=== PATIENT | male | born 1940 | race Caucasian/White ===

== ENCOUNTER 2019-02-02 09:10 | Emergency (ER) | payer MEDICARE, SELFPAY ==
[2019-02-02 09:20] VITALS: PULSE 87; RESP 16; TEMP 36.9; O2SAT 98
--- NOTE | 2019-02-02 09:45 | ED.GENADUL_ITS ---
Discharge Plan Disposition Patient Disposition: HOME Condition: Serious Discharge Details Chief Complaint: Abd Prob Clinical Impression: Abdominal mass, RUQ (right upper quadrant), Urinary retention, Elevated liver enzymes Primary Care Provider: None,None ED Provider: Sidra Taylor Home Meds and New Rx's Prescriptions: Continued omeprazole 20 mg Capsule,Delayed Release(Dr/Ec) 20 mg PO DAILY RF: 0 tamsulosin 0.4 mg Capsule 0.8 mg PO QID RF: 0 Discharge Instructions Instructions: Urinary Retention in Men (ED), Urinary Leg Bag (GEN) Additional Instructions: Encourage hydration. Please follow up with urology for your urinary retention. Catheter care as instructed by nursing. technical training coordinator will call with appointment, number listed below if you do not hear from them Tuesday. In regard to your mass, I am unclear as to your exact diagnosis but it is highly suspicious for cancer. Have placed a request for palliative care consultation. technical training coordinator will contact you regarding primary care follow up. If you develop pain, fevers, change in bowel habits or other new/worsening symptoms please seek care urgently once again. Discharge Data Discharge Date/Time-TO BE ENTERED AT DEPARTURE: 02/02/19 16:29 Medical Decision Making Patient presents today with fairly vague complaints. He is initially concerned about his urination and feels that he has had more urinary hesitancy and frequency recently. No dysuria, no scrotal pain. Denies any flank pain. Has known history of BPH and reports that he has been evaluated by urologist historically was advised Dukes catheter placement for which the patient has not followed through as of yet. Denies any fevers or chills. Patient also reports she fell 2 days ago when he lost his balance while furniture walking. Patient had polio as a child in his chronic weakness associated with this. Reports that he typically walks with 2 more markers but at home walks with one and furniture walks the other arm. Reports that he lost his balance and went forward striking his head against the wall. No loss of consciousness but states that he was dazed 20 minutes. Denies any headache at this time. On exam, he is resting comfortably. No outward evidence of trauma on exam. No abdominal pain with palpation. In the patient's age and mechanism of injury, I feel that imaging is appropriate. This is had some urinary symptoms, will obtain a postvoid residual, urinalysis and assess patient's kidney function with baseline labs. Patient had >600cc in his bladder on bladder scan, did not need to urinate. Will place dukes. Patient tolerated insertion well. CT was reviewed by radiologist: Images obtained through the lung apices are unremarkable. Tracheolaryngeal structures appear intact. No cervical mass or adenopathy seen. There is upper cervical kyphosis. There are degenerative changes of the facet joints and vertebral endplates. There is marked narrowing of intervertebral disc spaces, particularly at C4-5 and C5-6. No evidence of acute fracture or facet dislocation. There is moderate generalized cerebral atrophy. There is no evidence of acute intracranial hemorrhage, mass effect or midline shift. No calvarial fracture identified. The orbital and temporal bone structures appear intact. Paranasal sinuses and mastoid air cells are well aerated. IMPRESSION: No evidence of acute cervical fracture or dislocation. No evidence of acute intracranial injury. Labs significant for mild anemia with Hgb of 13.3. Potassium slightly low at 3.4. His AST is elevated at 187, ALT is elevated 288, alk phos elevated 331. Albumin is low at 2.7. Urine significant for moderate amount of blood, this may be associated with the catheter insertion. Negative nitrate, negative leukocyte esterase. Contacted the patient's primary care and patient has not had elevated liver enzymes historically. I am concerned that this may be associated with his recent GI upset for which he says primary care week ago. Plan for ultrasound. I discussed the findings with the patient and his family. Patient is now reporting that he has had increased fatigue over the past year. Is endorsing more right upper quadrant pain. Has had unexplained weight loss, at least 10 pounds in the past month. Does report that his appetite has been slightly diminished. Is now endorsing difficulty sleeping. Endorses night sweats. Daughter is reporting that she has been concerned regarding his color change and increased fatigue over the past 6 months. Patient has never had a colonoscopy and endoscopy. His brother did pass away from gastric cancer. Will change ultrasound order to CT abdomen and pelvis. FINDINGS: Images obtained through the lung bases are unremarkable. Spleen contains multiple small calcified granulomas. The gallbladder is distended with a markedly thickened and heterogeneous irregular contour wall. There is loss of the fat plane between the gallbladder and hepatic flexure of the colon. There is increased attenuation of pericholecystic fat at multiple sites. There is loss of the fat plane between the gallbladder and hepatic parenchyma with abnormal attenuation in the adjacent hepatic parenchyma. No biliary dilatation seen. There is portal adenopathy with enlarged portal nodes measuring up to about 3 cm in diameter. Slight prominence of mesenteric lymph nodes is noted but is nonspecific. No other focal bowel abnormality seen. No evidence of obstruction. Pancreas appears normal. Abdominal aorta is of normal diameter with some calcified thrombus of the wall but no aneurysm and no significant abnormality of major branch vessels. Kidneys and adrenals are unremarkable in appearance except for a couple of incidental left renal cysts. Prostate is enlarged. Urinary bladder is collapsed with a Dukes catheter in position and the urinary bladder wall is probably thickened. 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 Portal adenopathy noted. Discussed these. Findings with the patient and his family at length. We did discuss that this is very suspicious for cancerous etiology. Patient is very excited about the news. He reports that I have been praying for this for many years. It seems to be linked to the fact that his significant other has been deteriorating health. At this time, he does not wish to pursue any treatment. Does not want referral to oncology. We did discuss palliative versus hospice care and a referral will be sent. Patient is new to the area and I have asked her career manager help establish prompt follow-up with primary care. I did offer the patient any assistance I could offer to help with symptomatic management but at this point, he denies any pain, vomiting. Feels like he is managing well. He was given return precautions and is able to return with any new or worsening symptoms. All his questions and concerns were addressed and he is in agreement with this plan. technical training coordinator came to evaluate the patient and is inabolved in follow up plan. HPI General Mode of arrival: wheelchair . Date/Time Provider Initiated Documentation: 02/02/19 09:25 . Limitations to Documentation: no limitations . Information obtained by: patient, family and RN notes reviewed . HPI Narrative: Patient is an 78-year-old male with history of polio and BPH, presenting today with multiple chief complaints. Patient initially reports that he fell 2 days ago and struck his head. He does typically walk with 2 arm crutches. When he is at home, uses 1 and furniture walks with the other hand. Reports he was at home and began losing his balance and fell forward striking his head against the wall. Denies any loss of consciousness but states that he was kind of out of it for approximately 20 minutes. then had noted that the patient was belligerent. He denies any headache at this time. Has had chronic visual changes but no acute change in sitting his head. Denies any other injury the time of the incident. States that he does not fall infrequently. Patient is also endorsing some abdominal fullness particularly over the lower aspect. Patient does have history of prostrate hypertrophy. He has been evaluated by urologist who recommended Dukes insertion but patient reports that they had declined at that time. He denies any dysuria. States that in recent days he is only been able to dribble and that his prostate has become more symptomatic for him. He denies any fevers or chills. Denies any back pain. Patient does have chronic pain in his neck but no change with this. He denies any chest pain. Shortness of breath. Is not noted any rash. Related Data Home Medications Medication Instructions Recorded Confirmed omeprazole 20 mg PO DAILY 02/02/19 02/02/19 tamsulosin 0.8 mg PO QID 02/02/19 02/02/19 General Stated Complaint: Abd Prob ALEN: 3 Review of Systems Constitutional Constitutional: Reports as per HPI, Denies chills, Reports fatigue, Denies fever(s), Denies headache(s), Reports night sweats, Denies weakness and Reports weight loss Eyes Eyes: Reports as per HPI, Denies blurry vision, Denies change in vision and Denies loss of vision ENT Ears, Nose, Mouth, and Throat: Denies abnormal hearing and Denies headache(s) Cardiovascular Cardiovascular: Reports as per HPI, Denies chest pain and Denies dyspnea Respiratory Respiratory: Reports as per HPI, Denies cough, Denies pain on inspiration, Denies pain with cough and Denies dyspnea Gastrointestinal Gastrointestinal: Reports as per HPI, Denies abdominal pain, Denies change in bowel habits, Denies nausea, Denies vomiting and Reports other ( Indigestion) Genitourinary Genitourinary: Reports as per HPI, Denies dysuria, Denies flank pain, Denies scrotal swelling, Denies testicular mass, Denies testicular pain, Reports urinary frequency, Reports urinary hesitancy, Denies urinary incontinence and Denies urinary urgency Musculoskeletal Musculoskeletal: Reports as per HPI Integumentary/Breasts Skin/Breast: Reports as per HPI and Denies rash Neurologic Neurologic: Reports as per HPI, Denies abnormal hearing, Denies abnormal movements, Denies abnormal speech, Denies headache(s), Denies lack of co ordination, Denies focal weakness, Denies loss of vision, Denies seizure-like activity, Denies paresthesias and Denies weakness Endocrine Endocrine: Reports fatigue [facility] Social History Smoking/Tobacco Use Status: Never Alcohol Intake: former Substance use type: does not use Current gender identity: male Do you feel safe at home: Yes Do you feel safe in your relationship?: Yes Exam Const General: cooperative, healthy appearing, comfortable, no acute distress, well developed and well groomed Nutritional Appearance: average body habitus and well nourished Orientation: alert, awake and oriented x3 HENMT Head: normal to inspection, no palpable skull fracture, normocephalic and atraumatic Ears: hearing grossly normal bilaterally, external ears normal and TM's normal bilaterally General nose exam: external nose normal Mouth: oral mucosae normal, lip normal and tongue normal Throat: posterior oropharynx normal Eyes General: appearance normal, both eyes and all related structures Visual White: normal visual white by confrontation Alignment and Position: alignment normal Periorbital: periorbital findings normal Eyelids: eyelids normal Conjunctivae: conjunctivae normal Pupils: PERRL EOM: EOM intact bilaterally Neck Neck: normal visual inspection, full ROM, no lymphadenopathy, no meningeal signs, trachea midline and supple Chest Chest: normal inspection of the chest, normal palpation of entire chest wall, no crepitus and no localized rib tenderness Resp Effort & Inspection: normal respiratory effort, able to speak in complete sentences and no respiratory distress Auscultation: clear to auscultation bilaterally, no rales, no rhonchi and no wheezes Cardio Rate: regular rate Rhythm: regular rhythm Heart Sounds: S1 normal and S2 normal GI Inspection: normal to inspection, no abdominal wall ecchymosis, no edema and non-distended Palpation: soft, not firm, no guarding, hepatomegaly, no pulsatile masses, not rigid, no splenomegaly and nontender Percussion: normal to percussion Auscultation: normal bowel sounds Back/Spine/Pelvis Back: no CVA tenderness Cervical Spine: normal cervical lordosis and cervical ROM normal Thoracic/Lumbar Spine: thoracic and lumbar spine normal to inspection, thoraco- lumbar ROM normal, No thoraco-lumbar ROM limited, No thoraco-lumbar spasm and No thoracic spinal tenderness Pelvis: no pain with anterior-posterior compression and no pain with lateral compression Skin General skin exam: no rashes or lesions noted Lesions: no lesions Rashes: no rashes Trauma: no lacerations or abrasions Wounds: no wounds Neuro General: alert, awake, oriented x3, gait normal, tone normal and moves all extremities Cranial Nerves: CN's II-XI intact bilaterally Cognition: normal cognition Speech: speech normal Gait: normal gait Motor: muscle tone normal throughout and strength 5/5 throughout Sensory Exam: no sensory deficits noted (no saddle paresthesias) Extrem General: normal to inspection, normal capillary refill, no pedal edema and no calf tenderness Psych Appearance: grossly normal and well kempt Mental Status: mental status grossly normal Speech and Movement: speech and movement normal Course Vital Signs Vital signs: Vital Signs Temperature 36.9 C 02/02/19 09:20 Pulse 87 02/02/19 09:20 Respiratory Rate 16 02/02/19 09:20 Pulse Oximetry 98 02/02/19 09:20 Temperature 36.9 C 02/02/19 09:20 Pulse 87 02/02/19 09:20 Respiratory Rate 16 02/02/19 09:20 Blood Pressure Position Supine 02/02/19 09:20 Pulse Oximetry 98 02/02/19 09:20 Oxygen Delivery Method Room Air 02/02/19 09:20 Oxygen Flow Rate 0 02/02/19 09:20 Pain Level 5 02/02/19 09:20
[2019-02-02 10:21] LABS: Abs Immature Grans 0.05 k/cumm (0.0-0.09); Absolute Basophil Count 0.03 k/cumm (0.0-0.2); Absolute Eosinophil Count 0.08 k/cumm (0.0-0.7); Absolute Lymphocyte Count 1.61 k/cumm (1.2-3.4); Absolute Monocyte Count 1.08 k/cumm (0.11-0.7); Absolute Neutrophil Count 6.37 k/cumm (1.2-6.7); Basophils % 0.3; Eosinophils % 0.9; HGB 13.3 g/dL (13.5-17.5); Immature Grans % 0.5; Lymphocytes % 17.5; Mean Corp. HGB Concentration 34.1 g/dL (32.0-36.0); Mean Corpuscular Hemoglobin 29.6 pg (27.0-33.0); Mean Corpuscular Volume 86.9 fL (80-95); Mean Platelet Volume 10.6 fL (8.0-11.0); Monocytes % 11.7; Neutrophils % 69.1; Platelet Count 307 x1000/uL (130-400); RBC 4.49 m/cumm (4.50-6.00); RBC Distribution Width 12.3 % (11.8-14.1); White Blood Cell Count 9.22 k/cumm (4.4-10.8)
[2019-02-02 10:45] LABS: Bilirubin Negative (Negative); Blood Moderate (Negative); Clarity Clear (Clear); Glucose Negative (Negative); Ketones Negative (Negative); Leukocyte Esterase Negative (Negative); Nitrite Negative (Negative); Specific Gravity 1.015 (1.005-1.025); pH 6.5 (5-8)
[2019-02-02] MEDS: Lactated Ringers 1,000 ML 125 ML IV (10:45)
[2019-02-02 10:51] LABS: ALT 288 U/L (16-63); AST 187 U/L (15-37); Albumin 2.7 g/dL (3.4-5.0); Alkaline Phosphatase 331 U/L (46-116); Anion Gap 10.4 mmol/L (3-11); BUN 16 mg/dL (7-18); Bilirubin, Total 0.6 mg/dL (0.2-1.0); CO2 26.6 mmol/L (21.0-32.0); CREATININE 0.95 mg/dL (0.70-1.30); Calcium 8.7 mg/dL (8.5-10.1); Chloride 102 mmol/L (98-107); Glucose 122 mg/dL (70-100); Potassium 3.4 mmol/L (3.5-5.1); Sodium 139 mmol/L (136-145); Total Protein 7.1 g/dL (6.4-8.2)
[2019-02-02 10:54] LABS: Bacteria Few HPF (Negative); C & S Indicated? No; Casts Negative LPF (Negative); Crystals Negative HPF (Negative); Epithelial Cells Negative HPF (Negative); Mucus Moderate (Negative); RBC >50 (0-2); WBC 0-2 HPF (0-5)
--- NOTE | 2019-02-02 10:55 | DI.CT_ITS ---
EXAM: CT HEAD CERVICAL SPINE WO CLINICAL HISTORY: fall. TECHNIQUE: CT examination of the cervical spine was performed utilizing multi slice acquisition and multiplanar reconstruction. Noncontrast cranial CT was performed. COMPARISON: No exams were available for comparison FINDINGS: Images obtained through the lung apices are unremarkable. Tracheolaryngeal structures appear intact. No cervical mass or adenopathy seen. There is upper cervical kyphosis. There are degenerative changes of the facet joints and vertebral e ndplates. There is marked narrowing of intervertebral disc spaces, particularly at C4-5 and C5-6. No evidence of acute fracture or facet dislocation. There is moderate generalized cerebral atrophy. There is no evidence of acute intracranial hemorrhag e, mass effect or midline shift. No calvarial fracture identified. The orbital and temporal bone stru ctures appear intact. Paranasal sinuses and mastoid air cells are well aerated. IMPRESSION: No evidence of acute cervical fracture or dislocation. No evidence of acute intracranial injury.
--- NOTE | 2019-02-02 12:00 | DI.CT_ITS ---
EXAM: CT ABDOMEN PELVIS W CLINICAL HISTORY: elevated liver enzymes, RUQ pain, diffuse discomfort. TECHNIQUE: CT examination of the abdomen and pelvis was performed utilizing biphasic hepatic imaging with intravenous infusion of 100 cc of Omnipaque 350. COMPARISON: No exams were available for comparison FINDINGS: Images obtained through the lung bases are unremarkable. Spleen contains multiple small calcified gra nulomas. The gallbladder is distended with a markedly thickened and heterogeneous irregular contour wall. Ther e is loss of the fat plane between the gallbladder and hepatic flexure of the colon. There is increas ed attenuation of pericholecystic fat at multiple sites. There is loss of the fat plane between the g allbladder and hepatic parenchyma with abnormal attenuation in the adjacent hepatic parenchyma. No bi liary dilatation seen. There is portal adenopathy with enlarged portal nodes measuring up to about 3 cm in diameter. Slight prominence of mesenteric lymph nodes is noted but is nonspecific. No other foc al bowel abnormality seen. No evidence of obstruction. Pancreas appears normal. Abdominal aorta is of normal diameter with some calcified thrombus of the wall but no aneurysm and no significant abnormality of major branch vessels. Kidneys and adrenals are unremarkable in appearance except for a couple of incidental left renal cysts. Prostate is enlarged. Urinary bladder is collaps ed with a Hutchinson catheter in position and the urinary bladder wall is probably thickened. IMPRESSION: Findings suspicious for gallbladder carcinoma with suspected invasion of surrounding structures inclu ding mesentery, hepatic flexure of the colon and liver. Portal adenopathy noted.
--- NOTE | 2019-02-02 12:11 | NUR.NOTE ---
at bedside reviewing results with pt Nursing Note:
[2019-02-02 12:30] VITALS: BP 129/70; PULSE 69; RESP 16; O2SAT 96
[2019-02-02 15:00] VITALS: BP 125/73; PULSE 70; RESP 16; O2SAT 95
--- NOTE | 2019-02-02 16:18 | NUR.NOTE ---
pt changed over to leg bag instructed on proper use Nursing Note:
[2019-02-02 16:33] VITALS: BP 132/87; PULSE 72; RESP 16; O2SAT 96
[2019-02-05 13:35] LABS: Hepatitis A Antibody IgM Negative (NEGAT); Hepatitis B Core Antibody Negative (NEGAT); Hepatitis B surface Ag Negative (NEGAT); Hepatitis C Ab w Rflx HCV PCR Negative (NEGAT)
--- NOTE | 2019-02-12 14:59 | CMPROGNOTE_ITS ---
- If Service Date Differs Date of service: 02/12/19 Time of Service: 14:59 Care Management Progress Note S/O: MEMO spoke Adams's daughter Susan Blandon her contact number is she was able to bring her Dad to his Urology appointment. She has not heard from Palliative care or new pcp referral. CM contacted [facility] and provided daughters number, as well as palliative both will follow up with her to schedule the appointments. MEMO also sent a referral to [facility] with Susan's contact information to review options counseling. CM provided contact information for questions or concerns.
== END 2019-02-02 16:29 | disposition home or self-care (01) ==
PROVIDERS: Emergency Provider Physician Assistant
DX: R19.07 Generalized intra-abdominal and pelvic swelling, mass and lump (principal); S09.90XA Unspecified injury of head, initial encounter; N40.1 Benign prostatic hyperplasia with lower urinary tract symptoms; R33.9 Retention of urine, unspecified; R94.5 Abnormal results of liver function studies; W18.49XA Other slipping, tripping and stumbling without falling, initial encounter
CPT/HCPCS: 36415; 51702; 80053; 86704; 86709; 86803; 87340; 96360; 99285; 70450; 72125; 74177; 81003; 81015; 85025; 99284

== ENCOUNTER → 2019-02-09 11:51 | Outpatient (BNVA) | payer MEDICARE, SELFPAY | PROVIDERS: Visit Provider Urology | DX: R33.9 Retention of urine, unspecified (principal) | CPT/HCPCS: 99203; 99214 ==

== ENCOUNTER → 2019-03-06 15:58 | Outpatient (BNVA) | payer MEDICARE, SELFPAY | PROVIDERS: PCP Nurse Practitioner Family; Referring Provider Nurse Practitioner Family; Visit Provider Urology | DX: Z46.6 Encounter for fitting and adjustment of urinary device (principal); R33.9 Retention of urine, unspecified; Z96.0 Presence of urogenital implants | CPT/HCPCS: 51705; 99212; 99213 ==

== ENCOUNTER → 2019-04-11 15:07 | Outpatient (BNVA) | payer MEDICARE, SELFPAY | PROVIDERS: PCP Nurse Practitioner Family; Referring Provider Nurse Practitioner Family; Visit Provider Nurse Practitioner Gerontology | DX: R33.9 Retention of urine, unspecified (principal); Z46.6 Encounter for fitting and adjustment of urinary device; I10 Essential (primary) hypertension | CPT/HCPCS: 51702; 99213 ==

== ENCOUNTER → 2019-05-14 13:55 | Outpatient (BNVA) | payer MEDICARE, SELFPAY | PROVIDERS: PCP Nurse Practitioner Family; Referring Provider Nurse Practitioner Family; Visit Provider Urology | DX: R33.9 Retention of urine, unspecified (principal) | CPT/HCPCS: 51702; 99213 ==

== ENCOUNTER 2019-05-22 22:10 | Outpatient (REF) | payer MEDICARE, SELFPAY ==
[2019-05-22 20:35] LABS: ALT 129 U/L (16-63); AST 43 U/L (15-37); Albumin 3.3 g/dL (3.4-5.0); Alkaline Phosphatase 103 U/L (46-116); Anion Gap 8.2 mmol/L (3-11); BUN 16 mg/dL (7-18); Bilirubin, Total 0.3 mg/dL (0.2-1.0); CO2 27.8 mmol/L (21.0-32.0); CREATININE 0.82 mg/dL (0.70-1.30); Calcium 9.1 mg/dL (8.5-10.1); Chloride 109 mmol/L (98-107); Glucose 84 mg/dL (74-106); Sodium 145 mmol/L (136-145); Total Protein 6.2 g/dL (6.4-8.2)
== END 2019-05-22 22:30 ==
LOC: LBN 22:10
PROVIDERS: PCP Nurse Practitioner Family; Visit Provider Family Medicine
DX: D37.6 Neoplasm of uncertain behavior of liver, gallbladder and bile ducts (principal)
CPT/HCPCS: 80053

== ENCOUNTER → 2019-06-12 12:53 | Outpatient (BNVA) | payer MEDICARE, SELFPAY | PROVIDERS: PCP Nurse Practitioner Family; Referring Provider Nurse Practitioner Family; Visit Provider Nurse Practitioner Gerontology | DX: R33.9 Retention of urine, unspecified (principal) | CPT/HCPCS: 51702; 99213 ==

== ENCOUNTER → 2019-07-11 13:52 | Outpatient (BNVA) | payer MEDICARE, SELFPAY | PROVIDERS: PCP Nurse Practitioner Family; Referring Provider Nurse Practitioner Family; Visit Provider Nurse Practitioner Gerontology | DX: R33.9 Retention of urine, unspecified (principal); Z46.6 Encounter for fitting and adjustment of urinary device; I10 Essential (primary) hypertension | CPT/HCPCS: 51702; 99213 ==

== ENCOUNTER → 2019-08-10 13:50 | Outpatient (BNVA) | payer MEDICARE, SELFPAY | PROVIDERS: PCP Nurse Practitioner Family; Referring Provider Nurse Practitioner Family; Visit Provider Urology | DX: R33.8 Other retention of urine (principal); Z46.6 Encounter for fitting and adjustment of urinary device; I10 Essential (primary) hypertension | CPT/HCPCS: 51702; 99212 ==

== ENCOUNTER 2019-08-31 12:08 | Outpatient (REF) | payer MEDICARE, SELFPAY ==
[2019-08-31 20:32] LABS: Clarity CLOUDY; Nucleated Cells 142 /MM3 (0-0); Source R KNEE
[2019-08-31 20:41] LABS: Polynuclear Cells 28 % (0-0)
[2019-08-31 20:42] LABS: Mononuclear Cells 72 % (0-0); Other Cells 0 0 (0-0)
== END 2019-08-31 12:28 ==
LOC: NCHCN 12:08
PROVIDERS: PCP Nurse Practitioner Family; Visit Provider Internal Medicine
DX: M25.461 Effusion, right knee (principal)
CPT/HCPCS: 87070; 87205; 89051; 89060

== ENCOUNTER 2019-09-13 11:13 | Outpatient (CLI) | payer MEDICARE, SELFPAY ==
--- NOTE | 2019-09-13 11:00 | DI.RAD_ITS ---
EXAM: XR STANDING ALIGNMENT CLINICAL HISTORY: right knee pain TECHNIQUE: COMPARISON: No exams were available for comparison FINDINGS: Standing alignment views were obtained. There are mild degenerative changes of both hips. There are moderate degenerative changes involving the joints of both knees. IMPRESSION:
--- NOTE | 2019-09-13 11:00 | DI.RAD_ITS ---
EXAM: XR KNEE RT 2V AP,LAT CLINICAL HISTORY: right knee pain TECHNIQUE: COMPARISON: No exams were available for comparison FINDINGS: Two views of the knee were obtained. There is marked narrowing of the medial tibiofemoral cartilagin ous joint space with subchondral sclerosis medial tibial plateau. Mild marginal osteophyte formation noted involving the joints of the knee. IMPRESSION: Moderate to severe degenerative change predominantly involving medial tibiofemoral joint
== END 2019-09-13 11:33 ==
PROVIDERS: PCP Nurse Practitioner Family; Referring Provider Nurse Practitioner Family; Visit Provider Student in an Organized Health Care Education/Training Program
DX: M25.561 Pain in right knee (principal); M16.0 Bilateral primary osteoarthritis of hip; M17.0 Bilateral primary osteoarthritis of knee; M25.761 Osteophyte, right knee; M17.11 Unilateral primary osteoarthritis, right knee; M17.12 Unilateral primary osteoarthritis, left knee; G14 Postpolio syndrome; I10 Essential (primary) hypertension; R33.8 Other retention of urine; Z46.6 Encounter for fitting and adjustment of urinary device
CPT/HCPCS: 51702; 99203; 99213; 99214; 73560; 77073

== ENCOUNTER 2019-10-04 02:47 | Outpatient (CLI) | payer MEDICARE, SELFPAY ==
[2019-10-04] MEDS: Breeza Beverage 473 ML BTL PO ×2 (10:16→10:17)
[2019-10-04] MEDS: Omnipaque 350 MG/ML 50 ML BTL PO (10:17)
[2019-10-04 10:55] LABS: CREATININE 0.91 mg/dL (0.70-1.30)
[2019-10-04] MEDS: Normal Saline - Diluent 50 ML VIAL IV (11:15)
[2019-10-04] MEDS: Omnipaque 350 MG/ML 100 ML BTL IJ (11:15)
--- NOTE | 2019-10-04 11:45 | DI.CT_ITS ---
EXAM: CT ABDOMEN PELVIS W CLINICAL HISTORY: METASTATIC CARCINOMA, C80.1 TECHNIQUE: CT examination of the abdomen and pelvis was performed with intravenous infusion of 100 c c of Omnipaque 350 and ingestion of dilute barium. COMPARISON: CT CT ABDOMEN PELVIS W from 02/02/2019 FINDINGS: Biphasic hepatic imaging was obtained. Examination is compared with prior study 02/02/2019. Patient reportedly has history of metastatic carcinoma. Images obtained through the lung bases are unremarkable. Gallbladder is markedly decreased in size since the prior study and there is markedly decreased gallb ladder wall thickness in comparison with the prior study. No biliary dilatation seen. Portal adenop athy again noted, mild, unchanged. Largest portal node measures roughly 24 x 9 millimeters in diamet er on transaxial imaging. No new adenopathy seen in the abdomen or pelvis. Pancreas appears normal. Spleen appears normal. Adrenals and kidneys appear normal except for an incidental lower pole left renal cyst, unchanged. N o focal bowel pathology identified, appendix is normal, no evidence of obstruction. Abdominal aorta is of normal diameter and no major vascular abnormality is seen. No significant abdominal wall hernia. No abdominal or pelvic adenopathy. There is a Hutchinson catheter in the urinary bladder which has a mildly thickened wall, nonspecific, susp ect bladder outlet obstruction. Nonspecific sclerotic focus in left pubic bone, unchanged from prior study. Bone scan may be obtaine d for further evaluation if clinically indicated. IMPRESSION: Interval decrease in size and wall thickness of gallbladder in a patient with reported history of car cinoma, presumably gallbladder carcinoma. Portal jose enlargement again noted unchanged from prior s tudy of January 2019. No evidence of remote metastatic disease.
== END 2019-10-04 03:07 ==
PROVIDERS: PCP Nurse Practitioner Family; Visit Provider Nurse Practitioner Family
DX: I10 Essential (primary) hypertension (principal); Z01.812 Encounter for preprocedural laboratory examination; D37.6 Neoplasm of uncertain behavior of liver, gallbladder and bile ducts; C80.1 Malignant (primary) neoplasm, unspecified; N32.89 Other specified disorders of bladder; N28.1 Cyst of kidney, acquired
CPT/HCPCS: 74177; 82565; J3490; Q9967

== ENCOUNTER → 2019-10-17 10:56 | Outpatient (BNVA) | payer MEDICARE, SELFPAY | PROVIDERS: PCP Nurse Practitioner Family; Referring Provider Nurse Practitioner Family; Visit Provider Nurse Practitioner Gerontology | DX: R33.8 Other retention of urine (principal); Z46.6 Encounter for fitting and adjustment of urinary device | CPT/HCPCS: 51702; 99213 ==

== ENCOUNTER → 2019-11-23 13:59 | Outpatient (BNVA) | payer MEDICARE, SELFPAY | PROVIDERS: PCP Nurse Practitioner Family; Referring Provider Nurse Practitioner Family; Visit Provider Urology | DX: R33.8 Other retention of urine (principal); I10 Essential (primary) hypertension | CPT/HCPCS: 51702; 99212 ==

== ENCOUNTER → 2020-01-03 09:09 | Outpatient (BNVA) | payer MEDICARE, SELFPAY | PROVIDERS: PCP Nurse Practitioner Family; Referring Provider Nurse Practitioner Family; Visit Provider Nurse Practitioner Gerontology | DX: R33.8 Other retention of urine (principal); I10 Essential (primary) hypertension | CPT/HCPCS: 51702; 99213 ==

== ENCOUNTER → 2020-01-24 10:16 | Outpatient (BNVA) | payer MEDICARE, SELFPAY | PROVIDERS: PCP Nurse Practitioner Family; Referring Provider Nurse Practitioner Family; Visit Provider Nurse Practitioner Gerontology | DX: R33.8 Other retention of urine (principal); Z46.6 Encounter for fitting and adjustment of urinary device; I10 Essential (primary) hypertension | CPT/HCPCS: 51702; 99213 ==

== ENCOUNTER → 2020-02-28 14:35 | Outpatient (BNVA) | payer MEDICARE, SELFPAY | PROVIDERS: PCP Nurse Practitioner Family; Referring Provider Nurse Practitioner Family; Visit Provider Urology | DX: R33.8 Other retention of urine (principal); Z46.6 Encounter for fitting and adjustment of urinary device; I10 Essential (primary) hypertension | CPT/HCPCS: 51702; 99212 ==

== ENCOUNTER → 2020-04-04 12:39 | Outpatient (BNVA) | payer MEDICARE, SELFPAY | PROVIDERS: PCP Nurse Practitioner Family; Referring Provider Nurse Practitioner Family; Visit Provider Urology | DX: R33.8 Other retention of urine (principal); Z46.6 Encounter for fitting and adjustment of urinary device | CPT/HCPCS: 51702; 99212 ==

== ENCOUNTER 2020-04-17 22:37 | Outpatient (REF) | payer MEDICARE, SELFPAY ==
[2020-04-17 21:27] LABS: Anion Gap 9.8 mmol/L (3-11); BUN 18 mg/dL (7-18); CO2 24.2 mmol/L (21.0-32.0); CREATININE 0.91 mg/dL (0.70-1.30); Calcium 9.2 mg/dL (8.5-10.1); Chloride 107 mmol/L (98-107); Glucose 97 mg/dL (74-106); Potassium 4.2 mmol/L (3.5-5.1); Sodium 141 mmol/L (136-145)
== END 2020-04-17 22:57 ==
LOC: NCHCN 22:37
PROVIDERS: PCP Nurse Practitioner Family; Visit Provider Nurse Practitioner Family
DX: I10 Essential (primary) hypertension (principal); E78.00 Pure hypercholesterolemia, unspecified; G62.9 Polyneuropathy, unspecified; G14 Postpolio syndrome; I73.9 Peripheral vascular disease, unspecified
CPT/HCPCS: 80048

== ENCOUNTER → 2020-05-05 09:52 | Outpatient (BNVA) | payer MEDICARE, SELFPAY | PROVIDERS: PCP Nurse Practitioner Family; Referring Provider Nurse Practitioner Family; Visit Provider Nurse Practitioner Gerontology | DX: R33.8 Other retention of urine (principal); Z46.6 Encounter for fitting and adjustment of urinary device | CPT/HCPCS: 51702; 99212 ==

== ENCOUNTER → 2020-06-10 14:26 | Outpatient (BNVA) | payer MEDICARE, SELFPAY | PROVIDERS: PCP Nurse Practitioner Family; Referring Provider Nurse Practitioner Family; Visit Provider Nurse Practitioner Gerontology | DX: R33.8 Other retention of urine (principal) | CPT/HCPCS: 51702; 99214 ==

== ENCOUNTER 2020-08-08 15:15 | Outpatient (REF) | payer MEDICARE, SELFPAY ==
[2020-08-08 20:38] LABS: Abs Immature Grans 0.03 10^3/uL (0.0-0.06); Absolute Basophil Count 0.07 10^3/uL (0.0-0.2); Absolute Eosinophil Count 0.17 10^3/uL (0.0-0.7); Absolute Lymphocyte Count 2.64 10^3/uL (1.2-3.4); Absolute Monocyte Count 0.89 10^3/uL (0.1-0.8); Absolute Neutrophil Count 4.94 10^3/uL (1.2-6.7); Basophils % 0.8; Eosinophils % 1.9; HCT 45.7 % (40.0-50.0); HGB 15.6 g/dL (13.5-17.5); Immature Grans % 0.3; Lymphocytes % 30.2; MCH 29.5 pg (27.0-33.0); MCHC 34.1 % (32.0-36.0); MCV 86.6 fL (80-95); MPV 11.2 fL (8.0-11.0); Monocytes % 10.2; Neutrophils % 56.6; Nucleated RBC 0 %; Platelet Count 191 10^3/uL (130-400); RBC 5.28 10^6/uL (4.36-5.78); RDW 13.2 % (11.8-14.1); WBC 8.74 10^3/uL (4.4-10.8)
[2020-08-08 21:05] LABS: ALT 44 U/L (16-63); AST 28 U/L (15-37); Albumin 3.8 g/dL (3.4-5.0); Alkaline Phosphatase 82 U/L (46-116); Anion Gap 9.9 mmol/L (3-11); BUN 25 mg/dL (7-18); Bilirubin, Total 0.5 mg/dL (0.2-1.0); CO2 24.1 mmol/L (21.0-32.0); CREATININE 1.1 mg/dL (0.70-1.30); Calcium 9.7 mg/dL (8.5-10.1); Chloride 106 mmol/L (98-107); Glucose 134 mg/dL (74-106); Potassium 4.3 mmol/L (3.5-5.1); Sodium 140 mmol/L (136-145); Total Protein 7.3 g/dL (6.4-8.2)
== END 2020-08-08 15:16 | disposition home or self-care (01) ==
LOC: NCHCN 15:15
PROVIDERS: PCP Nurse Practitioner Family; Visit Provider Family Medicine
DX: R10.9 Unspecified abdominal pain (principal)
CPT/HCPCS: 80053; 85025

== ENCOUNTER → 2021-07-15 08:40 | Outpatient (BNVA) | payer MEDICARE, SELFPAY | PROVIDERS: PCP Nurse Practitioner Family; Referring Provider Nurse Practitioner Family; Visit Provider Nurse Practitioner Gerontology | DX: R33.8 Other retention of urine (principal) | CPT/HCPCS: 99441; 99442 ==

== ENCOUNTER → 2022-01-15 14:42 | Outpatient (BNVA) | payer MEDICARE, SELFPAY | PROVIDERS: PCP Nurse Practitioner Family; Referring Provider Nurse Practitioner Family; Visit Provider Urology | DX: R31.0 Gross hematuria (principal) | CPT/HCPCS: 51702 ==

== ENCOUNTER → 2022-01-18 09:05 | Outpatient (BNVA) | payer MEDICARE, SELFPAY | PROVIDERS: PCP Nurse Practitioner Family; Referring Provider Nurse Practitioner Family; Visit Provider Nurse Practitioner Gerontology | DX: R33.8 Other retention of urine (principal); R31.0 Gross hematuria | CPT/HCPCS: 51702 ==

== ENCOUNTER 2022-01-21 16:15 | Outpatient (REF) | payer MEDICARE, SELFPAY ==
--- NOTE | 2022-01-21 14:37 | PAPNONF_PTH ---
PATIENT: Adams Mcdonald LOC: [facility]#:[id number] AGE/SX: 81/M ROOM: RE01/21/[address]: Siobhan Shetty : 1940 BED: DIS: 01/21/2022 SPEC #: [id number] RECD: 01/21/22 18:46 STATUS: ATTILA REQ #: [id number] GEMMA: 01/21/22 14:[address]: Siobhan Shetty DEPT: [facility] Cytology RECD BY: Melvi El Tissues: 1 - BODY FLUID CYTO(SPUTUM/URINE)UV Procedures: BODY FLUID CYTO(URINE/SPUTUM) Comments: [id number] (TOTAL VOLUME = 20 ml) (20 ml URINE & 20 ml CYTOLYT ADDED)
[2022-01-21 19:27] LABS: Abs Immature Grans 0.02 10^3/uL (0.0-0.06); Absolute Basophil Count 0.05 10^3/uL (0.0-0.2); Absolute Eosinophil Count 0.13 10^3/uL (0.0-0.7); Absolute Monocyte Count 0.95 10^3/uL (0.1-0.8); Absolute Neutrophil Count 4.24 10^3/uL (1.2-6.7); Basophils % 0.6; Eosinophils % 1.7; HCT 43.6 % (40.0-50.0); HGB 15.3 g/dL (13.5-17.5); Immature Grans % 0.3; Lymphocytes % 30.8; MCH 30.1 pg (27.0-33.0); MCHC 35.1 % (32.0-36.0); MCV 86 fL (80-95); MPV 11.5 fL (8.0-11.0); Monocytes % 12.2; Neutrophils % 54.4; Platelet Count 158 10^3/uL (130-400); RBC 5.09 10^6/uL (4.36-5.78); RDW 12.4 % (11.8-14.1); RDW-SD 38.9 fL; WBC 7.79 10^3/uL (4.4-10.8)
[2022-01-21 19:59] LABS: ALT 38 U/L (16-63); AST 32 U/L (15-37); Albumin 3.8 g/dL (3.4-5.0); Alkaline Phosphatase 85 U/L (46-116); Anion Gap 9.8 mmol/L (3-11); BUN 19 mg/dL (7-18); Bilirubin, Total 0.7 mg/dL (0.2-1.0); CO2 26.2 mmol/L (21.0-32.0); Calcium 9.4 mg/dL (8.5-10.1); Chloride 104 mmol/L (98-107); Estimated GFR 74.68 (mL/min/1.73m2); Glucose 85 mg/dL (74-106); Potassium 4.1 mmol/L (3.5-5.1); Sodium 140 mmol/L (136-145); Total Protein 7.2 g/dL (6.4-8.2)
[2022-01-22 19:39] LABS: PSA, Diagnostic 7.3 ng/mL (<=6.5)
== END 2022-01-21 16:16 | disposition home or self-care (01) ==
LOC: NCHCN 16:15
PROVIDERS: PCP Nurse Practitioner Family; Visit Provider Nurse Practitioner Family
DX: L98.9 Disorder of the skin and subcutaneous tissue, unspecified (principal); R31.0 Gross hematuria; F32.9 Major depressive disorder, single episode, unspecified
CPT/HCPCS: 80053; 84153; 85025; 88104

== ENCOUNTER → 2022-02-02 01:18 | Outpatient (CLI) | payer MEDICARE, SELFPAY ==
--- NOTE | 2022-02-02 11:00 | DI.CT_ITS ---
Exam(s) CT ABDOMEN PELVIS WO/W EXAM: CT ABDOMEN PELVIS WO/W CLINICAL HISTORY: ALIRIO HEMATURIA, R31.0; BPH, N40.0. TECHNIQUE: Imaging Protocol: Axial computed tomography images with coronal and sagittal reformatted images were created and reviewed CONTRAST MATERIAL: Intravenous: Omnipaque 100cc Oral: None COMPARISON: CT CT ABDOMEN PELVIS W from 10/04/2019 FINDINGS: VISUALIZED LUNG BASES: No nodules nor pleural effusions evident. Scarring in the left lung base is u nchanged. ABDOMEN: There is no ascites. LIVER: There are no focal hepatic lesions evident . GALLBLADDER/BILIARY: Gallbladder is contracted. No obvious calcified gallstones noted within its dim inished lumen. CBD is not dilated. Measures 6 millimeters. PANCREAS: No evidence of pancreatic mass nor dilatation of the pancreatic duct. SPLEEN: Spleen size upper normal. Multiple tiny splenic calcified granulomas are noted. Splenic and portal veins are patent. ADRENALS: There are no significant adrenal masses. KIDNEYS:Right kidney unremarkable. There is an exophytic nodule off the posterolateral aspect of the left kidney noted which measures 1.3 by 1.0 cm, unchanged. This is possibly a hemorrhagic cyst give n that Hounsfield units are above simple fluid and internal density is uniform, plus the fact that it has not increased in size Celso exophytic. There is also a parapelvic cyst in the left kidney which m easures 1 x 1.1 cm.. ABDOMINAL AORTA: Atherosclerotic. Maximum external diameter 2 cm. Mild arterial megaly of both comm on iliac arteries but no gross aneurysm dilatation of the vessels. LYMPH NODES:There is no retroperitoneal nor paraaortic adenopathy. ABDOMINAL WALL: No evidence of significant anterior abdominal wall nor inguinal hernia. GI: There is no evidence of bowel obstruction, free air, nor abscess. PELVIS: GI: No evidence of appendicitis.No evidence of sigmoid diverticulitis. LYMPH NODES: There is no intrapelvic nor inguinal adenopathy. REPRODUCTIVE: Enlarged and partially calcified prostate gland. Urinary bladder measures 6 cm wide by 6 cm craniocaudal by 4.5 cm AP. URINARY BLADDER: There is a Hutchinson catheter in the urinary bladder. The bladder is collapsed. OSSEOUS: No significant osseous lesions. IMPRESSION: 1. There is Hutchinson catheter in the urinary bladder, in the bladder is collapsed around this Hutchinson cath eter. The prostate gland is enlarged, measuring 6 x 6 x 4.5 cm. 2. Solitary nondilated ureter on each side. Right kidney unremarkable. There is an exophytic nodule off lateral cortex towards the lower pole the left kidney which measures 13 x 10 millimeters, simila r to October 2019. Internal density is uniform but somewhat higher than typical fluid. Recommend follo w-up ultrasound examination to ensure that this is a hemorrhagic cyst (as a close to a solid nodule). 3. No obvious masses in the renal pelves and ureters in this patient with hematuria. 4. Other findings as above. RADIATION DOSE DELIVERED: 2,637.23mGy.cm Total DLP DATA REPOSITORY: All CT scans at this facility are submitted to the National Radiology Data Registry (NRDR) Dose Index Registry (DIR) with the [employer] (ACR). RADIATION OPTIMIZATION: All CT scans at this facility use at least one of these dose optimization te chniques: automated exposure control; mA and/or kV adjustment per patient size (includes targeted exa ms where dose is matched to clinical indication); or iterative reconstruction.
[2022-02-02] MEDS: Normal Saline Flush 10 ML SYR IVP (11:37)
[2022-02-02] MEDS: Omnipaque 350 MG/ML 500 ML BTL-Imaging package IJ (11:38)
== END ==
PROVIDERS: PCP Nurse Practitioner Family; Visit Provider Nurse Practitioner Family
DX: R31.0 Gross hematuria (principal); N40.0 Benign prostatic hyperplasia without lower urinary tract symptoms
CPT/HCPCS: 74178

== ENCOUNTER 2022-02-11 11:35 | Outpatient (REF) | payer MEDICARE, SELFPAY ==
--- NOTE | 2022-02-11 11:10 | SKI_PTH ---
PATIENT: Adams Mcdonald LOC: [facility]#:[id number] AGE/SX: 81/M ROOM: RE02/11/[address]: Siobhan Shetty : 1940 BED: DIS: 02/11/2022 SPEC #: [id number] RECD: 02/11/22 17:11 STATUS: ATTILA REQ #: [id number] GEMMA: 02/11/22 11:[address]: Siobhan Shetty DEPT: Surgical Specimen RECD BY: Melvi El Tissues: 1 - SKIN BIOPSY(SHAVE/PUNCH) 2 - SKIN BIOPSY(SHAVE/PUNCH) Procedures: SKIN LEVEL 4 Comments: [id number]
== END 2022-02-11 11:36 | disposition home or self-care (01) ==
LOC: NCHCN 11:35
PROVIDERS: PCP Nurse Practitioner Family; Visit Provider Nurse Practitioner Family
DX: D22.5 Melanocytic nevi of trunk (principal)
CPT/HCPCS: 88305

== ENCOUNTER → 2022-02-15 09:54 | Outpatient (BNVA) | payer MEDICARE, SELFPAY | PROVIDERS: PCP Nurse Practitioner Family; Referring Provider Nurse Practitioner Family; Visit Provider Nurse Practitioner Gerontology | DX: R31.0 Gross hematuria (principal); R33.8 Other retention of urine | CPT/HCPCS: 99213 ==

== ENCOUNTER 2022-03-11 12:08 | Emergency (ER) | payer MEDICARE, SELFPAY ==
[2022-03-11 12:29] VITALS: BP 123/62; PULSE 63; RESP 14; TEMP 36.5; O2SAT 98
--- NOTE | 2022-03-11 12:45 | RT.EKG_ITS ---
APPROVED REPORT Exam: Resting ECG Reason for Exam: dizzy Patient Location: E HR:55 bpm ECG Measurements Heart Rate 55 AXIS OR 156 P 23 QRSd 103 QRS -7 QT 414 T -5 QTc 398 Conclusion Sinus bradycardia...rate< 60. Sinus. No STEMI. I have reviewed and interpreted ECG and agree with software generated interpretation.
--- NOTE | 2022-03-11 13:00 | DI.RAD_ITS ---
Exam(s) XR CHEST 2V PA LATERAL EXAM: XR CHEST 2V PA LATERAL CLINICAL HISTORY: cough, weakness, r/o acute disease TECHNIQUE: 2D digital imaging was performed of the chest. Two images were obtained. PA and lateral views were obtained. COMPARISON: No exams were available for comparison FINDINGS: MEDIASTINUM: Normal. HEART: Normal. PULMONARY VASCULATURE: Normal. LUNGS: Clear. PLEURAL SPACE: No pleural effusion or pneumothorax. BONE:Within normal limits for the patient's age. OTHER FINDINGS:Normal. IMPRESSION: No acute pulmonary findings. DATA REPOSITORY: RADIATION DOSE DELIVERED:
--- NOTE | 2022-03-11 13:00 | DI.CT_ITS ---
Exam(s) CT HEAD WO EXAM: CT HEAD WO CLINICAL HISTORY: worsening left leg weakness, r/o cva. TECHNIQUE: Imaging Protocol: Axial computed tomography images with coronal and sagittal reformatted images were created and reviewed COMPARISON: CT CT HEAD CERVICAL SPINE WO from 02/02/2019 CR XR CHEST 2V PA LATERAL from 03/11/2022 FINDINGS: Ventricles and Extra axial spaces: Normal in size and morphology for the patient's age. Hemorrhage: None. Cerebral parenchyma: No evidence of an acute territorial infarct are present. Areas of decreased att enuation are seen in the white matter consistent with small vessel ischemic disease. 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 Midline shift: None. Brainstem/Cerebellum: Normal. Calvarium: Normal. Visualized Paranasal sinuses/Mastoids: Clear. Soft Tissues: Unremarkable. IMPRESSION: 1. No acute intracranial process. 2. Findings were discussed with Dr. Miranda at 2:30 p.m. on 03/11/2022. RADIATION DOSE DELIVERED: 792.17mGy.cm Total DLP DATA REPOSITORY: All CT scans at this facility are submitted to the National Radiology Data Registry (NRDR) Dose Index Registry (DIR) with the [employer] (ACR). RADIATION OPTIMIZATION: All CT scans at this facility use at least one of these dose optimization te chniques: automated exposure control; mA and/or kV adjustment per patient size (includes targeted exa ms where dose is matched to clinical indication); or iterative reconstruction.
[2022-03-11 13:24] LABS: Source Nasal/Nares
--- NOTE | 2022-03-11 13:24 | ED.GENADUL_ITS ---
Discharge Plan Disposition Patient Disposition: HOME Condition: Improving Discharge Details Clinical Impression: UTI (urinary tract infection), Intermittent self-catheterization of bladder Primary Care Provider: Siobhan Shetty ED Provider: Radha Miranda Home Meds and New Rx's Prescriptions: New levofloxacin 750 mg tablet 750 mg PO DAILY 4 Days Qty: 4 0RF Continued garlic 500 mg capsule 500 mg PO DAILY finasteride 5 mg tablet 5 mg PO DAILY Qty: 90 3RF lisinopril 10 mg Tablet 10 mg PO DAILY Discharge Instructions Instructions: Urinary Tract Infection in Men (ED) Additional Instructions: Your lab test today revealed that you have a urinary tract infection. You were given 1 dose of antibiotics here and a prescription for antibiotics was sent electronically to your pharmacy. Start taking this prescription tomorrow until finished. The remainder of your blood tests, EKG and imaging today are reassuring and show no evidence of acute concerning or significant findings. Drink plenty of fluids and get plenty of rest. Follow-up with your primary care doctor in 1 week. Return to the emergency department with any worsening or new concerning symptoms. Discharge Data Discharge Physician: Radha Miranda Medical Decision Making 81-year-old male with a history of hypertension, hyperlipidemia, BPH and history of polio as a child with chronic lower extremity weakness presents with dizziness and fatigue for the past few days with increasing bilateral leg weakness, worse in the left leg since last night. Vitals within normal limits. Patient oriented but responses are slow and with slight slurred speech but no facial droop. Nontoxic-appearing. Normal bilateral upper extremity strength. Difficulty lifting both legs off bed but with normal plantar and dorsiflexion strength. Differential diagnosis includes dehydration, UTI, pneumonia, COVID, electrolyte abnormality, CVA. History and presentation does not appear consistent with meningitis. Will obtain screening labs, urinalysis, COVID, CT head, chest x-ray and give fluids and reassess. Labs and imaging reviewed. Normal white blood cell count. Normal electrolytes. COVID-negative. Troponin negative. Urinalysis notes findings consistent with UTI. CT head and chest x-ray negative. Patient reassessed and he feels much better and would like to go home. Patient was able to ambulate with PT and is ambulating at his baseline. Son-in-law feels comfortable with patient going home. A dose of Levaquin was given here and a prescription sent electronically to his pharmacy. Patient was placed on urology follow-up list for UTI in the setting of self-catheterization. Advised to follow up with the primary care doctor for re-evaluation. Usual and customary return precautions given prior to discharge. Medical Records Medical records reviewed: Yes I reviewed the patient's medical records. Imaging Data Radiologic Study: Radiologist's impression: CT HEAD WO CLINICAL HISTORY: ? worsening left leg weakness, r/o cva. ? TECHNIQUE:? Imaging Protocol: Axial computed tomography images with coronal and sagittal reformatted images were created and reviewed COMPARISON:? CT CT HEAD ? CERVICAL SPINE WO from 02/02/2019 CR XR CHEST 2V PA ? LATERAL from 03/11/2022 FINDINGS: Ventricles and Extra axial spaces: Normal in size and morphology for the patient's age. Hemorrhage: None. Cerebral parenchyma: No evidence of an acute territorial infarct are present.? Areas of decreased attenuation are seen in the white matter consistent with small vessel ischemic disease.? 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 Midline shift: None. Brainstem/Cerebellum: Normal. Calvarium: Normal. Visualized Paranasal sinuses/Mastoids: Clear. Soft Tissues: Unremarkable. IMPRESSION: 1. No acute intracranial process. XR CHEST 2V PA ? LATERAL CLINICAL HISTORY:? cough, weakness, r/o acute disease TECHNIQUE:? 2D digital imaging was performed of the chest.? Two images were obtained.? PA and lateral views were obtained. COMPARISON:? No exams were available for comparison FINDINGS: MEDIASTINUM: Normal.? HEART: Normal. PULMONARY VASCULATURE: Normal. LUNGS: Clear. ? PLEURAL SPACE: No pleural effusion or pneumothorax. BONE:Within normal limits for the patient's age.? OTHER FINDINGS:Normal.? IMPRESSION: No acute pulmonary findings. Lab Data Lab results reviewed: Yes I reviewed the patient's lab results. Labs: 03/11/22 14:44 Urine - Reflex from Ua Urine Culture - Pending Laboratory Tests Range/Units 03/11/22 03/11/22 03/11/22 13:10 13:15 13:15 WBC (4.4-10.8) 10^3/uL 6.21 RBC (4.36-5.78) 10^6/uL 4.87 Hgb (13.5-17.5) g/dL 14.6 Hct (40.0-50.0) % 42.6 MCV (80-95) fL 88 MCH (27.0-33.0) pg 30.0 MCHC (32.0-36.0) % 34.3 RDW (11.8-14.1) % 12.7 Plt Count (130-400) 10^3/uL 150 MPV (8.0-11.0) fL 11.3 H Immature Gran % 0.3 Neutrophils % 57.5 Lymphocytes % 30.1 Monocytes % 9.7 Eosinophils % 1.6 Basophils % 0.8 Nucleated RBC % (0.0-0.3) % 0.0 Absolute Neutrophils (1.2-6.7) 10^3/uL 3.57 Absolute Lymphocytes (1.2-3.4) 10^3/uL 1.87 Absolute Monocytes (0.1-0.8) 10^3/uL 0.60 Absolute Eosinophils (0.0-0.7) 10^3/uL 0.10 Absolute Basophils (0.0-0.2) 10^3/uL 0.05 Sodium (136-145) mmol/L 140 Potassium (3.5-5.1) mmol/L 3.9 Chloride (98-107) mmol/L 106 Carbon Dioxide (21.0-32.0) mmol/L 28.6 Anion Gap (3-11) mmol/L 5.4 BUN (7-18) mg/dL 17 Creatinine (0.70-1.30) mg/dL 0.9 Est GFR (CKD-EPI 2020) (mL/min/1.73m2) 84.74 Glucose (74-106) mg/dL 111 H Calcium (8.5-10.1) mg/dL 9.4 Magnesium (1.8-2.4) mg/dL 1.8 Total Bilirubin (0.2-1.0) mg/dL 0.6 AST (15-37) U/L 29 ALT (16-63) U/L 33 Alkaline Phosphatase (46-116) U/L 83 Troponin I (<or=60) ng/L < 50 Total Protein (6.4-8.2) g/dL 6.9 Albumin (3.4-5.0) g/dL 3.4 Urine Color (Yellow) Urine Clarity (Clear) Urine pH (5-8) Ur Specific [place] (1.005-1.025) Urine Protein (Negative) mg/dL Urine Ketones (Negative) mg/dL Urine Blood (Negative) Urine Nitrite (Negative) Urine Bilirubin (Negative) Urine Urobilinogen (Up TO 0.2) EU/dL Ur Leukocyte Esterase (Negative) Urine RBC (0-2) HPF Urine WBC (0-5) HPF Ur Epithelial Cells (Negative) HPF Urine Crystals (Negative) HPF Urine Bacteria (Negative) HPF Urine Casts (Negative) LPF Urine Mucus (Negative) Ur Culture Indicated? Urine Glucose (Negative) mg/dL COVID-19 Source Nasal/Nares SARS-CoV-2 (PCR) (Negative) Negative Range/Units 03/11/22 14:44 WBC (4.4-10.8) 10^3/uL RBC (4.36-5.78) 10^6/uL Hgb (13.5-17.5) g/dL Hct (40.0-50.0) % MCV (80-95) fL MCH (27.0-33.0) pg MCHC (32.0-36.0) % RDW (11.8-14.1) % Plt Count (130-400) 10^3/uL MPV (8.0-11.0) fL Immature Gran % Neutrophils % Lymphocytes % Monocytes % Eosinophils % Basophils % Nucleated RBC % (0.0-0.3) % Absolute Neutrophils (1.2-6.7) 10^3/uL Absolute Lymphocytes (1.2-3.4) 10^3/uL Absolute Monocytes (0.1-0.8) 10^3/uL Absolute Eosinophils (0.0-0.7) 10^3/uL Absolute Basophils (0.0-0.2) 10^3/uL Sodium (136-145) mmol/L Potassium (3.5-5.1) mmol/L Chloride (98-107) mmol/L Carbon Dioxide (21.0-32.0) mmol/L Anion Gap (3-11) mmol/L BUN (7-18) mg/dL Creatinine (0.70-1.30) mg/dL Est GFR (CKD-EPI 2020) (mL/min/1.73m2) Glucose (74-106) mg/dL Calcium (8.5-10.1) mg/dL Magnesium (1.8-2.4) mg/dL Total Bilirubin (0.2-1.0) mg/dL AST (15-37) U/L ALT (16-63) U/L Alkaline Phosphatase (46-116) U/L Troponin I (<or=60) ng/L Total Protein (6.4-8.2) g/dL Albumin (3.4-5.0) g/dL Urine Color (Yellow) Yellow Urine Clarity (Clear) Sl Cloudy Urine pH (5-8) 6.0 Ur Specific [place] (1.005-1.025) >= 1.030 H Urine Protein (Negative) mg/dL Negative Urine Ketones (Negative) mg/dL Negative Urine Blood (Negative) Moderate H Urine Nitrite (Negative) Positive H Urine Bilirubin (Negative) Negative Urine Urobilinogen (Up TO 0.2) EU/dL 0.2 Ur Leukocyte Esterase (Negative) Small H Urine RBC (0-2) HPF 5-10 H Urine WBC (0-5) HPF 5-10 Ur Epithelial Cells (Negative) HPF Negative Urine Crystals (Negative) HPF Negative Urine Bacteria (Negative) HPF Many Urine Casts (Negative) LPF Negative Urine Mucus (Negative) Moderate Ur Culture Indicated? Yes Urine Glucose (Negative) mg/dL Negative COVID-19 Source SARS-CoV-2 (PCR) (Negative) ECG Data Attestation: I personally reviewed and interpreted this ECG (s) as follows: Interpretation: rate of 55, sinus, normal axis, no stemi. HPI General Mode of arrival: ambulatory . Date/Time Provider Initiated Documentation: 03/11/22 12:13 . Limitations to Documentation: no limitations . Information obtained by: patient . HPI Narrative: Patient is an 81-year-old male who is DNR/DNI with a history of hypertension, hyperlipidemia, BPH, polio as a child with chronic lower extremity weakness at baseline for which he uses a wheelchair and a walker presents with worsening of bilateral leg weakness, most specifically in his left leg since last night. Patient also states he has felt more Yaya and dizzy in the last few days. He describes dizziness as a lightheadedness sensation. He also complains of blurry vision occurring intermittently over the last 6 months. He also admits to a chronic productive cough over the few weeks but states he is unsure of the color of the sputum. 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 Patient's son-in-law states that patient has been unable to care for his or transfer and lift her due to his weakness. Son-in-law states that patient's daughter checked on him yesterday and noted that he had not taken his blood pressure medication lisinopril for the past days. His blood pressure was 160s/90s so she gave him a dose yesterday. Patient states he did take a dose of the lisinopril today. He also states he took a sleeping pill mirtazapine this morning at 9:30 AM so that may be contributing to his lightheadedness and fatigue. He states he is unsure why he took the sleeping pill this morning. Son-in-law states that patient is usually quite sharp in his speech and states he appears to, fatigued with slurred speech since yesterday. Patient denies any fever, sore throat, chest pain, difficulty breathing, abdominal pain or urinary symptoms. He does self catheterize his urine. Patient also states he did not eat or drink much throughout the day. He states he often does not have water throughout the day. Related Data Home Medications Medication Instructions Recorded Confirmed garlic 500 mg capsule 500 mg PO DAILY 01/15/22 03/11/22 finasteride 5 mg tablet 5 mg PO DAILY #90 tabs 01/18/22 03/11/22 levofloxacin 750 mg tablet 750 mg PO DAILY 4 days #4 tabs 03/11/22 lisinopril 10 mg tablet 10 mg PO DAILY 03/11/22 03/11/22 Previous Rx's Medication Instructions Recorded finasteride 5 mg tablet 5 mg PO DAILY #90 tabs 01/18/22 levofloxacin 750 mg tablet 750 mg PO DAILY 4 days #4 tabs 03/11/22 Allergies Allergy/AdvReac Type Severity Reaction Status Date / Time Penicillins Allergy Skin Rash Unverified 03/11/22 12:25 General Stated Complaint: CVA/TIA ALEN: 3 Review of Systems All systems reviewed & are unremarkable except as noted in HPI and below Constitutional Constitutional: Reports as per HPI, Denies chills and Denies fever(s) Eyes Eyes: Denies blurry vision ENT Ears, Nose, Mouth, and Throat: Reports dizziness, Denies sore throat and Denies throat swelling Cardiovascular Cardiovascular: Denies chest pain and Denies dyspnea Respiratory Respiratory: Denies cough and Denies dyspnea Gastrointestinal Gastrointestinal: Denies abdominal pain, Denies diarrhea and Denies vomiting Genitourinary Genitourinary: Denies hematuria and Denies dysuria Musculoskeletal Musculoskeletal: Denies back pain and Denies numbness Integumentary/Breasts Skin/Breast: Denies lesions and Denies rash Neurologic Neurologic: Reports dizziness, Reports localized weakness and Denies numbness Allergic/Immunologic Allergic/Immunologic: Denies throat swelling PFSH All Active Problems (Updated 03/11/22 @ 16:23 by Radha Miranda DO) UTI (urinary tract infection) (Acute) Intermittent self-catheterization of bladder (Acute) Gross hematuria (Acute) Frequent falls (Acute) Crutches as ambulation aid (Acute) Unilateral primary osteoarthritis, left knee (Acute) Localized osteoarthritis of right knee (Acute) 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 (Chronic) monthly change with urology POLST (Physician Orders for Life-Sustaining Treatment) (Acute) Medical History (Updated 03/11/22 @ 16:23 by Radha Miranda DO) BPH (benign prostatic hyperplasia) Depression DNI (do not intubate) DNR (do not resuscitate) High cholesterol Hypertension Left inguinal hernia Palliative care patient Post-polio syndrome Self-catheterizes urinary bladder Urinary retention Family History Mother , age 83 from Alz Dis Dementia Alzheimer's dementia Father , age 83 from aspiration pneumonia following hip fx, SNF placement Heart disease Aspiration pneumonia Hip fracture Brother , age 58 Stomach cancer Daughter No problems noted. Daughter No problems noted. 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 Pets and animals: No Current gender identity: male What is your relationship status?: How often do you talk on the phone with friends or family?: three or more times per week How often do you get together with friends or relatives?: three or more times per week How often do you attend episcopal or confucianism services?: 4 or more times per year Panel score (0-1 are the most socially isolated patients): 3 What type of physical activity do you participate in: assisted ambulation Duration: 15-30 minutes/day Frequency: daily Lilia/L[employer] Day: [employer]ism Special lilia needs: No Agree to transfusion: No Seatbelt use: always Water heater temp set <120 deg: Yes Working smoke detector in home: Yes Fire extinguisher in home: Yes Firearms in home: No Do you feel safe at home: Yes Do you feel safe in your relationship?: Yes Additional Social history: Lives with his Claire. [place]. Moved to [place] [id number] from [place] where he raised his family and lived x 50 years. Daughter Susan lives near-by. Visits every day. He has lived a good life. Previously on hospice when imaging showed gallbladder mass. Repeat imaging showed resolution. Now working on walking more, wants to use only one crutch. Falls regularly. Advised caution. Exam Const General: cooperative, no acute distress and other (drowsy) Orientation: alert, awake and oriented x3 HENMT Head: normal to inspection Face and sinus: normal facial exam Eyes General: appearance normal, both eyes and all related structures Pupils: PERRL EOM: EOM intact bilaterally Neck Neck: normal visual inspection and No submandibular swelling Lymphatic: no lymphadenopathy noted Chest Chest: normal inspection of the chest and no tenderness Resp Effort & Inspection: normal respiratory effort and able to speak in complete sentences Auscultation: clear to auscultation bilaterally Cardio Rate: regular rate Rhythm: regular rhythm GI Inspection: normal to inspection Palpation: soft, not firm, not rigid and nontender Auscultation: hypoactive bowel sounds Male General Exam: Yes normal external exam Back/Spine/Pelvis Thoracic/Lumbar Spine: thoracic and lumbar spine normal to inspection Pelvis: no pain with anterior-posterior compression Skin General skin exam: no rashes or lesions noted Neuro General: patient alert, patient awake, patient oriented x3 and no meningeal signs Cranial Nerves: CN's II-XI intact bilaterally Cognition: normal cognition Speech: abnormal speech (slowed, minimally slurred, no facial droop) Motor: other (MS 5/5 b/l UE. Normal plantar/dorsiflexion but difficulty lifting b/l legs) Sensory Exam: no sensory deficits noted Extrem General: normal to inspection, full ROM, capillary refill normal, no calf tenderness bilaterally and no edema Psych Appearance: grossly normal Mental Status: mental status grossly normal Speech and Movement: speech and movement normal Affect: normal affect Course Vital Signs Vital signs: Vital Signs Temperature 97.7 F 03/11/22 12:29 Pulse 63 03/11/22 12:29 Respiratory Rate 14 03/11/22 12:29 Blood Pressure 123/62 03/11/22 12:29 Pulse Oximetry 98 03/11/22 12:29 Temperature 97.7 F 03/11/22 12:29 Temperature Source Temporal Artery Scan 03/11/22 12:29 Pulse 63 03/11/22 12:29 Respiratory Rate 14 03/11/22 12:29 Blood Pressure 123/62 03/11/22 12:29 Blood Pressure Position Sitting 03/11/22 12:29 Pulse Oximetry 98 03/11/22 12:29 Oxygen Delivery Method Room Air 03/11/22 12:29 Oxygen Flow Rate 0 03/11/22 12:29 Pain Level 0 03/11/22 12:29 Lab/Test Results Lab/Test Results: Laboratory Tests Range/Units 03/11/22 13:10 COVID-19 Source Nasal/Nares
[2022-03-11 13:27] LABS: Abs Immature Grans 0.02 10^3/uL (0.0-0.06); Absolute Basophil Count 0.05 10^3/uL (0.0-0.2); Absolute Lymphocyte Count 1.87 10^3/uL (1.2-3.4); Absolute Neutrophil Count 3.57 10^3/uL (1.2-6.7); Basophils % 0.8; Eosinophils % 1.6; HCT 42.6 % (40.0-50.0); HGB 14.6 g/dL (13.5-17.5); Immature Grans % 0.3; Lymphocytes % 30.1; MCHC 34.3 % (32.0-36.0); MCV 88 fL (80-95); MPV 11.3 fL (8.0-11.0); Monocytes % 9.7; Neutrophils % 57.5; Platelet Count 150 10^3/uL (130-400); RBC 4.87 10^6/uL (4.36-5.78); RDW 12.7 % (11.8-14.1); WBC 6.21 10^3/uL (4.4-10.8)
[2022-03-11] MEDS: Normal Saline 250 ML 500 ML IV (13:29)
[2022-03-11 13:32] VITALS: BP 126/60; PULSE 51; PULSE 59; RESP 18; O2SAT 94
[2022-03-11 13:33] VITALS: PULSE 52; RESP 16; O2SAT 98
[2022-03-11 13:40] VITALS: PULSE 51; RESP 16; O2SAT 98
[2022-03-11 13:49] LABS: ALT 33 U/L (16-63); AST 29 U/L (15-37); Albumin 3.4 g/dL (3.4-5.0); Alkaline Phosphatase 83 U/L (46-116); Anion Gap 5.4 mmol/L (3-11); BUN 17 mg/dL (7-18); Bilirubin, Total 0.6 mg/dL (0.2-1.0); CO2 28.6 mmol/L (21.0-32.0); CREATININE 0.9 mg/dL (0.70-1.30); Calcium 9.4 mg/dL (8.5-10.1); Chloride 106 mmol/L (98-107); Estimated GFR 84.74 (mL/min/1.73m2); Glucose 111 mg/dL (74-106); Magnesium 1.8 mg/dL (1.8-2.4); Potassium 3.9 mmol/L (3.5-5.1); Sodium 140 mmol/L (136-145); Total Protein 6.9 g/dL (6.4-8.2); Troponin I < 50 ng/L (<or=60)
[2022-03-11 14:17] LABS: COVID-19 PCR Negative (Negative)
[2022-03-11 14:52] LABS: Bilirubin Negative (Negative); Blood Moderate (Negative); Clarity Sl Cloudy (Clear); Glucose Negative (Negative); Ketones Negative (Negative); Leukocyte Esterase Small (Negative); Nitrite Positive (Negative); Specific Gravity >= 1.030 (1.005-1.025); Urobilinogen 0.2 EU/dL (Up TO 0.2)
[2022-03-11 15:01] LABS: Bacteria Many HPF (Negative); C & S Indicated? Yes; Casts Negative LPF (Negative); Crystals Negative HPF (Negative); Epithelial Cells Negative HPF (Negative); Mucus Moderate (Negative)
--- NOTE | 2022-03-11 15:36 | PT.INIE ---
Date of service: 03/11/22 Time of Service: 15:36 PT Notes Physical Therapy Inpatient Initial Evaluation Date: 03/11/2022 Referring Doctor: Radha Miranda MD PT Orders: PT CONSULT: Safety Consult for D/C. H/o chronic leg weakness S/P polio as a child, now increased weakness L leg Precautions: Fall. Standard. Activity as tolerated. Patient Profile/Admitting Diagnosis: Patient is an 81-year-old male patient with history of poliomyelitis during childhood who presented to the ED today with complaints of slurrring of speech and worsening B LE weakness with L more affected than the R. Patient had childhood poliomyelitis that affected his L lower extremity. Per chart review, patient has had intermittent dizziness and lightheadedness with blurriness of vision for the past 6 months. He is the main caregiver for his at home. CT of the head and neck are both unremarkable. PMHX: All Active Problems?(Updated 03/11/22 @ 16:23 by Radha Miranda DO) UTI (urinary tract infection) (Acute) Intermittent self-catheterization of bladder (Acute) Gross hematuria (Acute) Frequent falls (Acute) Crutches as ambulation aid (Acute) Unilateral primary osteoarthritis, left knee (Acute) Localized osteoarthritis of right knee (Acute) 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 (Chronic) monthly change with urology POLST (Physician Orders for Life-Sustaining Treatment) (Acute) Medical History?(Updated 03/11/22 @ 16:23 by Radha Miranda DO) BPH (benign prostatic hyperplasia) Depression DNI (do not intubate) DNR (do not resuscitate) High cholesterol Hypertension Left inguinal hernia Palliative care patient Post-polio syndrome Self-catheterizes urinary bladder Urinary retention Social History/Home Situation: Patient lives with in a private home with a ramp to enter. He is the main caregiver of who has been chronically ill and has been mobility compromised. does receive assistance from PT and nursing regularly. Patient is modified independent with the front-wheeled walker. Equipment Owned/DME: Has all equipment needed at home. Subjective: Patient and caregiver stats that patient now feels much better and is confident that he can manage okay at home. Patient verbalizes that he is at baseline mobility level at this time. There is still some residual dizziness from the sleeping pill he took unintentionally this morning but overall he feels that he will do better once the infection that he was told he has is treated with antibiotics. He very much wants to go home to his right after this evaluation and is agreeable to referral to home health PT if he feels that he needs it. Objective: General Observation: Patient is supine in stretcher. Distraught and anxious about going home to his . Friend present and is advocating for patient. Mental Status: Alert and oriented as to person, place, time, and purpose. Able to pay attention, focus, and respond appropriately. Pain: Denies Vital Signs: WNL as closely monitored by nursing staff ROM: Right Upper Extremity: Shoulder Flexion allows up to 90 degrees. Shoulder abduction 90 degrees. Elbow flexion WFL. Wrist flexion WFL. Functional opening and closing of hand WFL. Left Upper Extremity: Shoulder Flexion allows up to 90 degrees. Shoulder abduction 90 degrees. Elbow flexion WFL. Wrist flexion WFL. Functional opening and closing of hand WFL. Right Lower Extremity: Hip flexion WFL. Hip abduction WFL. Knee flexion 30 degrees to 100 degrees. Knee extension -30 degrees. Ankle dorsiflexion WFL. Ankle plantarflexion WFL. Left Lower Extremity: Hip flexion WFL. Hip abduction WFL. Knee flexion 40 degrees to 100 degrees. Knee extension -40 degrees. Ankle dorsiflexion WFL. Ankle plantarflexion WFL. Strength: Right Upper Extremity: Shoulder flexors 3-/5. Shoulder abductors 3-/5. Elbow flexors 5/5. Elbow extensors 5/5. Form Setter Steel Pan Forms strong. Left Upper Extremity: Shoulder flexors 3-/5. Shoulder abductors 3-/5. Elbow flexors 5/5. Elbow extensors 5/5. Form Setter Steel Pan Forms strong. Right Lower Extremity: Hip flexors 4-/5. Hip abductors 4-/5. Knee flexors 3-/5. Knee extensors 3-/5. Ankle dorsiflexors 4-/5. Ankle plantarflexors 4-/5. Left Lower Extremity: Hip flexors 4-/5. Hip abductors 4-/5. Knee flexors 3-/5. Knee extensors 3-/5. Ankle dorsiflexors 4-/5. Ankle plantarflexors 4-/5. Bed Mobility/Transfers: Supine to sit independent Sit to supine independent Sit to stand independent with FWW Stand to sit independent with FWW Gait: Instructed patient with level surface ambulation of 80 feet requiring supervision. Gait scissoring where L foot is dragged from extended position instead of accelerating limb forward with risk of getting tangled onto the R foot. There is no heel strike on the L, no midtance, and very minimal hip flexion occurring resulting in toe dragging. However, both patient and caregiver/neighbor present during evaluation state that this is patient's baseline walking level for the past 20 years. Balance: Static Sitting: Normal Dynamic Sitting: Good Static Standing: Fair Dynamic Standing: Fair Special Tests: Mobility Limitations Standardized Measure [facility] AM-PAC 6 clicks Basic Mobility Inpatient Short Form: Raw Score: 23 CMS Score: 11% deficit Informed Consent/Education: Patient was instructed in purpose of PT consult. He understands the risk of any persistent dizziness and the effect of infection on his overall mobility level. he verbalizes that he can manage at home with the mobility process that he does and method of assistance he has been giving his for the past several years. Assessment: Gait scissoring and appears unsteady but this has been patient's baseline for the past 20 years. He has caregivers for his who can also look after him in case things get worse. He has agreed to working with PT should he feel that his safety level will become compromised. Patient presents with clinical signs and symptoms consistent with current/admitting diagnoses that have resulted to mobility limitations, gait instability, generalized weakness, and overall ADL decline as demonstrated by the following impairment level findings: 1. Decreased strength to B UE/LE major muscle groups with LL more affected than the R 2. Impaired standing balance 3. Impaired activity tolerance 4. Limitation of joint range of motion in L LE joints 5. Shortness of breath 6. Swelling Impairments are contributing to the following functional limitations: 1. Decline in bed mobility skills 2. Decline in transfer skills 3. Difficulty with ambulation without assistive device and physical assistance 4. Increased completion time for mobility ADL performance 5. Increased risk for falls 6. Difficulty with managing steps alone safely Patient is assessed as a 94123 moderate complexity based on the following: History: 81-year-old female with past medical history as indicated above Examination: Demonstrable impairment in strength, balance, and mobility level with underlying impairments and functional limitations as exhibited above as well as deficit score of 11% utilizing the [facility] Mobility Inpatient Short Form Presentation: Evolving Decision Makin moderate complexity Goals: N/A. PT evalaution only. Plan of Care/Treatment Plan: N/A. PT evalaution only. DISCHARGE RECOMMENDATIONS: [] Home with no services [] [X] Home with services. Patient will benefit from home health PT services in order to progress mobility level using least restrictive assistive ambulatory device, assess home safety, identify additional equipment needs, and establish a functional maintenance program that will increase ability of patient to remain at home. [] Home with outpatient PT [] [] SNF for continued rehabilitation [] [] [facility] [] [] SNF versus LTC based on ability to participate and progress [] TREATMENT CODE/TIME: 43300 x 32 minutes beginning at 15:36 PM. Thank you for the opportunity to participate in the care of this patient. Tarsha Patricio PT, DPT, CLT [facility] [place], [place]
[2022-03-11 16:25] VITALS: RESP 18
[2022-03-11] MEDS: levoFLOXacin 500 MG, levoFLOXacin 250 MG 750 MG PO (17:02)
--- NOTE | 2022-03-11 18:41 | NUR.NOTE ---
Nursing Note: referral to [facility] for urology
--- NOTE | 2022-03-14 10:04 | NUR.NOTE ---
Nursing Note:Accessed chart to look up whether or not on antibiotic.
== END 2022-03-11 17:15 | disposition home or self-care (01) ==
PROVIDERS: Emergency Provider Physician Assistant; PCP Nurse Practitioner Family
DX: N39.0 Urinary tract infection, site not specified (principal); R47.81 Slurred speech; I10 Essential (primary) hypertension; Z20.822 Contact with and (suspected) exposure to COVID-19
CPT/HCPCS: 36415; 80053; 87077; 87635; 93005; 97162; 99284; 99285; 70450; 71046; 81003; 81015; 83735; 84484; 85025; 87086; 87186; 93010

== ENCOUNTER → 2022-04-13 09:25 | Outpatient (BNVA) | payer MEDICARE, SELFPAY | PROVIDERS: PCP Nurse Practitioner Family; Referring Provider Nurse Practitioner Family; Visit Provider Nurse Practitioner Gerontology | DX: Z96.0 Presence of urogenital implants (principal); Z87.440 Personal history of urinary (tract) infections; R33.9 Retention of urine, unspecified | CPT/HCPCS: 99442 ==

== ENCOUNTER 2022-08-27 14:41 | Outpatient (REF) | payer MEDICARE, SELFPAY | END 2022-08-27 14:42 | disposition home or self-care (01) | LOC: NCHCN 14:41 | PROVIDERS: PCP Nurse Practitioner Family; Visit Provider Nurse Practitioner Family | DX: R35.0 Frequency of micturition (principal); N31.9 Neuromuscular dysfunction of bladder, unspecified; R33.9 Retention of urine, unspecified | CPT/HCPCS: 87077; 87086; 87186 ==

== ENCOUNTER 2022-09-11 12:00 | Outpatient (REF) | payer MEDICARE, SELFPAY ==
[2022-09-11 10:11] LABS: Bilirubin Negative (Negative); Blood Trace-intact (Negative); Clarity Sl Cloudy (Clear); Glucose Negative (Negative); Ketones Negative (Negative); Leukocyte Esterase Moderate (Negative); Nitrite Positive (Negative); Urobilinogen 0.2 mg/dL (Up to 0.2)
[2022-09-11 10:27] LABS: Bacteria Many HPF (Negative); C & S Indicated? C&S Done As Ordered; Casts Negative LPF (Negative); Crystals Moderate Amorphous HPF (Negative); Epithelial Cells Rare HPF (Negative); Mucus Negative (Negative); WBC >50 HPF (0-5)
== END 2022-09-11 12:01 | disposition home or self-care (01) ==
LOC: LBN 12:00
PROVIDERS: PCP Nurse Practitioner Family; Visit Provider Urology
DX: R33.9 Retention of urine, unspecified (principal); R31.9 Hematuria, unspecified
CPT/HCPCS: 81003; 81015; 87086

== ENCOUNTER 2022-09-13 18:39 | Outpatient (REF) | payer MEDICARE, SELFPAY | END 2022-09-13 18:40 | disposition home or self-care (01) | LOC: NCHCN 18:39 | PROVIDERS: PCP Nurse Practitioner Family; Visit Provider Nurse Practitioner Family | DX: R35.0 Frequency of micturition (principal) | CPT/HCPCS: 87086 ==

== ENCOUNTER → 2022-10-06 10:32 | Outpatient (BNVA) | payer MEDICARE, SELFPAY | PROVIDERS: PCP Nurse Practitioner Family; Referring Provider Nurse Practitioner Family; Visit Provider Nurse Practitioner Gerontology | DX: R33.9 Retention of urine, unspecified (principal); Z78.9 Other specified health status | CPT/HCPCS: 99442 ==

== ENCOUNTER 2023-02-14 15:29 | Outpatient (CLI) | payer MEDICARE, SELFPAY ==
--- NOTE | 2023-02-14 13:15 | DI.RAD_ITS ---
Exam(s) XR KNEE LT 3V AP,LAT,CHAR[place]TE EXAM: XR KNEE LT 3V AP,LAT,[place]TE CLINICAL HISTORY: eval L knee pain/OA. TECHNIQUE: 2D digital imaging was performed of the left knee. Four images were obtained. AP, later al and PA tunnel views were obtained. COMPARISON: CR XR STANDING ALIGNMENT from 09/13/2019 FINDINGS: BONES: No acute fracture is present. No bony destructive lesion is seen. JOINTS: There is marked narrowing of the medial femoral tibial joint space. Small osteophytes are se en at the posterior patella. No joint effusion is seen. No loose body. SOFT TISSUE: There is a well corticated osseous density lateral to the lateral femoral condyle which is unchanged. Atherosclerosis is present. IMPRESSION: Moderately severe osteoarthritis of the knee. DATA REPOSITORY: RADIATION DOSE DELIVERED:
== END 2023-02-14 15:30 | disposition home or self-care (01) ==
LOC: DIORS 15:29
PROVIDERS: PCP Nurse Practitioner Family; Referring Provider Nurse Practitioner Family; Visit Provider Student in an Organized Health Care Education/Training Program
DX: M17.12 Unilateral primary osteoarthritis, left knee (principal); M21.162 Varus deformity, not elsewhere classified, left knee
CPT/HCPCS: 73562; 99215

== ENCOUNTER 2023-10-27 18:02 | Emergency (ER) | payer MEDICARE, SELFPAY ==
[2023-10-27] VITALS (22 sets, daily range): BP systolic 159–196; BP diastolic 65–169; PULSE 70–103; RESP 12–24; TEMP 37–37.9; O2SAT 94–99
--- NOTE | 2023-10-27 18:00 | RT.EKG_ITS ---
APPROVED REPORT Exam: Resting ECG Reason for Exam: weakness Patient Location: E HR:102 bpm ECG Measurements Heart Rate 102 AXIS MI 145 P 28 QRSd 102 QRS -13 QT 334 T -2 QTc 437 Conclusion Sinus tachycardia...rate> 99 sinus tachycardia, left axis, non ischemic
--- NOTE | 2023-10-27 18:15 | DI.RAD_ITS ---
Exam(s) XR PELVIS AP EXAM: XR PELVIS AP CLINICAL HISTORY: fall. TECHNIQUE: 2D digital imaging was performed.One images were obtained. COMPARISON: No exams were available for comparison FINDINGS: BONES: No acute fracture is present. No bony destructive lesion is seen. Old fracture deformity invol ving the left pubic bone. JOINTS: No dislocation present. The hips are fairly well maintained. Mild degenerative changes are s een in the lower lumbar spine. The sacroiliac joints are intact. SOFT TISSUE: Vascular calcifications are present. IMPRESSION: No acute fracture or dislocation. DATA REPOSITORY: RADIATION DOSE DELIVERED:
--- NOTE | 2023-10-27 18:15 | DI.CT_ITS ---
Exam(s) CT HEAD WO EXAM: CT HEAD WO CLINICAL HISTORY: fall fatigue. TECHNIQUE: Imaging Protocol: Axial computed tomography images with coronal and sagittal reformatted images were created and reviewed COMPARISON: No exams were available for comparison FINDINGS: Ventricles and Extra axial spaces: Normal in size and morphology for the patient's age. Hemorrhage: None. Cerebral parenchyma: There are areas of decreased attenuation in the white matter consistent with chr onic microvascular ischemic disease. 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 No acute mass effect. Midline shift: None. Brainstem/Cerebellum: Normal. Calvarium: Normal. Visualized Paranasal sinuses/Mastoids: Clear. Soft Tissues: Unremarkable. IMPRESSION: No acute intracranial process. RADIATION DOSE DELIVERED: 798.05mGy.cm Total DLP DATA REPOSITORY: All CT scans at this facility are submitted to the National Radiology Data Registry (NRDR) Dose Index Registry (DIR) with the [employer] (ACR). RADIATION OPTIMIZATION: All CT scans at this facility use at least one of these dose optimization te chniques: automated exposure control; mA and/or kV adjustment per patient size (includes targeted exa ms where dose is matched to clinical indication); or iterative reconstruction.
--- NOTE | 2023-10-27 18:15 | DI.RAD_ITS ---
Exam(s) XR CHEST 2V PA LATERAL EXAM: XR CHEST 2V PA LATERAL CLINICAL HISTORY: fatigue TECHNIQUE: 2D digital imaging was performed of the chest. Two images were obtained. PA and lateral views were obtained. COMPARISON: CR XR CHEST 2V PA LATERAL from 03/11/2022 FINDINGS: MEDIASTINUM: Normal. HEART: Normal. PULMONARY VASCULATURE: Normal. LUNGS: Clear. PLEURAL SPACE: No pleural effusion or pneumothorax. BONE:Within normal limits for the patient's age. Stable mild compression deformity of a midthoracic spine vertebra. OTHER FINDINGS:Normal. IMPRESSION: No acute pulmonary findings. DATA REPOSITORY: RADIATION DOSE DELIVERED:
--- NOTE | 2023-10-27 18:29 | ED.GENADUL_ITS ---
Discharge Plan Disposition Patient Disposition: Home Condition: Improving Discharge Details Chief Complaint: GenMedical Clinical Impression: Dehydration, Hypomagnesemia Primary Care Provider: Siobhan Shetty ED Provider: Piero Pa Home Meds and New Rx's Prescriptions: No Action garlic 1,000 mg capsule 1,000 mg PO DAILY Discharge Instructions Instructions: Dehydration, Adult ED, Hypomagnesemia HPI General Date/Time Provider Initiated Documentation: 10/27/23 18:22 . HPI Narrative: 83-year-old male history of hypertension hyperlipidemia, presents with generalized fatigue fell while transferring to his wheelchair has had worsening fatigue over the last couple of days, decreased p.o. intake, history of dehydration. Denies loss of conscious denies chest pain or shortness of breath denies fevers chills or other systemic signs of illness Related Data Home Medications Medication Instructions Recorded Confirmed garlic 1,000 mg capsule 1,000 mg PO DAILY 10/27/23 10/27/23 Allergies Allergy/AdvReac Type Severity Reaction Status Date / Time Penicillins Allergy Skin Rash Unverified 10/27/23 18:06 General Stated Complaint: GenMedical ALEN: 3 Review of Systems Narrative: Review of Systems Constitutional: Fatigue, fall Eyes: negative ENT: negative Cardiovascular: negative Respiratory: negative Gastrointestinal: negative : negative Musculoskeletal: negative Skin: negative Neurologic: negative Psych: negative Exam Narrative Exam Narrative: Physical Examination General: alert, awake, cooperative, resting comfortably, no acute distress HEENT: normocephalic, atraumatic; PERRL, EOM intact, conjunctiva normal; no nasal discharge; moist mucous membranes, oral and pharyngeal mucosa normal, tolerating secretions Neck: supple, trachea midline; full ROM Chest: normal to inspection Respiratory: normal respiratory effort, speaking in full sentences, clear to auscultation, no wheezing, rales or rhonchi Cardiac: regular rate, regular rhythm, S1S2 intact, no murmurs rubs or gallops GI: abdomen soft, non-tender, non-distended; no palpable mass or hepatosplenomegaly Skin: no lesions, rashes or trauma appreciated Neuro: AAOx3, cranial nerves II through XII intact 5 5 strength upper extremities bilaterally, 4-5 strength bilateral lower extremities, no truncal ataxia, normal speech Extremities: No signs of trauma Psych: Appropriate mood and affect Course Vital Signs Vital signs: Vital Signs Temperature 37.9 C H 06/27/24 18:01 Pulse 99 H 10/27/23 18:01 Respiratory Rate 17 10/27/23 18:01 Blood Pressure 174/82 H 10/27/23 18:01 Pulse Oximetry 95 10/27/23 18:01 Temperature 37.0 C 10/27/23 18:06 Temperature Source Oral 10/27/23 18:06 Pulse 99 H 10/27/23 18:01 Respiratory Rate 22 10/27/23 18:07 Respiratory Effort Normal, Non-Labored 10/27/23 18:07 Respiratory Depth Normal 10/27/23 18:07 Respiratory Pattern Normal 10/27/23 18:07 Blood Pressure 174/82 H 10/27/23 18:01 Blood Pressure Position Sitting 10/27/23 18:01 Pulse Oximetry 95 10/27/23 18:01 Oxygen Delivery Method Room Air 10/27/23 18:01 Oxygen Flow Rate 0 10/27/23 18:01 Pain Level 0 10/27/23 18:01 Medical Decision Making 83-year-old male presents after mechanical fall while transferring to wheelchair, generalized fatigue over the past couple days decreased p.o. intake, hemodynamically stable moderately hypertensive in arrival, initial temperature febrile however repeat temperature afebrile, normoxic speaking full sentences does appear dry with dry oral mucosa and decreased skin turgor, consider component of dehydration versus electrolyte derangement muscles consider infectious process viral versus bacterial infection pneumonia versus UTI, low suspicion for ACS PE aortic pathology low suspicion for CVA but must also consider intracranial hemorrhage given recent fall will obtain CT head chest x- ray x-ray pelvis, basic labs urinalysis troponin TSH will provide fluids and p.o. challenge, disposition pending reassessment and results 20: 43 patient resting comfortably no acute distress. Feeling much better after fluids moving all extremities with full strength. Daughter here to take him home. Offered care management consultation for home resources such as home health PT and OT however patient feels comfortable and confident at home currently. Daughter checks in on him. Counseled to keep up with p.o. intake. Home instructions and return precautions given Quality:SDOH Health Related Social Needs: No Data to Display PFSH All Active Problems (Updated 10/27/23 @ 20:44 by Piero Pa MD) Hypomagnesemia (Acute) Dehydration (Acute) Varus deformity, not elsewhere classified, left knee (Acute) Unintentional weight loss (Acute) Lives alone (Acute) Grief (Chronic) (Acute) Executive function deficit (Acute) Cognitive decline (Chronic) Uses wheelchair (Acute) Weakness of both lower extremities (Chronic) Post-polio syndrome (Chronic) Gross hematuria (Acute) Frequent falls (Chronic) Crutches as ambulation aid (Chronic) using wheelchair more often now Unilateral primary osteoarthritis, left knee (Acute) Localized osteoarthritis of right knee (Acute) 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 (Chronic) monthly change with urology POLST (Physician Orders for Life-Sustaining Treatment) (Acute) Medical History Self-catheterizes urinary bladder DNR (do not resuscitate) DNI (do not intubate) Palliative care patient Gallbladder mass Left inguinal hernia Urinary retention BPH (benign prostatic hyperplasia) Depression High cholesterol Hypertension Family History Mother , age 83 from Alz Dis Dementia Alzheimer's dementia Father , age 83 from aspiration pneumonia following hip fx, SNF placement Heart disease Aspiration pneumonia Hip fracture Brother , age 58 Stomach cancer Daughter No problems noted. Daughter No problems noted. 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 Pets and animals: Yes Pets and animals: cat(s) Sexually active: No Current gender identity: male What is your relationship status?: How often do you talk on the phone with friends or family?: three or more times per week How often do you get together with friends or relatives?: three or more times per week How often do you attend adventism or nondenominational services?: 1-3 times per year Do you belong to any clubs or organized social groups?: no Panel score (0-1 are the most socially isolated patients): 1 What type of physical activity do you participate in: assisted ambulation Duration: < 15 minutes/day Frequency: daily Lilia/Latter Day: Alevism Special lilia needs: No Agree to transfusion: No Seatbelt use: always Water heater temp set <120 deg: Yes Working smoke detector in home: Yes Fire extinguisher in home: Yes Firearms in home: No Do you feel safe at home: Yes Do you feel safe in your relationship?: Yes Additional Social history: Jyoti at their apartment on hospice on 07/13/22. In 2018, they had moved to elderly housing in [place] from [place] where he raised his family and lived x 50 years. Daughter Susan lives near-by. Visits several times per week. He has lived a good life. Falls regularly. Advised caution. Unsafe living situation by himself. Working on looking at Assisted Living. Acutely grieving his .
[2023-10-27 18:32] LABS: Abs Immature Grans 0.02 10^3/uL (0.0-0.06); Absolute Basophil Count 0.04 10^3/uL (0.0-0.2); Absolute Lymphocyte Count 0.43 10^3/uL (1.2-3.4); Absolute Monocyte Count 0.81 10^3/uL (0.1-0.8); Absolute Neutrophil Count 3.98 10^3/uL (1.2-6.7); Basophils % 0.8 %; HCT 46.3 % (40.0-50.0); HGB 15.8 g/dL (13.5-17.5); Immature Grans % 0.4 %; Lymphocytes % 8.1 %; MCHC 34.1 % (32.0-36.0); MCV 88 fL (80-95); Monocytes % 15.3 %; Neutrophils % 75.4 %; Platelet Count 115 10^3/uL (130-400); RBC 5.27 10^6/uL (4.36-5.78); RDW 12.7 % (11.8-14.1); RDW-SD 40.8 fL; WBC 5.28 10^3/uL (4.4-10.8)
[2023-10-27 18:45] LABS: INR 1.2 (0.9-1.1); PTT Activated 31.6 sec (23.6-32.8); Prothrombin Time 11.9 sec (9.1-11.1)
--- NOTE | 2023-10-27 18:49 | DI.VRAD_ITS ---
PROCEDURE INFORMATION: Exam: CT Head Without Contrast Exam date and time: 10/27/2023 6:38 PM Age: 83 years old Clinical indication: Injury or trauma; Blunt trauma (contusions or hematomas); Injury details: Fall fatigue TECHNIQUE: Imaging protocol: Computed tomography of the head without contrast. COMPARISON: CT HEAD WO 03/11/2022 1:53 PM FINDINGS: Brain: Moderate volume loss No hemorrhage.Mild white matter disease. No mass effect. Cerebral ventricles: No ventriculomegaly. Paranasal sinuses: Visualized sinuses are unremarkable. No fluid levels. Mastoid air cells: Visualized mastoid air cells are well aerated. Bones: Unremarkable. No acute fracture. Soft tissues: Unremarkable. IMPRESSION: No acute intracranial hemorrhage Dictated and Authenticated by: Pato Osorio MD. Ordering:DAVID Harry MD
[2023-10-27 18:57] LABS: ALT 45 U/L (16-63); AST 41 U/L (15-37); Albumin 3.4 g/dL (3.4-5.0); Alkaline Phosphatase 87 U/L (46-116); Anion Gap 12.2 mmol/L (3-11); BUN 17 mg/dL (7-18); Bilirubin, Total 0.78 mg/dL (0.2-1.0); CO2 24.8 mmol/L (21.0-32.0); CREATININE 1.2 mg/dL (0.70-1.30); Calcium 8.8 mg/dL (8.5-10.1); Chloride 100 mmol/L (98-107); Creatine Kinase 140 U/L (39-308); Estimated GFR 59.26 (mL/min/1.73m2); Glucose 133 mg/dL (74-106); Magnesium 1.5 mg/dL (1.8-2.4); NT-proBNP 1395 pg/mL (<300); Potassium 3.6 mmol/L (3.5-5.1); Sodium 137 mmol/L (136-145); TSH (W/Ref FT4) 3.12 uIU/mL (0.36-3.74); Total Protein 7.3 g/dL (6.4-8.2); Troponin I < 50 ng/L (< or =60)
--- NOTE | 2023-10-27 18:58 | DI.VRAD_ITS ---
PROCEDURE INFORMATION: Exam: XR Chest Exam date and time: 10/27/2023 6:51 PM Age: 83 years old Clinical indication: Injury or trauma; Fall; Blunt trauma (contusions or hematomas); Additional info: Fall fatigue TECHNIQUE: Imaging protocol: Radiologic exam of the chest. Views: 2 views. COMPARISON: CR XR CHEST 2V PA LATERAL 03/11/2022 2:02 PM FINDINGS: Lungs: Unremarkable. No consolidation. Pleural spaces: Unremarkable. No pleural effusion. No pneumothorax. Heart/Mediastinum: Grossly stable. Bones/joints: Unremarkable. IMPRESSION: No acute findings. Dictated and Authenticated by: Pato Osorio MD. Ordering:DAVID Harry MD
--- NOTE | 2023-10-27 19:06 | DI.VRAD_ITS ---
PROCEDURE INFORMATION: Exam: XR Pelvis Exam date and time: 10/27/2023 6:46 PM Age: 83 years old Clinical indication: Injury or trauma; Fall; Blunt trauma (contusions or hematomas); Does not apply; Pelvic region; Additional info: Fall fatigue TECHNIQUE: Imaging protocol: Radiologic exam of the pelvis. Views: 1 or 2 view. COMPARISON: CT ABDOMEN PELVIS WO/W 02/02/2022 11:40 AM FINDINGS: Mildly limited due to positioning Bones/joints: Degenerative changes in the lower lumbar spine. Deformities of the left pubic rami may be chronic/positional No acute fracture. Soft tissues: Unremarkable. IMPRESSION: Question chronic deformities of the left pubic rami. No definite acute fracture detected Dictated and Authenticated by: Pato Osorio MD. Ordering:DAVID Harry MD
[2023-10-27] MEDS: Normal Saline 1,000 ML 1000 ML IV (19:11)
[2023-10-27] MEDS: MAGNESIUM SULFATE 1 GM/100 ML BAG IVINF (19:11)
[2023-10-27 20:25] LABS: Bilirubin Negative (Negative); Blood Large (Negative); Clarity Cloudy (Clear); Glucose Negative (Negative); Ketones Negative (Negative); Leukocyte Esterase Moderate (Negative); Nitrite Negative (Negative); Specific Gravity 1.025 (1.005-1.025); Urobilinogen 0.2 mg/dL (Up to 0.2)
[2023-10-27 20:32] LABS: Bacteria Many HPF (Negative); C & S Indicated? Yes; Casts Negative LPF (Negative); Crystals Negative HPF (Negative); Epithelial Cells Negative HPF (Negative); Mucus Moderate (Negative); RBC >50 HPF (0-2)
== END 2023-10-27 20:56 | disposition home or self-care (01) ==
PROVIDERS: Emergency Provider Emergency Medicine; PCP Nurse Practitioner Family
DX: E86.0 Dehydration (principal); E83.42 Hypomagnesemia; R53.83 Other fatigue; I10 Essential (primary) hypertension; E78.5 Hyperlipidemia, unspecified; Z66 Do not resuscitate; E78.00 Pure hypercholesterolemia, unspecified
CPT/HCPCS: 80053; 82550; 87077; 93005; 96361; 96365; 99285; 70450; 71046; 72170; 81003; 81015; 83735; 83880; 84443; 84484; 85025; 85610; 85730; 87086; 87186; 93010; 99284; J3475

== ENCOUNTER 2024-01-16 16:25 | Outpatient (REF) | payer MEDICARE, SELFPAY ==
[2024-01-16 19:09] LABS: Bilirubin Small (Negative); Blood Trace-intact (Negative); Clarity Cloudy (Clear); Glucose Negative (Negative); Ketones Trace mg/dL (Negative); Leukocyte Esterase Moderate (Negative); Nitrite Negative (Negative); Specific Gravity 1.025 (1.005-1.025); pH 5.5 (5-8)
[2024-01-16 19:27] LABS: Epithelial Cells Few HPF (Negative); RBC 0-2 HPF (0-2); WBC >50 HPF (0-5)
[2024-01-16 19:28] LABS: Bacteria Many HPF (Negative); C & S Indicated? Yes; Casts Negative LPF (Negative); Crystals Rare Calcium Oxalate HPF (Negative); Mucus Moderate (Negative)
== END 2024-01-16 16:26 | disposition home or self-care (01) ==
LOC: NCHCN 16:25
PROVIDERS: PCP Nurse Practitioner Family; Visit Provider Nurse Practitioner Family
DX: N39.0 Urinary tract infection, site not specified (principal); B96.29 Other Escherichia coli [E. coli] as the cause of diseases classified elsewhere
CPT/HCPCS: 87077; 81003; 81015; 87086; 87186

== ENCOUNTER 2024-03-26 14:57 | Outpatient (REF) | payer MEDICARE, SELFPAY ==
[2024-03-26 15:43] LABS: Abs Immature Grans 0.04 10^3/uL (0.0-0.06); Absolute Basophil Count 0.07 10^3/uL (0.0-0.2); Absolute Eosinophil Count 0.11 10^3/uL (0.0-0.7); Absolute Lymphocyte Count 1.08 10^3/uL (1.2-3.4); Absolute Monocyte Count 0.96 10^3/uL (0.1-0.8); Absolute Neutrophil Count 5.66 10^3/uL (1.2-6.7); Basophils % 0.9 %; Eosinophils % 1.4 %; HCT 51.2 % (40.0-50.0); HGB 16.6 g/dL (13.5-17.5); Immature Grans % 0.5 %; Lymphocytes % 13.6 %; MCH 28.7 pg (27.0-33.0); MCHC 32.4 % (32.0-36.0); MCV 88 fL (80-95); MPV 11.9 fL (8.0-11.0); Monocytes % 12.1 %; Neutrophils % 71.5 %; Platelet Count 253 10^3/uL (130-400); RBC 5.79 10^6/uL (4.36-5.78); RDW 13.8 % (11.8-14.1); RDW-SD 44.5 fL; WBC 7.92 10^3/uL (4.4-10.8)
== END 2024-03-26 14:58 | disposition home or self-care (01) ==
LOC: NCHCN 14:57
PROVIDERS: PCP Nurse Practitioner Family; Visit Provider Nurse Practitioner Family
DX: D69.6 Thrombocytopenia, unspecified (principal)
CPT/HCPCS: 83735; 85025

== ENCOUNTER 2024-04-16 11:45 | Outpatient (REF) | payer MEDICARE, SELFPAY ==
[2024-04-16 11:11] LABS: Bilirubin Negative (Negative); Blood Trace-intact (Negative); Clarity Cloudy (Clear); Glucose Negative (Negative); Ketones Negative (Negative); Leukocyte Esterase Moderate (Negative); Nitrite Negative (Negative); Specific Gravity >= 1.030 (1.005-1.025); Urobilinogen 0.2 mg/dL (Up to 0.2)
[2024-04-16 11:27] LABS: Bacteria Packed HPF (Negative); C & S Indicated? C&S Done As Ordered; Casts 3-5 Fine Granular LPF (Negative); Crystals Few Calcium Oxalate HPF (Negative); Epithelial Cells Few HPF (Negative); WBC >50 HPF (0-5)
== END 2024-04-16 11:46 | disposition home or self-care (01) ==
LOC: NCHCN 11:45
PROVIDERS: PCP Nurse Practitioner Family; Visit Provider Nurse Practitioner Family
DX: N39.0 Urinary tract infection, site not specified (principal)
CPT/HCPCS: 87077; 81003; 81015; 87086; 87186

== ENCOUNTER 2024-05-04 17:32 | Outpatient (REF) | payer MEDICARE, SELFPAY | END 2024-05-04 17:33 | disposition home or self-care (01) | LOC: NCHCN 17:32 | PROVIDERS: PCP Nurse Practitioner Family; Visit Provider Nurse Practitioner Family | DX: N39.0 Urinary tract infection, site not specified (principal); R82.89 Other abnormal findings on cytological and histological examination of urine; B96.29 Other Escherichia coli [E. coli] as the cause of diseases classified elsewhere | CPT/HCPCS: 87077; 87086; 87186 ==

== ENCOUNTER 2024-05-13 21:07 | Inpatient (IN) | payer MEDICARE, SELFPAY ==
[2024-05-13] VITALS (25 sets, daily range): BP systolic 143–162; BP diastolic 83–95; PULSE 83–97; RESP 15–23; TEMP 36.6; O2SAT 88–97
--- NOTE | 2024-05-13 21:15 | DI.CT_ITS ---
Exam(s) CT HEAD CERVICAL SPINE WO EXAM: CT HEAD CERVICAL SPINE WO CLINICAL HISTORY: Fall, head strike. TECHNIQUE: Imaging Protocol: Axial computed tomography images with coronal and sagittal reformatted images were created and reviewed COMPARISON: CT CT HEAD WO from 10/27/2023 FINDINGS: Head CT Ventricles and Extra axial spaces: Normal in size and morphology for the patient's age. Hemorrhage: None. Cerebral parenchyma: No evidence of mass or acute infarct. Old left basal ganglia lacunar infarct. Mild atrophy. Mild white matter changes of small vessel disease. Midline shift: None. Brainstem/Cerebellum: Normal. Calvarium: Normal. Visualized Paranasal sinuses/Mastoids: Clear. Soft tissues: Unremarkable. Cervical Spine CT BONES: Vertebral body heights are maintained. Alignment is normal. There is no evidence of acute frac ture. Degenerative disc changes and facet degenerative changes are seen . SOFT TISSUES: No paraspinal hematoma. The airway appears intact. IMPRESSION: Head CT: No acute abnormality. C-spine CT: Degenerative changes, no acute abnormality. RADIATION DOSE DELIVERED: 1,234.93mGy.cm Total DLP DATA REPOSITORY: All CT scans at this facility are submitted to the National Radiology Data Registry (NRDR) Dose Index Registry (DIR) with the [employer] (ACR). RADIATION OPTIMIZATION: All CT scans at this facility use at least one of these dose optimization te chniques: automated exposure control; mA and/or kV adjustment per patient size (includes targeted exa ms where dose is matched to clinical indication); or iterative reconstruction.
--- NOTE | 2024-05-13 21:25 | DI.CT_ITS ---
Exam(s) CT THORACIC LUMBAR SPINE WO CT CHEST/ABD/PEL W EXAM: CT CHEST/ABD/PEL W CLINICAL HISTORY: Large R. pueral fluid collection, hx gall bladder. TECHNIQUE: Imaging Protocol: Axial computed tomography images with coronal and sagittal reformatted images were created and reviewed. Computer aided detection (CAD) was utilized. CONTRAST MATERIAL: Intravenous: Omnipaque 350 Contrast volume:100 ml Oral: yes / no COMPARISON: CT CT ABDOMEN PELVIS WO/W from 02/02/2022 CR,XR XR CHEST 2V PA LATERAL from 10/27/[address] THORACIC LUMBAR SPINE WO from 05/13/2024 FINDINGS: CHEST: Tracheobronchial tree: Patent. Pulmonary parenchyma: Severe atelectasis of right lower and middle lobes. Right mild right upper lob e atelectasis. Thickening of the interlobular septa which could indicate lymphangitis spread of tumor . The left lung is clear. Pleura: No pneumothorax. Large loculated right pleural effusion. Abnormal not nodular thickening a long entire right pleura consistent with metastases. Mediastinum: Within normal limits. Aorta: Thoracic portion non-dilated. Pulmonary arteries: No visible emboli. Heart: Normal size. Coronary artery calcifications. No pericardial effusion. Bones: Multiple lucencies in the right ribs suspicious for metastatic disease. Sclerotic focus in T12 vertebral body. Other sclerotic foci in left lamina of T4 and left pedicle T7. Sclerotic lesion in l eft posterior 10th rib. Old bilateral rib fractures. Chronic appearing compression fractures noted i n the midthoracic spine. Soft tissues: Unremarkable. ABDOMEN and PELVIS: Liver: Normal density. No measurable mass. Gallbladder and biliary tract: Post cholecystectomy. No biliary dilatation. Pancreas: Somewhat atrophic. Normal density, no abnormal calcifications or inflammatory process. Spleen: Normal size. Calcified granulomas. Kidneys: Normal size, contour and axis. No radiodense stones. No obstructive uropathy. Bilateral si mple cysts. No suspicious masses seen. Adrenal glands: No masses seen. Aorta: Abdominal portion non-dilated. Atherosclerotic changes. Lymph nodes: Within normal limits. Soft tissues: Unremarkable. Bladder: Unremarkable 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. Mild wall thickening. High-density material in right posterior bladder could represent stones. Bowel: No obstruction or bowel wall thickening. Peritoneal cavity: No ascites. No focal collection. No mesenteric inflammatory response. No free ai r. Bones: Bones appear osteopenic. No compression fractures. Degenerative changes of the facet joints. Disc spaces are maintained. Stable appearance smoothly marginated lesion left sacrum. Scattered nons pecific sclerotic foci. Reproductive organs: Enlarged prostate with calcifications. IMPRESSION: Large loculated right pleural effusion causing significant atelectasis of the right lung. Marked nod ular pleural thickening consistent with metastatic disease. Lucencies in multiple right ribs, also c onsistent with metastases. Enlarged prostate. Hutchinson catheter within bladder. Mild bladder wall thickening. High-density mater ial consistent with stones. No evidence of acute fractures. RADIATION DOSE DELIVERED: 328.25mGy.cm Total DLP DATA REPOSITORY: All CT scans at this facility are submitted to the National Radiology Data Registry (NRDR) Dose Index Registry (DIR) with the [employer] (ACR). RADIATION OPTIMIZATION: All CT scans at this facility use at least one of these dose optimization te chniques: automated exposure control; mA and/or kV adjustment per patient size (includes targeted exa ms where dose is matched to clinical indication); or iterative reconstruction.
[2024-05-13 21:29] LABS: HCT 45.8 % (40.0-50.0); HGB 15.4 g/dL (13.5-17.5); MCH 29.1 pg (27.0-33.0); MCHC 33.6 % (32.0-36.0); MCV 87 fL (80-95); MPV 9.5 fL (8.0-11.0); Platelet Count 346 10^3/uL (130-400); RBC 5.29 10^6/uL (4.36-5.78); RDW 14.1 % (11.8-14.1); RDW-SD 44.9 fL; WBC 17.95 10^3/uL (4.4-10.8)
[2024-05-13 21:40] LABS: INR 1.2 (0.9-1.1)
[2024-05-13 21:44] LABS: Absolute Lymphocyte Count 0.54 10^3/uL (1.2-3.4); Absolute Monocyte Count 1.26 10^3/uL (0.1-0.8); Absolute Neutrophil Count 16.16 10^3/uL (1.2-6.7); Atypical Lymphocytes % 1 %; Diff Comment Manual Differential; RBC Morphology Normal
[2024-05-13 21:47] LABS: ALT 42 U/L (16-63); AST 40 U/L (15-37); Albumin 2.2 g/dL (3.4-5.0); Alkaline Phosphatase 300 U/L (46-116); Anion Gap 8.2 mmol/L (3-11); BUN 28 mg/dL (7-18); Bilirubin, Total 0.62 mg/dL (0.2-1.0); CO2 28.8 mmol/L (21.0-32.0); Calcium 9.5 mg/dL (8.5-10.1); Chloride 100 mmol/L (98-107); Glucose 148 mg/dL (74-106); Magnesium 1.9 mg/dL (1.8-2.4); Potassium 4.2 mmol/L (3.5-5.1); Sodium 137 mmol/L (136-145); Total Protein 7.3 g/dL (6.4-8.2)
[2024-05-13 21:59] LABS: Creatine Kinase 94 U/L (39-308)
--- NOTE | 2024-05-13 22:02 | ED.GENADUL_ITS ---
Discharge Plan Disposition Patient Disposition: Admit to [facility] Condition: Stable Discharge Details Clinical Impression: Acute UTI, POLST (Physician Orders for Life-Sustaining Treatment), 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, Unintentional weight loss, Post-polio syndrome, Fall, Pleural effusion on right, Pleural thickening Admit Date/Time: 05/13/24 23:19 Admit Provider: Alec Donald Attending Provider: Alec Donald Primary Care Provider: Siobhan Shetty ED Provider: Helena Villatoro General Mode of arrival: EMS . Date/Time Provider Initiated Documentation: 05/13/24 21:19 . Limitations to Documentation: altered mental status . Information obtained by: patient, family and old records reviewed . HPI Narrative: HPI: This is AN 84-year-old male patient with a past medical history significant for postpolio syndrome, 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 with a current UTI, treated with cefpodoxime, who is presenting for evaluation by EMS after a fall. The patient was on the toilet, and was attempting to get up when he lost his balance and fell. The patient states that he lost his balance because of his weak legs that is baseline due to his polio, states that he does not think he hit his head or lost consciousness. He does not take any blood thinning medications, pulled himself across the floor (which is cement) and was on the floor for about an hour and a half. His family found him on the floor, and history obtained from family is that the patient has not been in his normal state of health for the last several days. He has had a gradual decline since the of his about 18 months ago, with poor p.o. intake and weight loss, and was recently transitioned to palliative care. They state that they were unable to get a hold of the patient by phone, and found him on the floor of his home. He was initially complaining of some back pain due to being on the ground/pulling himself across the ground. They state that he has been taking his antibiotics for the last few days but they have not noted improvement in his mental status with this medication. They state that he has a history of confusion with UTIs in the past. Catheter was just changed on Tuesday. Exam: Gen: Awake and alert, in no apparent distress HEENT: Non-icteric sclera, PERRL, scalp atraumatic Neck: No cervical spine tenderness or step-offs. Lungs: No apparent respiratory distress, normal respiratory effort. Lung sounds clear CV: Appears well perfused, chest wall stable and without deformity, tenderness, or crepitus. Strong and symmetrical distal pulses Abdomen: Non-distended, soft, nontender MSK: Moves 4 extremities without apparent limitation in ROM, generalized weakness appreciated. The patient has no tenderness to palpation of the T- spine, does have palpation of the inferior L-spine, pelvis stable to AP compression. 4 extremities without external evidence of trauma Skin: Visualized skin without rashes, cyanosis. Neuro: No obvious focal deficits or facial asymmetry. Speaks in full, clear sentences. Awake and alert, poor historian Psych: Appropriate for situation. MDM: This is an 84-year-old male patient presenting for evaluation after a fall. My differential includes but is not limited to fracture, dislocation, intracranial hemorrhage, skull fracture, contusion. I see no evidence for open book pelvic fracture, or severe intrathoracic or abdominal injury. Additionally, I considered medical abnormalities including anemia, electrolyte derangement, dehydration, kidney injury, worsening of his infection including pyelonephritis, sepsis. We will obtain imaging to include CT of the head, C/T/L-spine, and will obtain laboratory studies to include CBC, CMP, magnesium, troponin, CK, and urinalysis. The patient is due for dose of antibiotics and given the concern for worsening I will provide him with a dose of intravenous ceftriaxone. ED Course: I laboratory review reveals a leukocytosis to 17 with no anemia or thrombocytopenia. Chemistry panel without significant electrolyte derangement but he does have a slight elevation in his BUN to 18. No evidence for liver abnormalities other than an elevated alk phos of 300, CK low at 94. UA still appears infectious with large leukocyte esterase and pyuria as well as hematuria, for which the patient was provided with the antibiotics as noted above. Previous cultures show cephalosporin sensitive E. coli. The patient CT head and C-spine was negative for acute injury and his c-collar was removed and his C-spine clinically cleared. His CT T and L-spine did have some concerning finding for subacute and chronic bony changes, concerning for malignant infiltration, and also revealed a large right-sided pleural effusion. For this reason I did proceed with CT chest, abdomen, and pelvis, which showed thickened nodularities of the right pleura, concerning for neoplasm, as well as a large loculated right pleural effusion, with associated compressive atelectasis of the right lung. The patient was graciously accepted to the hospitalist service for admission, and this finding was communicated to the hospitalist as the CT resulted after transfer had occurred. The patient is already on palliative care, and is finding will be discussed with the patient and his family in the morning, all further care per the hospitalist team. Helena Villatoro MD Related Data Home Medications ?Medication ?Instructions ?Recorded ?Confirmed garlic 1,000 mg capsule 1,000 mg PO DAILY 10/27/23 05/14/24 Allergies Allergy/AdvReac Type Severity Reaction Status Date / Time Penicillins Allergy Skin Rash Unverified 05/13/24 21:14 General Stated Complaint: Fall/Non TraumaCriteria ALEN: 2 Course Vital Signs Vital signs: Vital Signs Temperature 36.6 C 05/13/24 21:08 Pulse 97 H 05/13/24 21:08 Respiratory Rate 16 05/13/24 21:08 Blood Pressure 158/93 H 05/13/24 21:08 Pulse Oximetry 96 05/13/24 21:08 Temperature 36.6 C 05/13/24 21:08 Pulse 97 H 05/13/24 21:08 Respiratory Rate 16 05/13/24 21:08 Blood Pressure 158/93 H 05/13/24 21:08 Pulse Oximetry 96 05/13/24 21:08 Pain Level 0 05/13/24 21:08 Lab/Test Results Lab/Test Results: Laboratory Tests Range/Units 05/13/24 21:16 WBC (4.4-10.8) 10^3/uL 17.95 H RBC (4.36-5.78) 10^6/uL 5.29 Hgb (13.5-17.5) g/dL 15.4 Hct (40.0-50.0) % 45.8 MCV (80-95) fL 87 MCH (27.0-33.0) pg 29.1 MCHC (32.0-36.0) % 33.6 RDW (11.8-14.1) % 14.1 Plt Count (130-400) 10^3/uL 346 MPV (8.0-11.0) fL 9.5 Immature Gran % % 0.0 Neutrophils % % 90.0 Lymphocytes % % 2.0 Atypical Lymphs % % 1 Monocytes % % 7.0 Eosinophils % % 0.0 Basophils % % 0.0 Nucleated RBC % (0.0-0.3) % 0.0 Absolute Neutrophils (1.2-6.7) 10^3/uL 16.16 H Absolute Lymphocytes (1.2-3.4) 10^3/uL 0.54 L Absolute Monocytes (0.1-0.8) 10^3/uL 1.26 H Absolute Eosinophils (0.0-0.7) 10^3/uL 0.00 Absolute Basophils (0.0-0.2) 10^3/uL 0.00 RBC Morphology Normal PT (9.1-11.1) sec 12.0 H INR (0.9-1.1) 1.2 H Sodium (136-145) mmol/L 137 Potassium (3.5-5.1) mmol/L 4.2 Chloride (98-107) mmol/L 100 Carbon Dioxide (21.0-32.0) mmol/L 28.8 Anion Gap (3-11) mmol/L 8.2 BUN (7-18) mg/dL 28 H Creatinine (0.70-1.30) mg/dL 1.0 Est GFR (CKD-EPI 2020) (mL/min/1.73m2) 73.30 Glucose (74-106) mg/dL 148 H Calcium (8.5-10.1) mg/dL 9.5 Magnesium (1.8-2.4) mg/dL 1.9 Total Bilirubin (0.2-1.0) mg/dL 0.62 AST (15-37) U/L 40 H ALT (16-63) U/L 42 Alkaline Phosphatase (46-116) U/L 300 H Total Protein (6.4-8.2) g/dL 7.3 Albumin (3.4-5.0) g/dL 2.2 L Medical Decision Making Quality:SDOH Health Related Social Needs: No Data to Display PFSH All Active Problems (Updated 05/14/24 @ 00:55 by Helena Villatoro MD) Pleural thickening (Acute) Pleural effusion on right (Acute) Fall (Acute) Acute UTI (Acute) UTI (urinary tract infection) (Acute) Varus deformity, not elsewhere classified, left knee (Acute) Unintentional weight loss (Acute) Lives alone (Acute) Grief (Chronic) (Acute) Executive function deficit (Acute) Cognitive decline (Chronic) Uses wheelchair (Acute) Weakness of both lower extremities (Chronic) Post-polio syndrome (Chronic) Gross hematuria (Acute) Frequent falls (Chronic) Crutches as ambulation aid (Chronic) using wheelchair more often now Unilateral primary osteoarthritis, left knee (Acute) Localized osteoarthritis of right knee (Acute) 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 (Chronic) monthly change with urology POLST (Physician Orders for Life-Sustaining Treatment) (Acute) Medical History Self-catheterizes urinary bladder DNR (do not resuscitate) DNI (do not intubate) Palliative care patient Gallbladder mass Left inguinal hernia Urinary retention BPH (benign prostatic hyperplasia) Depression High cholesterol Hypertension Family History Mother , age 83 from Alz Dis Dementia Alzheimer's dementia Father , age 83 from aspiration pneumonia following hip fx, SNF placement Heart disease Aspiration pneumonia Hip fracture Brother , age 58 Stomach cancer Daughter No problems noted. Daughter No problems noted. 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 Pets and animals: Yes Pets and animals: cat(s) Sexually active: No Current gender identity: male What is your relationship status?: How often do you talk on the phone with friends or family?: three or more times per week How often do you get together with friends or relatives?: three or more times per week How often do you attend nondenominational or islam services?: 1-3 times per year Do you belong to any clubs or organized social groups?: no Panel score (0-1 are the most socially isolated patients): 1 What type of physical activity do you participate in: assisted ambulation Duration: < 15 minutes/day Frequency: daily Lilia/Mormonism: Mormon Special lilia needs: No Agree to transfusion: No Seatbelt use: always Water heater temp set <120 deg: Yes Working smoke detector in home: Yes Fire extinguisher in home: Yes Firearms in home: No Do you feel safe at home: Yes Do you feel safe in your relationship?: Yes Additional Social history: Jyoti at their apartment on hospice on 07/13/22. In 2018, they had moved to elderly housing in [place] from [place] where he raised his family and lived x 50 years. Daughter Susan lives near-by. Visits several times per week. He has lived a good life. Falls regularly. Advised caution. Unsafe living situation by himself. Working on looking at Assisted Living. Acutely grieving his .
[2024-05-13] MEDS: cefTRIAXone 1 GM/50 ML BAG IVPB (22:28)
--- NOTE | 2024-05-13 22:29 | DI.VRAD_ITS ---
PROCEDURE INFORMATION: Exam: CT Head Without Contrast Exam date and time: 05/13/2024 9:49 PM Age: 84 years old Clinical indication: Injury or trauma; Blunt trauma (contusions or hematomas); Consciousness not specified; Injury date: 05/12/24; Injury details: Fall, head strike TECHNIQUE: Imaging protocol: Computed tomography of the head without contrast. Radiation optimization: All CT scans at this facility use at least one of these dose optimization techniques: automated exposure control; mA and/or kV adjustment per patient size (includes targeted exams where dose is matched to clinical indication); or iterative reconstruction. COMPARISON: CT HEAD WO 10/27/2023 6:38 PM FINDINGS: Brain: Chronic left basal ganglia lacunar infarction. No hemorrhage. Mild white matter disease. No mass effect. Cerebral ventricles: No ventriculomegaly. Paranasal sinuses: Visualized sinuses are unremarkable. No fluid levels. Mastoid air cells: Visualized mastoid air cells are well aerated. Bones: Unremarkable. No acute fracture. Soft tissues: Unremarkable. IMPRESSION: No acute intracranial hemorrhage PROCEDURE INFORMATION: Exam: CT Cervical Spine Without Contrast Exam date and time: 05/13/2024 9:49 PM Age: 84 years old Clinical indication: Injury or trauma; Blunt trauma (contusions or hematomas); Consciousness not specified; Injury date: 05/12/24; Injury details: Fall, head strike TECHNIQUE: Imaging protocol: Computed tomography of the cervical spine without contrast. Radiation optimization: All CT scans at this facility use at least one of these dose optimization techniques: automated exposure control; mA and/or kV adjustment per patient size (includes targeted exams where dose is matched to clinical indication); or iterative reconstruction. COMPARISON: CT HEAD CERVICAL SPINE WO 02/02/2019 10:45 AM FINDINGS: Bones: No acute fracture. Loss of cervical lordosis is presumably on a degenerative basis. Central canal and foraminal stenosis most pronounced at C4-C5 Lungs: Question right pleural thickening versus pleural fluid Soft tissues: Unremarkable. IMPRESSION: No acute cervical fracture Question right pleural fluid versus apical pleural thickening Dictated and Authenticated by: Pato Osorio MD. Ordering:MITRA Rebolledo MD
[2024-05-13 22:36] LABS: Bilirubin Small (Negative); Blood Large (Negative); Clarity Turbid (Clear); Glucose 100 mg/dL (Negative); Ketones Trace mg/dL (Negative); Leukocyte Esterase Large (Negative); Nitrite Negative (Negative); Specific Gravity >= 1.030 (1.005-1.025)
[2024-05-13 22:45] LABS: C & S Indicated? Yes; WBC >50 HPF (0-5)
--- NOTE | 2024-05-13 23:03 | W.PM.HP.N ---
Date of service: 05/13/24 Time of Service: 23:03 Assessment and Plan Assessment and plan (1) UTI (urinary tract infection): Status: Acute Assessment and plan: UTI, manifesting as weakness and confusion. Will try to locate earlier culture results but will continue Rocephin empirically for now, along with gentle hydration. Family has been moving toward possible palliative care and will consult service, along with PT. The lung findings are being further evaluated at present with dedicated chest scan; will work up further thereafter as indicated. This appears to be incidental at present. Patient remains DNR History of Present Illness History of Present Illness Chief Complaint: weakness Narrative: 84 male with h/o post-polio syndrome, depression, intermittent straight cath, frequent UTI, has had slow decline over past year or so, then started on unknown antibiotic last week for UTI. Patient states he went to bathroom today, slipped off toilet (no syncope, just slipped), no head trauma and no LOC. However family note that he has been weaker and more confused over past few days, similar to prior UTI. In ER findings of note for white count 17, urine with >50 WBC/hpf and negative head CT and C-spine (incidental finding of right pleural thickening vs effusion, partially imaged on spine scan). Patient given Rocephin 1 gram. I was asked to evaluate for admission. Patient denies pain, just feels weak. Review of Systems Narrative: per HPI PFSH All Active Problems (Updated 05/13/24 @ 23:15 by Alec Donald MD) UTI (urinary tract infection) (Acute) Varus deformity, not elsewhere classified, left knee (Acute) Unintentional weight loss (Acute) Lives alone (Acute) Grief (Chronic) (Acute) Executive function deficit (Acute) Cognitive decline (Chronic) Uses wheelchair (Acute) Weakness of both lower extremities (Chronic) Post-polio syndrome (Chronic) Gross hematuria (Acute) Frequent falls (Chronic) Crutches as ambulation aid (Chronic) using wheelchair more often now Unilateral primary osteoarthritis, left knee (Acute) Localized osteoarthritis of right knee (Acute) 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 (Chronic) monthly change with urology POLST (Physician Orders for Life-Sustaining Treatment) (Acute) Medical History Self-catheterizes urinary bladder DNR (do not resuscitate) DNI (do not intubate) Palliative care patient Gallbladder mass Left inguinal hernia Urinary retention BPH (benign prostatic hyperplasia) Depression High cholesterol Hypertension Family History Mother , age 83 from Alz Dis Dementia Alzheimer's dementia Father , age 83 from aspiration pneumonia following hip fx, SNF placement Heart disease Aspiration pneumonia Hip fracture Brother , age 58 Stomach cancer Daughter No problems noted. Daughter No problems noted. 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 Pets and animals: Yes Pets and animals: cat(s) Sexually active: No Current gender identity: male What is your relationship status?: How often do you talk on the phone with friends or family?: three or more times per week How often do you get together with friends or relatives?: three or more times per week How often do you attend yarsani or islam services?: 1-3 times per year Do you belong to any clubs or organized social groups?: no Panel score (0-1 are the most socially isolated patients): 1 What type of physical activity do you participate in: assisted ambulation Duration: < 15 minutes/day Frequency: daily Lilia/Muslim: Sabianist Special lilia needs: No Agree to transfusion: No Seatbelt use: always Water heater temp set <120 deg: Yes Working smoke detector in home: Yes Fire extinguisher in home: Yes Firearms in home: No Do you feel safe at home: Yes Do you feel safe in your relationship?: Yes Additional Social history: Jyoti at their apartment on hospice on 07/13/22. In 2018, they had moved to elderly housing in [place] from [place] where he raised his family and lived x 50 years. Daughter Susan lives near-by. Visits several times per week. He has lived a good life. Falls regularly. Advised caution. Unsafe living situation by himself. Working on looking at Assisted Living. Acutely grieving his . Meds Allergies and Home Medications Allergies Allergy/AdvReac Type Severity Reaction Status Date / Time Penicillins Allergy Skin Rash Unverified 05/13/24 21:14 Home Medications ?Medication ?Instructions ?Recorded ?Confirmed ?Type garlic 1,000 mg capsule 1,000 mg PO DAILY 10/27/23 10/27/23 History Exam Narrative Exam Narrative: 152/90, 89, 36.6, 22, 96% RA. HEENT dry oral mucosa; neck supple; lungs clear; heart RRR; abdomen soft and NT; : Hutchinson has been placed; extremities w/o edema; neuro: seems somewhat confused but able to keep thread of simple conversation; moves all 4s, 4/5 LEs Results Labs 05/13/24 21:16 05/13/24 21:16 Labs: Laboratory Results - last 24 hr 05/13/24 05/13/24 21:16 22:30 WBC 17.95 H RBC 5.29 Hgb 15.4 Hct 45.8 MCV 87 MCH 29.1 MCHC 33.6 RDW 14.1 Plt Count 346 MPV 9.5 Immature Gran % 0.0 Neutrophils % 90.0 Lymphocytes % 2.0 Atypical Lymphs % 1 Monocytes % 7.0 Eosinophils % 0.0 Basophils % 0.0 Nucleated RBC % 0.0 Absolute Neutrophils 16.16 H Absolute Lymphocytes 0.54 L Absolute Monocytes 1.26 H Absolute Eosinophils 0.00 Absolute Basophils 0.00 RBC Morphology Normal PT 12.0 H INR 1.2 H Sodium 137 Potassium 4.2 Chloride 100 Carbon Dioxide 28.8 Anion Gap 8.2 BUN 28 H Creatinine 1.0 Est GFR (CKD-EPI 2020) 73.30 Glucose 148 H Calcium 9.5 Magnesium 1.9 Total Bilirubin 0.62 AST 40 H ALT 42 Alkaline Phosphatase 300 H Creatine Kinase 94 Total Protein 7.3 Albumin 2.2 L Urine Color Yellow Urine Clarity Turbid Urine pH 6.0 Ur Specific [place] >= 1.030 H Urine Protein >=300 H Urine Ketones Trace H Urine Blood Large H Urine Nitrite Negative Urine Bilirubin Small H Urine Urobilinogen 1.0 H Ur Leukocyte Esterase Large H Urine RBC Not Applicable Urine WBC >50 H Ur Epithelial Cells Not Applicable Urine Crystals Not Applicable Urine Bacteria Not Applicable Urine Mucus Not Applicable Ur Culture Indicated? Yes Urine Glucose 100 H Last Vital Signs Temp 36.6 C 05/13/24 21:08 Pulse 89 05/13/24 22:30 Resp 22 05/13/24 22:50 BP 152/90 H 05/13/24 22:30 Pulse Ox 96 05/13/24 22:50 Time Spent Time spent with Patient: 55-74 minutes Time was spent: preparing to see the patient(eg.review tests), obtaining and/or reviewing separately otained hiistory, ordering medications,tests, procedures, referring, communicating with other health care team coordinator scheduler and indepentently interpreting results
[2024-05-13] MEDS: Omnipaque 350 MG/ML 100 ML BTL IJ (23:30)
[2024-05-13] MEDS: Normal Saline - Diluent 50 ML VIAL IJ (23:31)
[2024-05-13] MEDS: Normal Saline Flush 10 ML SYR IVP (23:31)
--- NOTE | 2024-05-13 23:44 | DI.VRAD_ITS ---
Addendum created by Miriam Nguyen MD on 05/13/2024 11:57:44 PM EST: THIS REPORT CONTAINS FINDINGS THAT MAY BE CRITICAL TO PATIENT CARE. The findings were verbally communicated via telephone conference with Helena Villatoro at 11:45 PM EST on 05/13/2024. The findings were acknowledged and understood. A CT scan of the chest abdomen and pelvis has been ordered. Correlation with those findings suggested. 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 TECHNIQUE: Imaging protocol: Computed tomography of the thoracic spine without contrast. Radiation optimization: All CT scans at this facility use at least one of these dose optimization techniques: automated exposure control; mA and/or kV adjustment per patient size (includes targeted exams where dose is matched to clinical indication); or iterative reconstruction. COMPARISON: No priors available for comparison. FINDINGS: Bones/joints: No definite acute appearing fracture is identified. There is diffuse loss in vertebral body height of T7 through T11 which may be chronic. However, in the absence of prior imaging for comparison, if there is clinical concern that these could represent acute abnormalities, MRI is recommended. Skeletal degenerative changes and multilevel osteophytosis is seen. There is a healed fracture of the right 11th posterior rib medially. A 6 mm sclerotic focus is noted within the T12 vertebral body, left posterior 10th rib, and left T7 pedicle, and left anterior 1st rib. There is a heterogeneous sclerotic and lucent abnormality in the T4 left lamina. There is cortical destruction involving the right posterior 9th rib. Disease involvement in these regions is not excluded. There is multilevel disc space narrowing. The discs, themselves, are not well assessed. T1-T2: No significant disc bulge or herniation. T2-T3: No significant disc bulge or herniation. T3-T4: No significant disc bulge or herniation. T4-T5: No significant disc bulge or herniation. T5-T6: No significant disc bulge or herniation. T6-T7: No significant disc bulge or herniation. T7-T8: No significant disc bulge or herniation. T8-T9: No significant disc bulge or herniation. T9-T10: No significant disc bulge or herniation. T10-T11: No significant disc bulge or herniation. T11-T12: No significant disc bulge or herniation. T12-L1: No significant disc bulge or herniation. Other: There is abnormal soft tissue density anterior to the spine, worrisome for lymphadenopathy. Blood products in the setting of trauma are not excluded. There is right-sided pleural thickening for which disease involvement is not excluded. A large fluid density structure overlies the right hemithorax, incompletely imaged. This could represent a loculated pleural effusion/empyema or alternatively something arising from the abdomen which severely elevates the right hemidiaphragm. Adjacent atelectasis versus infection is seen. A dedicated CT scan of the chest, abdomen, and pelvis with contrast is recommended for further evaluation. There are vascular calcifications. There are prominent septal lines in the right lung for which lymphangitic spread is not excluded. IMPRESSION: 1. No definite acute appearing fracture is identified. There is diffuse loss in vertebral body height of T7 through T11 which may be chronic. However, in the absence of prior imaging for comparison, if there is clinical concern that these could represent acute abnormalities, MRI is recommended. 2. Bony abnormalities as described above, worrisome for disease involvement. Comparison with prior imaging studies, if available, would be beneficial. If indicated, a bone scan or MRI could be obtained. 3. There is abnormal soft tissue density anterior to the spine, worrisome for lymphadenopathy. Blood products in the setting of trauma are not excluded. There is right-sided pleural thickening for which disease involvement is not excluded. A large fluid density structure overlies the right hemithorax, incompletely imaged. This could represent a loculated pleural effusion/empyema or alternatively something arising from the abdomen which severely elevates the right hemidiaphragm. Adjacent atelectasis versus infection is seen. A dedicated CT scan of the chest, abdomen, and pelvis with contrast is recommended for further evaluation. 4. There are prominent septal lines in the right lung for which lymphangitic spread is not excluded. Other findings/details as above. PROCEDURE INFORMATION: Exam: CT Lumbar Spine Without Contrast Exam date and time: 05/13/2024 10:05 PM Age: 84 years old Clinical indication: Injury or trauma; Blunt trauma (contusions or hematomas); Injury date: 05/12/24; Injury details: Fall, low back pain TECHNIQUE: Imaging protocol: Computed tomography of the lumbar spine without contrast. Radiation optimization: All CT scans at this facility use at least one of these dose optimization techniques: automated exposure control; mA and/or kV adjustment per patient size (includes targeted exams where dose is matched to clinical indication); or iterative reconstruction. COMPARISON: CT ABDOMEN PELVIS WO/W 02/02/2022 11:40 AM FINDINGS: Bones/joints: Skeletal degenerative changes are seen including facet arthrosis and anterior osteophytosis. Osteopenia is seen. Lordosis is maintained. There is no evidence of listhesis. There is no loss in vertebral body height. Gas is noted in the soft tissues at the level of the L4 posterior elements. This may be related to vacuum phenomenon but should be correlated with any concern for infection. A rounded lucency in the left sacrum which has rim sclerosis is grossly similar to prior exam. A small sclerotic focus in the sacrum, series 5, image 30, is also similar to prior exam. Bilateral sclerotic appearance to the L4 and L5 pedicles is again seen. The disc spaces are maintained. The discs, themselves, are not well assessed. L1-L2: No significant disc bulge or herniation. L2-L3: Disc bulge. L3-L4: Disc bulge. L4-L5: Disc bulge. L5-S1: Disc bulge. Soft tissues: There are vascular calcifications. A indeterminate 1.4 cm hyperdense left renal lesion is unchanged from 2021. There is some asymmetric prominence to the left lateral rectus musculature (series 20, image 51) which should be correlated with any concern for trauma or infection. IMPRESSION: 1. No loss in vertebral body height or listhesis is appreciated. 2. Disc bulges at multiple levels. If the patient is symptomatic or if symptoms remain concerning, MRI is recommended. 3. Gas noted in the soft tissues at the level of the L4 posterior elements. This may be related to vacuum phenomenon but should be correlated with any concern for infection. 4. There is some asymmetric prominence to the left lateral rectus musculature (series 20, image 51) which should be correlated with any concern for trauma or infection. 5. No significant change in indeterminate left renal lesion. 6. Other findings/details as above. A CT scan of the chest abdomen and pelvis with contrast is recommended for findings described in the thoracic spine dictation. Dictated and Authenticated by: Miriam Nguyen MD. Ordering:MITRA Rebolledo MD
[2024-05-14] VITALS (8 sets, daily range): BP systolic 123–164; BP diastolic 66–90; PULSE 86–101; RESP 18–20; TEMP 36.1–37.1; O2SAT 95–99
--- NOTE | 2024-05-14 00:32 | W.PC.ACHO ---
Registration Status: Primary Language: Preferred Language: ED Information & Data Chief Complaint Fall/Non TraumaCriteria 05/13/24 22:02 Triage Note pt fell off toilet at home, 05/13/24 21:08 no LOC. low back pain, right knee pain. daughter reported he is :a little off . arrived in c-collar. pt laid on floor for ~ 1 hr. pt reports increased weakness which contributed to the fall and inability to get back up. pt does have hx of polio and reports he is off balance because of this Medical / Surgical History (Last Reviewed 05/13/24 @ 23:11 by Alec Donald MD) Self-catheterizes urinary bladder DNR (do not resuscitate) DNI (do not intubate) Palliative care patient Gallbladder mass Left inguinal hernia Urinary retention BPH (benign prostatic hyperplasia) Depression High cholesterol Hypertension Most Recent Vital Signs Temperature 36.6 C 05/13/24 21:08 Pulse 87 05/14/24 00:00 Pulse 90 05/14/24 00:10 Respiratory Rate 20 05/14/24 00:10 Blood Pressure 164/80 H 05/14/24 00:00 Blood Pressure Mean 110 05/14/24 00:00 Pulse Oximetry 95 05/14/24 00:10 Pain Level 0 05/13/24 21:08 Allergies Penicillins Allergy (Unverified 05/13/24 21:14) Skin Rash Active Medications Generic Name Dose Route Start Last Admin Trade Name Freq PRN Reason Stop Dose Admin Ceftriaxone Sodium 1,000 mg/ 50 mls @ 100 mls/hr 05/13/24 23:30 05/13/24 23:39 Sodium Chloride IVPB Not Given Q24H [place] Iohexol 100 ml 05/13/24 23:30 05/13/24 23:30 Omnipaque 350 Mg/Ml 100 Ml Btl IJ 06/12/24 23:59 75 ml DIRECTED [place] Administration Sodium Chloride 50 ml 05/13/24 23:45 05/13/24 23:31 Normal Saline - Diluent 50 Ml Vial IJ 50 ml .FOR DI USE [place] Administration Sodium Chloride 0 ml 05/13/24 23:31 05/13/24 23:31 Normal Saline Flush 10 Ml Syr IVP 10 ml PRN PRN Administration IV IV Catheter Type [Right Peripheral IV Antecubital] IV Catheter Gauge [Right 18 Antecubital] Diet Orders Category Date Time Status Regular/Normal [DIET] Nutrition 05/14/24 Breakfast Active Diagnostics 05/13/24 05/13/24 Range/Units 22:30 21:16 WBC 17.95 H (4.4-10.8) 10^3/uL RBC 5.29 (4.36-5.78) 10^6/uL Hgb 15.4 (13.5-17.5) g/dL Hct 45.8 (40.0-50.0) % MCV 87 (80-95) fL MCH 29.1 (27.0-33.0) pg MCHC 33.6 (32.0-36.0) % RDW 14.1 (11.8-14.1) % Plt Count 346 (130-400) 10^3/uL MPV 9.5 (8.0-11.0) fL Immature Gran % 0.0 % Neutrophils % 90.0 % Lymphocytes % 2.0 % Atypical Lymphs % 1 % Monocytes % 7.0 % Eosinophils % 0.0 % Basophils % 0.0 % Nucleated RBC % 0.0 (0.0-0.3) % Absolute Neutrophils 16.16 H (1.2-6.7) 10^3/uL Absolute Lymphocytes 0.54 L (1.2-3.4) 10^3/uL Absolute Monocytes 1.26 H (0.1-0.8) 10^3/uL Absolute Eosinophils 0.00 (0.0-0.7) 10^3/uL Absolute Basophils 0.00 (0.0-0.2) 10^3/uL RBC Morphology Normal PT 12.0 H (9.1-11.1) sec INR 1.2 H (0.9-1.1) Sodium 137 (136-145) mmol/L Potassium 4.2 (3.5-5.1) mmol/L Chloride 100 (98-107) mmol/L Carbon Dioxide 28.8 (21.0-32.0) mmol/L Anion Gap 8.2 (3-11) mmol/L BUN 28 H (7-18) mg/dL Creatinine 1.0 (0.70-1.30) mg/dL Est GFR (CKD-EPI 2020) 73.30 (mL/min/1.73m2) Glucose 148 H (74-106) mg/dL Calcium 9.5 (8.5-10.1) mg/dL Magnesium 1.9 (1.8-2.4) mg/dL Total Bilirubin 0.62 (0.2-1.0) mg/dL AST 40 H (15-37) U/L ALT 42 (16-63) U/L Alkaline Phosphatase 300 H (46-116) U/L Creatine Kinase 94 (39-308) U/L Total Protein 7.3 (6.4-8.2) g/dL Albumin 2.2 L (3.4-5.0) g/dL Urine Color Yellow (Yellow) Urine Clarity Turbid (Clear) Urine pH 6.0 (5-8) Ur Specific [place] >= 1.030 H (1.005-1.025) Urine Protein >=300 H (Neg-Trace) mg/dL Urine Ketones Trace H (Negative) mg/dL Urine Blood Large H (Negative) Urine Nitrite Negative (Negative) Urine Bilirubin Small H (Negative) Urine Urobilinogen 1.0 H (Up to 0.2) mg/dL Ur Leukocyte Esterase Large H (Negative) Urine RBC Not Applicable Urine WBC >50 H (0-5) HPF Ur Epithelial Cells Not Applicable Urine Crystals Not Applicable Urine Bacteria Not Applicable Urine Mucus Not Applicable Ur Culture Indicated? Yes Urine Glucose 100 H (Negative) mg/dL 05/13/24 22:30 Urine Culture - Pending Urine - Reflex from Ua Intake and Output - 24 Hour Total 05/13/24 20:59 thru 05/13/24 22:58 Intake Total 50 Balance 50 Weight 67.132 kg Intake: IV 50 Falls Risk Assessment History of Falls Previous History 05/13/24 21:18 Contributing Factors Confusion,Impairments 05/13/24 21:18 Ambulatory Aids Independent 05/13/24 21:18 Tubes/Lines W/no contributing factors 05/13/24 21:18 Gait Evaluation W/any additional score 05/13/24 21:18 Cognition Cognitive impairment 05/13/24 21:18 Fall Total Score 66 05/13/24 21:18 Level of Risk High Risk 05/13/24 21:18 Problems (Last Reviewed 05/13/24 @ 23:11 by Alec Donald MD) UTI (urinary tract infection) (Acute) v v v v v v v v v Sending and/or Receiving Nurses: Please use comment section below to note any information pertinent to the patient hand-off not included above. Information / Comments: Report received from: Alec VINCENT at [id number]
--- NOTE | 2024-05-14 00:51 | DI.VRAD_ITS ---
PROCEDURE INFORMATION: Exam: CT Chest With Contrast; Diagnostic Exam date and time: 05/13/2024 11:31 PM Age: 84 years old Clinical indication: Other: HX gallbladder mass; Other: R plueral fluid collection; Prior surgery; Surgery date: 6+ months; Surgery type: Hernia repair as child; Patient HX: Large R. Pueral fluid collection, HX gall bladder TECHNIQUE: Imaging protocol: Diagnostic computed tomography of the chest with contrast. Radiation optimization: All CT scans at this facility use at least one of these dose optimization techniques: automated exposure control; mA and/or kV adjustment per patient size (includes targeted exams where dose is matched to clinical indication); or iterative reconstruction. Contrast material: OMNIPAQUE 350; Contrast volume: 75 ml; Contrast route: INTRAVENOUS (IV); COMPARISON: CT CHEST W 05/13/2024 11:17 PM FINDINGS: Lungs: Abnormally thickened and nodular appearance of the right pleura, worse in the basilar chest and medial pleural surfaces, characteristic for neoplastic infiltration. Nodular invasion of the anterior and posterior mediastinum as well as anterior right cardiophrenic space present. Near complete atelectasis right lower lobe and large right middle lobe atelectasis adjacent to the loculated pleural effusion and pleural thickening. Similar, milder severity subpleural atelectasis lateral right upper lobe. Spread of neoplasm into the lung parenchyma cannot be definitively excluded. Left lung is clear. Pleural spaces: Large, loculated right pleural effusion. Heart: Heart is normal in size. Coronary arteries: Mild coronary artery calcifications are visualized. Lymph nodes: Unremarkable. No enlarged lymph nodes. Vasculature: Unremarkable. No aortic aneurysm. Bones/joints: Unremarkable. No acute fracture. Soft tissues: Unremarkable. IMPRESSION: 1. Abnormally thickened and nodular appearance of the right pleura, worse in the basilar chest and medial pleural surfaces, characteristic for neoplastic infiltration. Nodular invasion of the anterior and posterior mediastinum as well as anterior right cardiophrenic space present. 2. Large, loculated right pleural effusion. 3. Near complete atelectasis right lower lobe and large right middle lobe atelectasis adjacent to the loculated pleural effusion pleural thickening. Similar, milder severity subpleural atelectasis lateral right upper lobe. Spread of neoplasm into the lung parenchyma cannot be definitively excluded. Superimposed pneumonia less likely. PROCEDURE INFORMATION: Exam: CT Abdomen And Pelvis With Contrast Exam date and time: 05/13/2024 11:31 PM Age: 84 years old Clinical indication: Other: HX gallbladder mass; Other: R plueral fluid collection; Prior surgery; Surgery date: 6+ months; Surgery type: Hernia repair as child; Patient HX: Large R. Pueral fluid collection, HX gall bladder TECHNIQUE: Imaging protocol: Computed tomography of the abdomen and pelvis with contrast. Radiation optimization: All CT scans at this facility use at least one of these dose optimization techniques: automated exposure control; mA and/or kV adjustment per patient size (includes targeted exams where dose is matched to clinical indication); or iterative reconstruction. Contrast material: OMNIPAQUE 350; Contrast volume: 75 ml; Contrast route: INTRAVENOUS (IV); COMPARISON: CT ABDOMEN PELVIS WO/W 02/02/2022 11:40 AM FINDINGS: Liver: The liver is unremarkable. Gallbladder and biliary ducts: Prior cholecystectomy noted. Pancreas: The pancreas is unremarkable. Spleen: Calcified granulomas noted in the spleen. No splenomegaly. Adrenal glands: The adrenal glands are unremarkable. Kidneys and ureters: Normal. No hydronephrosis. Bilateral simple renal cysts, requiring no further evaluation, as large as 11 mm. Stomach and bowel: No bowel dilatation or transition point to suggest obstruction. No mucosal thickening. No pericolonic inflammatory stranding. Appendix: No evidence of appendicitis. Intraperitoneal space: Unremarkable. No free air. No significant fluid collection. Vasculature: Unremarkable. No abdominal aortic aneurysm. Lymph nodes: Unremarkable. No enlarged lymph nodes. Urinary bladder: The bladder is decompressed by a Hutchinson catheter and not well assessed. Nonspecific urinary bladder wall thickening may be related to underdistended bladder. Consider correlation with urinalysis and culture if there is clinical concern for cystitis. Reproductive: Prostate gland is enlarged with mild mass effect on the base of the urinary bladder. Bones/joints: No suspicious lytic or sclerotic osseous lesion is visualized. Generalized osteopenia. Soft tissues: Unremarkable. IMPRESSION: No acute findings in the abdomen or pelvis. Dictated and Authenticated by: Gary Smalls MD. Ordering:MITRA Rebolledo MD
[2024-05-14] MEDS: Normal Saline Flush 10 ML SYR IVP (01:46)
[2024-05-14] MEDS: Lactated Ringers 1,000 ML 75 ML IV ×2 (01:46→14:47)
[2024-05-14] MEDS: FLUoxetine 20 MG CAP PO (08:55)
--- NOTE | 2024-05-14 09:06 | IN_ITS ---
PT Notes Visit Reasons: Weakness, UTI Physical Therapy Inpatient Initial Evaluation Date: 05/14/2024 Referring Doctor: Alec Donald MD PT Orders: PT CONSULT: Exacerbation Chronic Cond Precautions: Fall. Standard. Activity as tolerated. 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 Patient Profile/Admitting Diagnosis: Patient is an 84-year-old male patient with history of poliomyelitis during childhood who presented to the ED on 05/13/2024 with generalized fatigue, decreased p.o. intake and possible dehydration. He fell at home while attempting to stand up from the toilet seat. He is admitted for management of urinary tract infection. Palliative consult has been made as well as daughters have concern about patient being able to continue to manage alone at home. PMHX: All Active Problems (Updated 05/13/24 @ 23:15 by Alec Donald MD) UTI (urinary tract infection) (Acute) Varus deformity, not elsewhere classified, left knee (Acute) Unintentional weight loss (Acute) Lives alone (Acute) Grief (Chronic) (Acute) Executive function deficit (Acute) Cognitive decline (Chronic) Uses wheelchair (Acute) Weakness of both lower extremities (Chronic) Post-polio syndrome (Chronic) Gross hematuria (Acute) Frequent falls (Chronic) Crutches as ambulation aid (Chronic) using wheelchair more often now Unilateral primary osteoarthritis, left knee (Acute) Localized osteoarthritis of right knee (Acute) 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 (Chronic) monthly change with urology POLST (Physician Orders for Life-Sustaining Treatment) (Acute) Medical History Self-catheterizes urinary bladder DNR (do not resuscitate) DNI (do not intubate) Palliative care patient Gallbladder mass Left inguinal hernia Urinary retention BPH (benign prostatic hyperplasia) Depression High cholesterol Hypertension Social History/Home Situation: Patient lives alone in an partment in [place] close to his daughter Susan's residence. Susan is able to make meals for her da which she braings to his home so all he needs to do is reheat them. passed 2 years ago and patient is still grieving. Patient uses his wheelchair mainly for indoor mobility, sometimes uses [place] crutches for support. he does not receive any other help for his ADLs. Equipment Owned/DME: Wheelchair, 's FWW. Lofstrand crutches Subjective: Pleasant and cooperative. Very fatigued with the littlest of movement. Complained about weakness on the L UE after the fall. Verbalized that he knows what he needs to do but has had no motivation nor the initiative to follow through. Agreeable to going [place] [facility] [place] for strengthening while getting the nourishmentas well as the medical management he needs. Wonders if this worsening fatigue has something to do with his post-polio syndrome. Per Nurse Sommer patient may have respiratory issue that may be impacting patient's overall statsu. Objective: General Observation: Patient resting in bed. 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. IV through R UE. Decreased muscle mass on the L leg and thigh. B knee flexion contractures. Mental Status: Alert and oriented as to person, place, time, and purpose. Able to pay attention, focus, and respond appropriately. Pain: chronic B knees pain Vital Signs: WNL as closely monitored by nursing staff ROM: Right Upper Extremity: Shoulder Flexion allows up to 90 degrees actively . Shoulder abduction 90 degrees actively. Elbow flexion WFL. Wrist flexion WFL. Functional opening and closing of hand WFL. Left Upper Extremity: Shoulder Flexion allows up to 70 degrees actively. Shoulder abduction 50 degrees actively. Elbow flexion WFL. Wrist flexion WFL. Functional opening and closing of hand WFL. Right Lower Extremity: Hip flexion up to about 95 degrees only actively. Hip abduction WFL. Knee flexion 30 degrees to 90 degrees. Knee extension -30 degrees. Ankle dorsiflexion to neutral only. Ankle plantarflexion WFL. Left Lower Extremity: Hip flexion up to about 90 degrees only actively. Hip abduction WFL. Knee flexion 45 degrees to 90 degrees. Knee extension -45 degrees. Ankle dorsiflexion to neutral only. Ankle plantarflexion WFL. Strength: Right Upper Extremity: Shoulder flexors 3-/5. Shoulder abductors 3-/5. Elbow flexors 3+/5. Elbow extensors 3+/5. Health Care Liaison strong. Left Upper Extremity: Shoulder flexors 3-/5. Shoulder abductors 3-/5. Elbow flexors 3+/5. Elbow extensors 3+/5. Health Care Liaison strong. Right Lower Extremity: Hip flexors 3-/5. Hip abductors 3-/5. Knee flexors 3-/5. Knee extensors 3-/5. Ankle dorsiflexors 3-/5. Ankle plantarflexors 3+/5. Left Lower Extremity: Hip flexors 3-/5. Hip abductors 3-/5. Knee flexors 3-/5. Knee extensors 3-/5. Ankle dorsiflexors 3-/5. Ankle plantarflexors 3+/5. Bed Mobility/Transfers: Moderate cueing provided for use of B hands as needed for support, movement sequence, AD management, and posture to reduce fall risk and minimize pain report Supine to sit moderate assist Sit to supine moderate assist Sit to stand moderate assist with STEDY lift Stand to sit moderate assist with STEDY lift Gait: Unable to test. Patient now unable to tolerate static standing for more that 1 minute. Balance: Static Sitting: Fair Dynamic Sitting: Poor Static Standing: Unable to test Dynamic Standing: Unable to test Special Tests: Mobility Limitations Standardized Measure [facility] AM-PAC 6 clicks Basic Mobility Inpatient Short Form: Raw Score: 9 CMS Score: 81% deficit Informed Consent/Education: Patient was instructed in purpose of PT consult. He understands the risk of any persistent dizziness and the effect of infection on his overall mobility level. he verbalizes that he can manage at home with the mobility process that he does and method of assistance he has been giving his for the past several years. Assessment: Patient demonstrates significant functional mobility decline since last seen back in 2021. Now unable to transfer without use of STEDY lift and assist of 2. Static standing tolerance only less than a minute even on the STEDY lift. P atient presents with clinical signs and symptoms consistent with current/admitting diagnoses that have resulted to mobility limitations, gait instability, generalized weakness, and overall ADL decline as demonstrated by the following impairment level findings: 1. Decreased strength to B UE/LE major muscle groups with LL more affected than the R 2. Impaired static standing balance/tolerance 3. Impaired activity tolerance 4. Limitation of joint range of motion in B shoulders, hips and knees 5. B flexion contractures Impairments are contributing to the following functional limitations: 1. Decline in bed mobility skills 2. Decline in transfer skills 3. Inability to ambulate safely 4. Increased completion time for mobility ADL performance 5. Increased risk for falls 6. Difficulty with managing steps alone safely 7. Increased risk for skin breakdown and further contractures Patient is assessed as a 41771 moderate complexity based on the following: History: 84-year-old female with past medical history as indicated above Examination: Demonstrable impairment in strength, balance, and mobility level with underlying impairments and functional limitations as exhibited above as well as deficit score of 81% utilizing the [facility] Mobility Inpatient Short Form Presentation: Evolving Decision Makin moderate complexity Goals: Goals X1 week 1. Supine-Sit stand by assist 2. Sit-Supine stand by assist 3. Sit-Stand minimal assist with FWW 4. Stand-Sit minimal assist with FWW 5. Bed-Chair minimal assist with FWW 6. Chair-Bed minimal assist with FWW 7. Minimal assist with gait on level surface with use of least restrictive device for at least 15 feet without report of pain nor dyspnea 8. Fair static and dynamic standing balance/tolerance Plan of Care/Treatment Plan: Patient will highly benefit from skilled physical therapy services including functional mobility training, bed mobility/transfer training, gait and balance training, therapeutic exercises, therapeutic activity, caregiver/staff/family education and training 1x/day, 7 days/week x 1 week. Plan of care has been reviewed with the LASER BEAM COLOR SCANNER OPERATOR providing the service under Physical Therapy direction. Initiate Physical Therapy intervention for strengthening, bed mobility, transfers, gait, balance training, use of assistive device. DISCHARGE RECOMMENDATIONS: [] Home with no services [] [] Home with services [] [] Home with outpatient PT [] [] SNF for continued rehabilitation [] [] Data Acquisition Technician Care [] [] SNF versus LTC based on ability to participate and progress [] [X] Short-term rehab vs LTC. Patient will benefit [place] [facility] for continued skilled physical therapy services in order to progress mobility level, strength, and balance in preparation for a safe discharge to home. TREATMENT CODE/TIME: 77855 x 20 for 1 unit, 68360 x 21 minutes for 1 unit (9:06-9: 47). Thank you for the opportunity to participate in the care of this patient. Tarsha Patricio PT, DPT, CLT [facility] [place], [place]
--- NOTE | 2024-05-14 09:08 | PDOC.CMIN ---
Date of service: 05/14/24 Time of Service: 09:08 Care Management Initial Assmt Initial Assessment Reason for Hospitalization: Uti and pleural effusion Functional Status/Living Situation Patient Presentation: Reggie was sitting up in bed when CM met with him. He was very pleasant and engaged easily with CM. Reggie lives alone in an apartment in [place]. He has 2 daughters who are very supportive. His daughter Susan lives in [place] and is a school nurse there. His other daughter lives in [place], [place]. Reggie also has 5 grandchildren. His about 18 months ago and Reggie has experienced a gradual decline since then. He shared that he has lost 45 pounds since his . Reggie was admitted with a UTI. Initially he thought he might want to transition to comfort measures however he has since decided to pursue treatment and go to rehab to get stronger. This decision was made after meeting with Jade Judd from Palliative Care, a provider well known to Reggie from the time his was ill. Referrals were sent to [facility] at the family's request. Town of Residence: [place] Resides with: Alone Natural Supports: daughters Susan and Janay Employment Status: Retired Instrumental Activities of Daily Living (ADLs): Requires support Activities/Hobbies/SocialSupport: Meals on Wheels twice a week Medications Medication Management: No Issues/Barriers identified Physical Functioning/Mobility Assistive Device: walker Advance Directives Advance Directives: Do you have an Advance Directive: Y 08/27/22 11:07 AD On File at [facility]: N 08/27/22 11:07 Date Asked 05/13/24 05/13/24 21:12 AD Date Reviewed COLST On File at [facility] No 09/13/22 18:44 COLST Date Scanned Code Status Resuscitation Status DNR/DNI Portal Pt does not currently have a portal and education provided: No Insurance Coverage/Financial Issues Insurance: Medicare [facility] Supplement Care Team Visit Care Team Role Provider Type Siobhan Shetty Primary Care Provider ADV PRACTICE REGISTERED NURSE InPatient [facility] Other Providers OTHER Helena Villatoro MD Emergency Provider [facility] STAFF PHYSICIAN Alec Donald MD Admit Provider [facility] STAFF PHYSICIAN Attending Provider Discharge Potential Discharge Needs: PCP F/U Appt Anticipated Barriers to Discharge: None Identified Patient/Family Education Needs: Review discharge instructions, discuss Ask Me Three Transportation: Private vehicle Plan: Anticipate Adams will be transferred to a SNF when a bed offer is received. He will follow up with the facility providers and plan of acre and transport via RCT coordinated by CM. CM will follow and continue to support Adams and his family and his discharge planning needs. Social Determinants of Health Screening Social Determinants of Health last assessed: 05/15/24 Will the Patient Participate in the Screening?: Yes Do you worry about having a steady place to live?: no Problems where you live: no known problems In the past 12 months, have you had to go without electric, gas, oil or water in your home?: no Have you or anyone in your house had to go without enough food to eat?: no Has lack of transportation kept you from medical appointments or from doing things needed for daily living?: no Has anyone in your life made you feel unsafe or unsupported?: no How hard is it for you to pay for the very basics like food, housing, medical care, and heating? Would you say it is:: Not hard at all Do you want help finding or keeping work or a job?: I do not need or want help If for any reason you need help with day-to-day activities such as bathing, preparing meals, shopping, managing finances, etc., do you get the help you need?: I need a lot more help How often do you feel lonely or isolated from those around you?: Sometimes Do you speak a language other than Faroese at home?: No Does the patient want assistance with any of the above?: No Health Related Social Needs Health related social needs: problems with daily activities (Z73.9) and feeling lonely/isolated (Z60.8) [facility] All Active Problems (Updated 05/14/24 @ 17:20 by Jade Judd NP) ACP (advance care planning) (Acute) 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) Pleural thickening (Acute) Pleural effusion on right (Acute) Fall (Acute) Acute UTI (Acute) UTI (urinary tract infection) (Acute) Varus deformity, not elsewhere classified, left knee (Acute) Unintentional weight loss (Acute) Lives alone (Acute) Grief (Chronic) (Acute) Executive function deficit (Acute) Cognitive decline (Chronic) Uses wheelchair (Acute) Weakness of both lower extremities (Chronic) Post-polio syndrome (Chronic) Gross hematuria (Acute) Frequent falls (Chronic) Crutches as ambulation aid (Chronic) using wheelchair more often now Unilateral primary osteoarthritis, left knee (Acute) Localized osteoarthritis of right knee (Acute) 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 (Chronic) monthly change with urology POLST (Physician Orders for Life-Sustaining Treatment) (Acute) Medical History Self-catheterizes urinary bladder DNR (do not resuscitate) DNI (do not intubate) Palliative care patient Gallbladder mass Left inguinal hernia Urinary retention BPH (benign prostatic hyperplasia) Depression High cholesterol Hypertension Family History Mother , age 83 from Alz Dis Dementia Alzheimer's dementia Father , age 83 from aspiration pneumonia following hip fx, SNF placement Heart disease Aspiration pneumonia Hip fracture Brother , age 58 Stomach cancer Daughter No problems noted. Daughter No problems noted. 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 Pets and animals: Yes Pets and animals: cat(s) Sexually active: No Current gender identity: male What is your relationship status?: How often do you talk on the phone with friends or family?: three or more times per week How often do you get together with friends or relatives?: three or more times per week How often do you attend anabaptism or denominational services?: 1-3 times per year Do you belong to any clubs or organized social groups?: no Panel score (0-1 are the most socially isolated patients): 1 What type of physical activity do you participate in: assisted ambulation Duration: < 15 minutes/day Frequency: daily Lilia/Temple: Jehovah'S Witness Special lilia needs: No Agree to transfusion: No Seatbelt use: always Water heater temp set <120 deg: Yes Working smoke detector in home: Yes Fire extinguisher in home: Yes Firearms in home: No Do you feel safe at home: Yes Do you feel safe in your relationship?: Yes Additional Social history: Jyoti at their apartment on hospice on 07/13/22. In 2018, they had moved to elderly housing in [place] from [place] where he raised his family and lived x 50 years. Daughter Susan lives near-by. Visits several times per week. He has lived a good life. Falls regularly. Advised caution. Unsafe living situation by himself. Working on looking at Assisted Living. Acutely grieving his .
--- NOTE | 2024-05-14 12:39 | PHA.REVIEW2 ---
Pharmacy Admission Review Admission Clinical Review Admission Pharmacy Review: UTI (urinary tract infection) (Acute) Penicillins Allergy (Verified 05/14/24 02:49) Skin Rash Resuscitation Status DNR/DNI Height 6 ft Weight 67.132 kg Comments Comments/Follow Ups: Follow up with provider regarding DVT prophylaxis if no orders are put in Pharmacy Admission Review Renal Dosing Renal Dosing: BUN 28 mg/dL (7-18) H 05/13/24 21:16 Creatinine 1.0 mg/dL (0.70-1.30) 05/13/24 21:16 Medications needing adjustments: Reviewed (CrCl 50.35 mL/min) List of meds needing interventions: Current medications are okay Anticoagulation Anticoagulation: Hgb 15.4 g/dL (13.5-17.5) 05/13/24 21:16 Hct 45.8 % (40.0-50.0) 05/13/24 21:16 Plt Count 346 10^3/uL (130-400) 05/13/24 21:16 INR 1.2 (0.9-1.1) H 05/13/24 21:16 Creatinine 1.0 mg/dL (0.70-1.30) 05/13/24 21:16 DVT Prophylaxis: Intervened (None at this time, informed provider and they are looking into it) Relevant Labs Relevant Labs: Sodium 137 mmol/L (136-145) 05/13/24 21:16 Potassium 4.2 mmol/L (3.5-5.1) 05/13/24 21:16 Chloride 100 mmol/L (98-107) 05/13/24 21:16 Magnesium 1.9 mg/dL (1.8-2.4) 05/13/24 21:16 Electrolytes, C-Reactive P, ESR: Reviewed (No new labs for today) Cardiac Review Cardiac Review: Blood Pressure : Heart Rate 123/80 : 96 0834 Blood Pressure : Heart Rate 148/90 : 101 0410 Blood Pressure : Heart Rate 128/90 : 87 0112 BP, HR, EF%: Reviewed QTc Review QTc: Reviewed (437 from 10/27/23 - most recent EKG on file) IV to PO Switch IV Medications: Reviewed (ceftriaxone) Home Meds Home Med List reviewed: Reviewed Relevent Home Meds Not ordered & why?: garlic Current Meds Current Medication Order Review: Intervened Comments: Added IV admission accesss Retimed ceftriaxone - was scheduled to start last night at 2200 but patient had received a now one dose. Retimed for today at 2200. Pharmacy Antibiotic Review Relevant Labs: WBC 17.95 10^3/uL (4.4-10.8) H 05/13/24 21:16 Temperature 36.1 C Temperature 36.4 C Temperature 36.8 C Pharmacy Antibiotic Activity: C/S review and Reviewed, no change Comments: Patient is on ceftriaxone, day 1, for UTI. Urine culture pending. Comments Comments/Follow Ups: Follow up with provider regarding DVT prophylaxis if no orders are put in
--- NOTE | 2024-05-14 14:58 | PT.INTREAT ---
PT Notes Visit Reasons: Weakness, UTI Inpatient Physical Therapy Treatment Note [facility] Date: 05/14/24 SUBJECTIVE: Reggie reports that he is in rough shape. I don't recognize myself anymore when I look into the mirror. Notes that he can not reach his left arm forward or up. OBJECTIVE: []? PAIN:c/o mid back pain. VITALS: ?monitored by nsg. Therapeutic Activities ([id number]): Direct one-on-one instruction in dynamic activities to improve functional performance. ? BED MOBILITY/TRANSFERS? Rolling L/R: min A ? Sit-supine:min A? Sit-stand:mod Ax2 and STEDY? Stand-sit: min A x2 ? Chair-bed: STEDY lift. Provided skilled cues and instruction on performance and technique throughout. ? was able to casino shift manager STEDY lift 2x2 min while receiving kwaku-care and bandage change. It was noted that he had another breakdown spot on thoracic spine.? ASSESSMENT:?tolerated session well. Requires assistance to reach left arm forward to bar but able to lift himself up once he gets there. PLAN: will continue to work on strength and functional mobility as per POC. TREATMENT CODE/TIME: 20 min. [id number] DISCHARGE RECOMMENDATION: SNF vs terminal manager care.
--- NOTE | 2024-05-14 16:57 | W.PALLCONSUL ---
Date of service: 05/14/24 Time of Service: 15:30 History of Present Illness Narrative: Mr. 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 His two years ago, he has been living alone since then. Over the past year he has had a more sig decline. Most recently a decline in appetite, more bedbound. - PCP notes concern for decline: weight loss 50lbs, increased care needs, depended on others/brad for transfers; previously recommended hospice, however they did not have the appropriate caregiver support to remain home w/hospice supports Reggie is WC bound at baseline, brad for transfers. His daughter Susan visits 2x/day and calls 2-3x/day. She is working integrated marketing specialist as school nurse and eamon Gustafson works in [place], [place] for [employer]. They have some adult grandchildren however they are in college and not available as well. Susan had been preparing him meals to eat at home. Over the past few weeks increased bedbound, needing more assistance. Reggie agrees that he is not safe to return home to living alone. He would like to be around his friends as possible, he enjoys socializing and wants to use his time left to spread the word of God and His power. he is from [facility], and Susan feels he would still be well connected at either [facility] or [place]. Reggie has completed a COLST previously, it is on file at [facility], they will bring in a copy tomorrow; the COLST is DNR/I BOREMATIC OPERATOR w/trial abx. reggie would want eamon Davis to be HCA w/daughter Janay as co-agent. He would like to have UTI treated currently, w/goal of curing UTI. He is grateful to God for his cancer diagnosis, and a means to go home sooner, home being [place]. He is looking forward to going home, and does not wish to have his life prolonged, and is consistent w/wanting UTI treatment to feel a bit better right now and give him some more time to socialize w/friends/family Assessment and Plan Assessment and plan (1) Acute UTI: Status: Acute Assessment and plan: continue treatment, ceftriaxone and gentle hydration (2) Pleural effusion on right: Status: Acute (3) Unintentional weight loss: Status: Acute (4) Lives alone: Status: Acute (5) : Status: Acute (6) Uses wheelchair: Status: Acute (7) Post-polio syndrome: Status: Chronic (8) Frequent falls: Status: Chronic (9) 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: Status: Chronic (10) Gallbladder mass: Assessment and plan: presumed primary (11) 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: Status: Acute (12) Encounter for hospice care discussion: Status: Resolved Assessment and plan: Reggie would be eligible for hospice benefit on discharge, however d/t payer source hospice style care, w/comfort directed care, no transfers back to hospital is recommended - consider hospice pending insurance coverage - not safe to return home alone at this time, no caregivers avaible for 22/11 care (13) 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 Once he is medically cleared from UTI, the plan is for discharge to SNF for short term to residential rehab. Reggie does not wish to have further treatment/work up for cancer of unknown, presumably gallbladder, origin, rather is grateful to God for this diagnosis and prefers to honor his time left by socializing w/those around him and dedicating his time to God. - sports management professor consult placed Reviewed and completed HCA, Susan Blandon; reviewed COLST, at home, Susan will bring in tomorrow: DNR/I, comfort directed care, trial abx reviewed current plan as above, reviewed if he changes his mind and opts for stopping abx, he may do that. If he loses capacity prior to discharge, transition to strict comfort directed care w/no LST may be considered and he may remain in hospital for EOL care if appropriate at that time, Susan aware she would be acting HCA in this circumstance. 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) Pleural thickening (Acute) Pleural effusion on right (Acute) Fall (Acute) Acute UTI (Acute) UTI (urinary tract infection) (Acute) Varus deformity, not elsewhere classified, left knee (Acute) Unintentional weight loss (Acute) Lives alone (Acute) Grief (Chronic) (Acute) Executive function deficit (Acute) Cognitive decline (Chronic) Uses wheelchair (Acute) Weakness of both lower extremities (Chronic) Post-polio syndrome (Chronic) Gross hematuria (Acute) Frequent falls (Chronic) Crutches as ambulation aid (Chronic) using wheelchair more often now Unilateral primary osteoarthritis, left knee (Acute) Localized osteoarthritis of right knee (Acute) 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 (Chronic) monthly change with urology POLST (Physician Orders for Life-Sustaining Treatment) (Acute) Medical History Self-catheterizes urinary bladder DNR (do not resuscitate) DNI (do not intubate) Palliative care patient Gallbladder mass Left inguinal hernia Urinary retention BPH (benign prostatic hyperplasia) Depression High cholesterol Hypertension Family History Mother , age 83 from Alz Dis Dementia Alzheimer's dementia Father , age 83 from aspiration pneumonia following hip fx, SNF placement Heart disease Aspiration pneumonia Hip fracture Brother , age 58 Stomach cancer Daughter No problems noted. Daughter No problems noted. 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 Pets and animals: Yes Pets and animals: cat(s) Sexually active: No Current gender identity: male What is your relationship status?: How often do you talk on the phone with friends or family?: three or more times per week How often do you get together with friends or relatives?: three or more times per week How often do you attend episcopal or advent services?: 1-3 times per year Do you belong to any clubs or organized social groups?: no Panel score (0-1 are the most socially isolated patients): 1 What type of physical activity do you participate in: assisted ambulation Duration: < 15 minutes/day Frequency: daily Lilia/Gnosticist: Gnosticist Special lilia needs: No Agree to transfusion: No Seatbelt use: always Water heater temp set <120 deg: Yes Working smoke detector in home: Yes Fire extinguisher in home: Yes Firearms in home: No Do you feel safe at home: Yes Do you feel safe in your relationship?: Yes Additional Social history: Jyoti at their apartment on hospice on 07/13/22. In 2018, they had moved to elderly housing in [place] from [place] where he raised his family and lived x 50 years. Daughter Susan lives near-by. Visits several times per week. He has lived a good life. Falls regularly. Advised caution. Unsafe living situation by himself. Working on looking at Assisted Living. Acutely grieving his . Exam Narrative Exam Narrative: General: older adult male, lying in hospital bed, cooperative, AAOx3 HEENT: temporal wasting ,hearing grossly WNL Resp: normal respiratory effort, speaks full and complete sentences w/no SOB, no cough, no audible wheeze Skin: atrophy Ext: hands cool to touch Psych: pleasant, cooperative, speech clear, mood/affect congruent/normal; insight/judgment fair Results Last Vital Signs Temp 97.3 F L 05/14/24 15:41 Pulse 89 05/14/24 15:41 Resp 18 05/14/24 15:41 BP 124/66 05/14/24 15:41 Pulse Ox 96 05/14/24 15:41 Labs 05/13/24 21:16 05/13/24 21:16 Labs: Laboratory Results - last 24 hr 05/13/24 05/13/24 21:16 22:30 WBC 17.95 H RBC 5.29 Hgb 15.4 Hct 45.8 MCV 87 MCH 29.1 MCHC 33.6 RDW 14.1 Plt Count 346 MPV 9.5 Immature Gran % 0.0 Neutrophils % 90.0 Lymphocytes % 2.0 Atypical Lymphs % 1 Monocytes % 7.0 Eosinophils % 0.0 Basophils % 0.0 Nucleated RBC % 0.0 Absolute Neutrophils 16.16 H Absolute Lymphocytes 0.54 L Absolute Monocytes 1.26 H Absolute Eosinophils 0.00 Absolute Basophils 0.00 RBC Morphology Normal PT 12.0 H INR 1.2 H Sodium 137 Potassium 4.2 Chloride 100 Carbon Dioxide 28.8 Anion Gap 8.2 BUN 28 H Creatinine 1.0 Est GFR (CKD-EPI 2020) 73.30 Glucose 148 H Calcium 9.5 Magnesium 1.9 Total Bilirubin 0.62 AST 40 H ALT 42 Alkaline Phosphatase 300 H Creatine Kinase 94 Total Protein 7.3 Albumin 2.2 L Urine Color Yellow Urine Clarity Turbid Urine pH 6.0 Ur Specific [place] >= 1.030 H Urine Protein >=300 H Urine Ketones Trace H Urine Blood Large H Urine Nitrite Negative Urine Bilirubin Small H Urine Urobilinogen 1.0 H Ur Leukocyte Esterase Large H Urine RBC Not Applicable Urine WBC >50 H Ur Epithelial Cells Not Applicable Urine Crystals Not Applicable Urine Bacteria Not Applicable Urine Mucus Not Applicable Ur Culture Indicated? Yes Urine Glucose 100 H Time Spent Time Spent with Patient Time Spent(min): 120
--- NOTE | 2024-05-14 17:30 | W.PM.PROGNOT ---
Date of Service Date of service: 05/14/24 Time of Service: 18:49 Assessment and Plan Assessment and plan (1) UTI (urinary tract infection): Status: Acute Assessment and plan: Continue Rocephin empirically for now, along with gentle hydration. Consult palliative care - see that note PT eval Patient remains DNR DNI Discussed goals of care with patient and daughter Susan - patient does want to be treated for UTI (2) Pleural effusion on right: Status: Acute (3) Unintentional weight loss: Status: Acute Assessment and plan: Family reports 40 pounds wt loss in 6 months Per chart 10/27/2023 77 kg; today 67 kg. 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 HEENT -Head: NC/AT; -Eyes: PERRL, EOMI. No discharge or redness; -Ears: External ears are normal. -Nose: Normal nares. -Mouth and throat: Dry MM. .Poor dentition NECK: Supple, with no masses. CV: RRR, no m/r/g. LUNGS: Clear bilaterally, no w/r/c. ABD: Soft, NT/ND, NBS, no masses or organomegaly. : N/A SKIN: Warm, hands are cool bilaterally;. No skin rashes or abnormal lesions. MSK: No deformities . EXT: No clubbing, cyanosis, or edema. NEURO: Weak bilateral muscle strength. No focal deficits. ? Objective Last Vital Signs Temp 36.3 C L 05/14/24 15:41 Pulse 89 05/14/24 15:41 Resp 18 05/14/24 15:41 BP 124/66 05/14/24 15:41 Pulse Ox 96 05/14/24 15:41 Laboratory Results - last 24 hr 05/13/24 05/13/24 21:16 22:30 WBC 17.95 H RBC 5.29 Hgb 15.4 Hct 45.8 MCV 87 MCH 29.1 MCHC 33.6 RDW 14.1 Plt Count 346 MPV 9.5 Immature Gran % 0.0 Neutrophils % 90.0 Lymphocytes % 2.0 Atypical Lymphs % 1 Monocytes % 7.0 Eosinophils % 0.0 Basophils % 0.0 Nucleated RBC % 0.0 Absolute Neutrophils 16.16 H Absolute Lymphocytes 0.54 L Absolute Monocytes 1.26 H Absolute Eosinophils 0.00 Absolute Basophils 0.00 RBC Morphology Normal PT 12.0 H INR 1.2 H Sodium 137 Potassium 4.2 Chloride 100 Carbon Dioxide 28.8 Anion Gap 8.2 BUN 28 H Creatinine 1.0 Est GFR (CKD-EPI 2020) 73.30 Glucose 148 H Calcium 9.5 Magnesium 1.9 Total Bilirubin 0.62 AST 40 H ALT 42 Alkaline Phosphatase 300 H Creatine Kinase 94 Total Protein 7.3 Albumin 2.2 L Urine Color Yellow Urine Clarity Turbid Urine pH 6.0 Ur Specific [place] >= 1.030 H Urine Protein >=300 H Urine Ketones Trace H Urine Blood Large H Urine Nitrite Negative Urine Bilirubin Small H Urine Urobilinogen 1.0 H Ur Leukocyte Esterase Large H Urine RBC Not Applicable Urine WBC >50 H Ur Epithelial Cells Not Applicable Urine Crystals Not Applicable Urine Bacteria Not Applicable Urine Mucus Not Applicable Ur Culture Indicated? Yes Urine Glucose 100 H Time Spent with Patient Time Spent with Patient: 25-34 minutes Time was spent: preparing to see the patient(eg.review tests), ordering medications,tests, procedures, referring, communicating with other health home health care worker, indepentently interpreting results, counseling the patient and care coordination
[2024-05-14] MEDS: Enoxaparin 40 MG/0.4 ML SYR SC (18:11)
[2024-05-14] MEDS: cefTRIAXone 1,000 MG in Normal Saline 50 ML 100 MG IVPB (21:51)
[2024-05-14] MEDS: Lidocaine 2% Jelly 11 ML SYR UR (23:07)
[2024-05-15 03:43] VITALS: BP 149/90; PULSE 90; RESP 18; TEMP 36.4; O2SAT 95
[2024-05-15 06:16] LABS: Abs Immature Grans 0.05 10^3/uL (0.0-0.06); Absolute Basophil Count 0.06 10^3/uL (0.0-0.2); Absolute Eosinophil Count 0.06 10^3/uL (0.0-0.7); Absolute Lymphocyte Count 1.23 10^3/uL (1.2-3.4); Absolute Monocyte Count 1.48 10^3/uL (0.1-0.8); Absolute Neutrophil Count 6.98 10^3/uL (1.2-6.7); Basophils % 0.6 %; Eosinophils % 0.6 %; HCT 43.5 % (40.0-50.0); HGB 14.3 g/dL (13.5-17.5); Immature Grans % 0.5 %; Lymphocytes % 12.5 %; MCH 28.9 pg (27.0-33.0); MCHC 32.9 % (32.0-36.0); MCV 88 fL (80-95); MPV 10.2 fL (8.0-11.0); Neutrophils % 70.8 %; Platelet Count 232 10^3/uL (130-400); RBC 4.95 10^6/uL (4.36-5.78); RDW 14.3 % (11.8-14.1); RDW-SD 45.9 fL; WBC 9.86 10^3/uL (4.4-10.8)
[2024-05-15 06:34] LABS: BUN 20 mg/dL (7-18); CREATININE 0.7 mg/dL (0.70-1.30); Calcium 9.1 mg/dL (8.5-10.1); Chloride 104 mmol/L (98-107); Estimated GFR 89.73 (mL/min/1.73m2); Glucose 97 mg/dL (74-106); Magnesium 1.8 mg/dL (1.8-2.4); Potassium 3.6 mmol/L (3.5-5.1); Sodium 138 mmol/L (136-145)
[2024-05-15 07:31] VITALS: BP 133/76; PULSE 89; RESP 17; TEMP 36.7; O2SAT 97
[2024-05-15] MEDS: FLUoxetine 20 MG CAP PO (08:55)
--- NOTE | 2024-05-15 09:25 | W.PM.PROGNOT ---
Date of Service Date of service: 05/15/24 Time of Service: 09:25 Assessment and Plan Assessment and plan (1) UTI (urinary tract infection): Status: Acute Assessment and plan: Stop ceftriaxone Seen by palliative care - see that note PT eval Patient remains DNR DNI Urine cx - gm neg gloria, pseudomonas and gm + and gm - hebert - Start Cefepime 2 gm every 12h (2) Pleural effusion on right: Status: Acute Assessment and plan: Stable - no O2 requirement; SPO2 stable (3) Unintentional weight loss: Status: Acute Assessment and plan: Family reports 40 pounds wt loss in 6 months Per chart 10/27/2023 77 kg; today 67 kg. 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 Objective Last Vital Signs Temp 36.7 C 05/15/24 07:31 Pulse 89 05/15/24 07:31 Resp 17 05/15/24 07:31 BP 133/76 05/15/24 07:31 Pulse Ox 97 05/15/24 07:31 Laboratory Results - last 24 hr 05/15/24 05:53 WBC 9.86 RBC 4.95 Hgb 14.3 Hct 43.5 MCV 88 MCH 28.9 MCHC 32.9 RDW 14.3 H Plt Count 232 MPV 10.2 Immature Gran % 0.5 Neutrophils % 70.8 Lymphocytes % 12.5 Monocytes % 15.0 Eosinophils % 0.6 Basophils % 0.6 Nucleated RBC % 0.0 Absolute Neutrophils 6.98 H Absolute Lymphocytes 1.23 Absolute Monocytes 1.48 H Absolute Eosinophils 0.06 Absolute Basophils 0.06 Sodium 138 Potassium 3.6 Chloride 104 Carbon Dioxide 29.0 Anion Gap 5.0 BUN 20 H Creatinine 0.7 Est GFR (CKD-EPI 2020) 89.73 Glucose 97 Calcium 9.1 Magnesium 1.8 Time Spent with Patient Time Spent with Patient: 25-34 minutes Time was spent: preparing to see the patient(eg.review tests), ordering medications,tests, procedures, referring, communicating with other health intensive care ambulance paramedic, indepentently interpreting results, counseling the patient and care coordination
--- NOTE | 2024-05-15 10:09 | PT.INTREAT ---
PT Notes Visit Reasons: Weakness, UTI Date: 05/15/24 SUBJECTIVE: pt in recliner when approached for therapy this morning, requested to go back in bed, pt agreed to participating with therapy session while waiting for his bed to get cleaned and setup. Pt in bed when approached for the second time this afternoon for therapy, pt agreed to participating with therapy session. OBJECTIVE: IV line on the right antecubital, urinary catheter ? PAIN: c/o mid back pain. VITALS: ?monitored by nsnina. Therapeutic Activities [id number] 30mins: Direct one-on-one instruction in dynamic activities to improve functional performance. ? BED MOBILITY/TRANSFERS? Rolling L/R: min A ? Sit-supine:min A? Sit-stand: min A ? Stand-sit: min A ? Chair-bed: STEDY lift. Provided skilled cues and instruction on performance and technique throughout. ? sit to stand from ? ASSESSMENT:?Pt performed well on both AM/PM sessions with pt able to perform sit to stand with very minimal A, able to reach end bar of Steady lift for easier transition and able to tolerate unsupported sitting on th platform while doing reaching activity, weight shifting, pt able to return to bed with minimal A. PLAN: will continue to work on strength and functional mobility as per POC. TREATMENT CODE/TIME: [id number] 30mins (9:30-10:00am) [id number] 30mins (2:00-2:30pm) DISCHARGE RECOMMENDATION: SNF vs parts counterman care.
--- NOTE | 2024-05-15 11:39 | PDOC.CMPRO ---
Date of service: 05/15/24 Time of Service: 11:39 Care Management Progress Note Progress Note Text Progress Note Text: Reggie was lying in bed when CM met with him. He was again pleasant and easily engaged with CM. Reggie is being treated for a UTI. he is alert and oriented today and was pleased to learn that he has a bed offer from [facility] in [place]. He informed CM that he will gladly accept the offer. Reggie will likely be medically ready tomorrow for transfer. CM left a message for his daughter Susan informing her of the plan. Transportation to be determined by Susan. She may choose to transport him herself or CM can arrange for RCT. Discharge Potential Discharge Needs: Other (SNF for short term rehab) Anticipated Barriers to Discharge: Bed availability Patient/Family Education Needs: Review discharge instructions, discuss Ask Me Three Transportation: RCT Plan: Anticipate Adams will be transferred to [place], [place] for short term rehab when medically ready. This will likely be tomorrow. He will follow up with the facility providers and transport with family vs via RCT coordinated by CM. CM will follow and continue to support Adams and his discharge planning needs. Social Determinants of Health Screening Social Determinants of Health last assessed: 05/15/24 Will the Patient Participate in the Screening?: Yes Do you worry about having a steady place to live?: no Problems where you live: no known problems In the past 12 months, have you had to go without electric, gas, oil or water in your home?: no Have you or anyone in your house had to go without enough food to eat?: no Has lack of transportation kept you from medical appointments or from doing things needed for daily living?: no Has anyone in your life made you feel unsafe or unsupported?: no How hard is it for you to pay for the very basics like food, housing, medical care, and heating? Would you say it is:: Not hard at all Do you want help finding or keeping work or a job?: I do not need or want help If for any reason you need help with day-to-day activities such as bathing, preparing meals, shopping, managing finances, etc., do you get the help you need?: I need a lot more help How often do you feel lonely or isolated from those around you?: Sometimes Do you speak a language other than [place] Islander at home?: No Does the patient want assistance with any of the above?: No Health Related Social Needs Health related social needs: problems with daily activities (Z73.9) and feeling lonely/isolated (Z60.8)
--- NOTE | 2024-05-15 17:42 | CHAPLAIN ---
Reggie and I know each other from when we both lived in [place]. Reggie lives in [place] now in a senior apartment building. His Georgiana nearly two years ago. Reggie's Jewish yoel is very important to him and he said his goal is to tell people about the goodness of God and Bobby. He is connected to the [facility] (near [place]) and his manager business information, Bill Mcgraw, visited today. After receiving a recent cancer diagnosis, Reggie said he was happy know that he be with the Lord soon, and he told me about how he envisions meeting God and seeing Georgiana again. He offered a prayer with me. Reggie's daughter, Susan, was her later this afternoon and said the plan is for Reggie to be transferred to [facility] in [place] tomorrow so he can closer to his friends and jewish people. Reggie has said he'd like to go back to [place], or the [facility] in [place]. Susan, her Yousuf, and three children have been strong supports for Reggie, especially since Georgiana's . Susan said she is fine with Reggie going to [place] since that is where he wants to be and she will go there to visit him. Reggie said he isn't having any pain, and that Bobby has answered his prayers about that. He is very comfortable with his nearing but in the mean time hopes to tell others about how God can care for them.
[2024-05-15] MEDS: Enoxaparin 40 MG/0.4 ML SYR SC (18:36)
[2024-05-15] MEDS: Lactated Ringers 1,000 ML 75 ML IV (18:36)
[2024-05-15] MEDS: CEFEPIME 2 GM in Normal Saline 100 ML IVPB (20:08)
[2024-05-15] MEDS: Normal Saline Flush 10 ML SYR IVP (20:09)
[2024-05-16 06:57] LABS: Abs Immature Grans 0.05 10^3/uL (0.0-0.06); Absolute Basophil Count 0.04 10^3/uL (0.0-0.2); Absolute Eosinophil Count 0.08 10^3/uL (0.0-0.7); Absolute Lymphocyte Count 1.08 10^3/uL (1.2-3.4); Absolute Monocyte Count 1.16 10^3/uL (0.1-0.8); Basophils % 0.4 %; Eosinophils % 0.9 %; HCT 40.7 % (40.0-50.0); HGB 13.8 g/dL (13.5-17.5); Immature Grans % 0.6 %; MCH 28.9 pg (27.0-33.0); MCHC 33.9 % (32.0-36.0); MCV 85 fL (80-95); MPV 10.2 fL (8.0-11.0); Monocytes % 12.9 %; Neutrophils % 73.2 %; Platelet Count 264 10^3/uL (130-400); RBC 4.78 10^6/uL (4.36-5.78); RDW 14.2 % (11.8-14.1); RDW-SD 43.8 fL; WBC 9.01 10^3/uL (4.4-10.8)
[2024-05-16 07:28] LABS: Anion Gap 6.4 mmol/L (3-11); BUN 13 mg/dL (7-18); CO2 27.6 mmol/L (21.0-32.0); CREATININE 0.6 mg/dL (0.70-1.30); Calcium 8.1 mg/dL (8.5-10.1); Chloride 102 mmol/L (98-107); Estimated GFR 94.01 (mL/min/1.73m2); Glucose 100 mg/dL (74-106); Magnesium 1.6 mg/dL (1.8-2.4); Potassium 3.7 mmol/L (3.5-5.1); Sodium 136 mmol/L (136-145)
[2024-05-16 07:36] VITALS: BP 152/89; PULSE 83; RESP 17; TEMP 36.6; O2SAT 95
[2024-05-16] MEDS: FLUoxetine 20 MG CAP PO (08:39)
[2024-05-16] MEDS: CEFEPIME 2 GM in Normal Saline 100 ML IVPB (08:39)
--- NOTE | 2024-05-16 10:34 | CMDISCH_ITS ---
Date of service: 05/16/24 Time of Service: 10:34 Care Management Discharge Plan Reason for Hospitalization: Weakness, UTI Discharge Plan: Discharge to [facility]. Transportation is provided by [facility]. Follow up with community/facility providers and his discharge plan of care as instructed. CM notified patients Daughter prior to discharge; both dAams and Susan are agreeable to this discharge plan. Patient/Family Education Needs: Review discharge instructions and plan to follow up. Discuss ask me three. Services Needed at Discharge: Correction Facility ([facility]) and Transportation (EMS, coordinated by CM) SDOH Health Related Social Needs: Health related social needs problems with daily activi ties (Z73.9), feeling lonely/isolated (Z60.8) Referrals and interventions: He needs assistance with preparing meals.
--- NOTE | 2024-05-16 10:34 | PDOC.CMDIS ---
Date of service: 05/16/24 Time of Service: 10:34 Care Management Discharge Plan Reason for Hospitalization: Weakness, UTI Discharge Plan: Discharge to [facility]. Transportation is provided by [facility]. Follow up with community/facility providers and his discharge plan of care as instructed. CM notified patients Daughter prior to discharge; both Adams and Susan are agreeable to this discharge plan. Patient/Family Education Needs: Review discharge instructions and plan to follow up. Discuss ask me three. Services Needed at Discharge: Assisted Facility ([facility]) and Transportation (EMS, coordinated by CM) SDOH Health Related Social Needs: Health related social needs problems with daily activities (Z73.9), feeling lonely/isolated (Z60.8) Referrals and interventions: He needs assistance with preparing meals.
[2024-05-16] MEDS: MAGNESIUM SULFATE 1 GM/100 ML BAG IV_INF (10:41)
--- NOTE | 2024-05-16 12:33 | DSE_ITS ---
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 Admission Details: The patient was evaluated by Emergency Medical Services after a fall. He was on the toilet and attempting to stand when he lost his balance. The patient reported that the loss of balance was due to weakness in his legs, which was baseline for him due to his history of polio. He did not believe he hit his head or lost consciousness during the fall. He does not take any blood-thinning medications. After the fall, he pulled himself across the cement floor and remained there for about an hour and a half before his family found him. According to the family, the patient had not been in his usual state of health for several days. There had been a gradual decline in his condition since the of his 18 months ago, characterized by poor oral intake, weight loss, and a recent transition to palliative care. The family was unable to reach the patient by phone, and upon finding him, they noted that he was initially complaining of back pain, likely from being on the ground and pulling himself across the floor. The family also noted that although the patient had been on antibiotics for a few days, they had not seen an improvement in his mental status, which had been confused. The family attributed this symptom to previous urinary tract infections. The catheter had been changed just a few days ago, on Tuesday. The patient reported no syncope, head trauma, or loss of consciousness, but the family observed increased weakness and confusion over the past few days, which they believed was consistent with prior UTI episodes. Emergency Department Findings: The patient's white blood cell count was elevated at 17. Urinalysis showed more than 50 white blood cells. A head CT and cervical spine imaging were performed, both of which were negative. However, an incidental finding of right pleural thickening or a possible effusion was noted on the spine scan. The patient was administered 1 gram of Rocephin. Patient was changed to cefepime IV after cultures came back (positive pseudomonas aeruginosa, moranella morgani ssp morgani). He will be discharged wtih a prescription for Cefdinir. Physical Exam and Functional Status: The patient denied any pain but reported feeling weak. Physical therapy noted that he required assistance to reach his left arm forward to a bar, but once there, he was able to lift himself up independently. He was wheelchair-bound at baseline and required a Abel lift for transfers. The patient was no longer safe to live alone and had expressed a preference for being around friends as much as possible. He enjoyed socializing and wanted to use his remaining time to spread the word of God. He was from the [facility], and his daughter Susan believed he would still be well-connected at [facility]. Plan: The patient will continue working on strength and functional mobility as outlined in his plan of care. Regarding his weakness, he will be transferred to [facility] per his request. The patient's indwelling urinary catheter was changed today 05/16/2024. The patient is being discharged with a prescription for 5 days of cefdinir to be taken twice a day and a copy of his COLST. Home Meds and New Rx's Prescriptions: New cefdinir 300 mg capsule 300 mg PO BID 7 Days Qty: 14 0RF Continued garlic 1,000 mg capsule 1,000 mg PO DAILY fluoxetine 20 mg capsule 20 mg PO QAM Patient Comments: TAKE ONE CAPSULE BY MOUTH EVERY DAY Discharge Instructions Additional Instructions: Follow up with PCP Referrals: Siobhan Shetty [Primary Care Provider] - (Post hospitalization; rehabilitation - appt to be made when discharge from rehab) Activity:: Activity as Tolerated Equipment/Supplies:: No Equipment Needed Diet:: Heart Healthy DS: Summary Time Spent with Patient providing and/or coordinating discharge services: Greater than 30 minutes Status at Discharge Functional status at discharge: wheelchair bound Overall status at discharge: patient is progressing back to baseline Mental Status: mental status grossly normal Speech and Movement: speech and movement normal Mood: congruent mood Affect: normal affect Quality:SDOH Health Related Social Needs: Health related social needs problems with daily activi ties (Z73.9), feeling lonely/isolated (Z60.8) Referrals and interventions: He needs assistance with preparing meals. Exam Narrative Exam Narrative: GEN: Thin, cachectic appearing, well-developed, NAD. HEENT -Head: NC/AT; -Eyes: PERRL, EOMI. No discharge or redness; -Ears: External ears are normal. -Nose: Normal nares. -Mouth and throat: Dry MM. .Poor dentition NECK: Supple, with no masses. CV: RRR, no m/r/g. LUNGS: Clear bilaterally, no w/r/c. ABD: Soft, NT/ND, NBS, no masses or organomegaly. : N/A SKIN: Warm, hands are cool bilaterally;. No skin rashes or abnormal lesions. MSK: No deformities . EXT: No clubbing, cyanosis, or edema. NEURO: Weak bilateral muscle strength. No focal deficits. ? Psych Mental Status: mental status grossly normal Speech and Movement: speech and movement normal Mood: congruent mood Affect: normal affect DS: Data Vitals/I&O Vitals and I&O: Vital Signs Temperature 36.6 C 05/16/24 07:36 Temperature Source Temporal Artery Scan 05/16/24 07:36 Pulse 83 05/16/24 07:36 Pulse Rhythm Regular 05/14/24 01:49 Pulse 90 05/14/24 00:10 Respiratory Rate 17 05/16/24 07:36 Respiratory Effort Normal 05/14/24 01:49 Respiratory Depth Normal 05/14/24 01:49 Respiratory Pattern Normal 05/14/24 01:49 Blood Pressure 152/89 H 05/16/24 07:36 Blood Pressure Mean 110 05/14/24 00:00 Pulse Oximetry 95 05/16/24 07:36 Oxygen Delivery Method Room Air 05/16/24 07:36 Oxygen Flow Rate 0 05/16/24 07:36 Pain Level 0 05/16/24 07:36 Comment Refused VS 05/15/24 20:03 Intake & Output 05/15/24 05/16/24 05/16/24 23:59 11:59 23:59 Intake Total 235 / 2415 720 / 720 Output Total 1400 / 1400 Balance 2014 -680 / -680 Intake: IV 235 / 2235 100 / 100 Oral 620 / 620 Output: Urine 1400 / 1400 Other: Urine Color Yellow Urine Appearance Clear Comment Slight odor. Stool Size Moderate Stool Characteristics Soft Formed Brown Data Completed and Pending Labs on day of discharge: Labs from last 24 hours 05/16/24 05:52 WBC 9.01 RBC 4.78 Hgb 13.8 Hct 40.7 MCV 85 MCH 28.9 MCHC 33.9 RDW 14.2 H Plt Count 264 MPV 10.2 Immature Gran % 0.6 Neutrophils % 73.2 Lymphocytes % 12.0 Monocytes % 12.9 Eosinophils % 0.9 Basophils % 0.4 Nucleated RBC % 0.0 Absolute Neutrophils 6.60 Absolute Lymphocytes 1.08 L Absolute Monocytes 1.16 H Absolute Eosinophils 0.08 Absolute Basophils 0.04 Sodium 136 Potassium 3.7 Chloride 102 Carbon Dioxide 27.6 Anion Gap 6.4 BUN 13 Creatinine 0.6 L Est GFR (CKD-EPI 2020) 94.01 Glucose 100 Calcium 8.1 L Magnesium 1.6 L PFSH All Active Problems (Updated 05/16/24 @ 12:07 by Ana Winkler NP) ACP (advance care planning) (Acute) 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) Pleural thickening (Acute) Pleural effusion on right (Acute) Fall (Acute) Acute UTI (Acute) UTI (urinary tract infection) (Acute) Varus deformity, not elsewhere classified, left knee (Acute) Unintentional weight loss (Acute) Lives alone (Acute) Grief (Chronic) (Acute) Executive function deficit (Acute) Cognitive decline (Chronic) Uses wheelchair (Acute) Weakness of both lower extremities (Chronic) Post-polio syndrome (Chronic) Gross hematuria (Acute) Frequent falls (Chronic) Crutches as ambulation aid (Chronic) using wheelchair more often now Unilateral primary osteoarthritis, left knee (Acute) Localized osteoarthritis of right knee (Acute) 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 (Chronic) monthly change with urology POLST (Physician Orders for Life-Sustaining Treatment) (Acute) Medical History Self-catheterizes urinary bladder DNR (do not resuscitate) DNI (do not intubate) Palliative care patient Gallbladder mass Left inguinal hernia Urinary retention BPH (benign prostatic hyperplasia) Depression High cholesterol Hypertension Family History Mother , age 83 from Alz Dis Dementia Alzheimer's dementia Father , age 83 from aspiration pneumonia following hip fx, SNF placement Heart disease Aspiration pneumonia Hip fracture Brother , age 58 Stomach cancer Daughter No problems noted. Daughter No problems noted. 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 Pets and animals: Yes Pets and animals: cat(s) Sexually active: No Current gender identity: male What is your relationship status?: How often do you talk on the phone with friends or family?: three or more times per week How often do you get together with friends or relatives?: three or more times per week How often do you attend yazdanism or buddhism services?: 1-3 times per year Do you belong to any clubs or organized social groups?: no Panel score (0-1 are the most socially isolated patients): 1 What type of physical activity do you participate in: assisted ambulation Duration: < 15 minutes/day Frequency: daily Lilia/Anabaptist: Mormon Special lilia needs: No Agree to transfusion: No Seatbelt use: always Water heater temp set <120 deg: Yes Working smoke detector in home: Yes Fire extinguisher in home: Yes Firearms in home: No Do you feel safe at home: Yes Do you feel safe in your relationship?: Yes Additional Social history: Jyoti at their apartment on [facility] on 07/13/22. In 2018, they had moved to elderly housing in [place] from [place] where he raised his family and lived x 50 years. Daughter Susan lives near-by. Visits several times per week. He has lived a good life. Falls regularly. Advised caution. Unsafe living situation by himself. Working on looking at Assisted Living. Acutely grieving his . Time Spent with Patient Time Spent with Patient: 45-69 minutes Time was spent: preparing to see the patient(eg.review tests), ordering medications,tests, procedures, referring, communicating with other health rn progressive care, indepentently interpreting results, counseling the patient and care coordination
== END 2024-05-16 13:47 | disposition skilled nursing facility (03) | DRG 690 ==
LOC: ER 05-14 00:46 → MS 05-14 00:48
PROVIDERS: Nurse Practitioner Family; Admitting Provider General Practice; Emergency Provider Emergency Medicine; PCP Nurse Practitioner Family; Visit Provider General Practice
DX: N39.0 Urinary tract infection, site not specified (principal); J90 Pleural effusion, not elsewhere classified; C79.51 Secondary malignant neoplasm of bone; C78.01 Secondary malignant neoplasm of right lung; R63.4 Abnormal weight loss; Z60.2 Problems related to living alone; Z63.4 Disappearance and death of family member; Z99.3 Dependence on wheelchair; G14 Postpolio syndrome; R29.6 Repeated falls; Z96.0 Presence of urogenital implants; F32.A Depression, unspecified; Z87.440 Personal history of urinary (tract) infections; W18.11XA Fall from or off toilet without subsequent striking against object, initial encounter; R53.1 Weakness; R41.0 Disorientation, unspecified; M21.162 Varus deformity, not elsewhere classified, left knee; R41.89 Other symptoms and signs involving cognitive functions and awareness; R31.0 Gross hematuria; M17.0 Bilateral primary osteoarthritis of knee; E78.00 Pure hypercholesterolemia, unspecified; I10 Essential (primary) hypertension; N40.0 Benign prostatic hyperplasia without lower urinary tract symptoms; K82.8 Other specified diseases of gallbladder; C80.1 Malignant (primary) neoplasm, unspecified; B96.5 Pseudomonas (aeruginosa) (mallei) (pseudomallei) as the cause of diseases classified elsewhere
CPT/HCPCS: 00123; 36415; 74177; 80048; 80053; 82550; 87077; 96365; 97162; 97530; 99285; J1650; 70450; 71260; 72125; 72128; 72131; 81003; 81015; 83735; 85025; 85610; 87086; 87186; 99223; 99232; 99239; J0692; J0696; J3475; J3490